=== PATIENT | male | born 1950 | race Caucasian/White ===

== ENCOUNTER 2017-10-27 08:18 | Inpatient (IN) ==
[2017-10-27] MEDS ORDERED: ETOMIDATE 20 MG/10 ML VIAL IV ONE (09:00)
[2017-10-27] MEDS ORDERED: ACETAMINOPHEN 325 MG TABLET PO PRN (10:28)
[2017-10-27] MEDS ORDERED: ONDANSETRON 4 MG/2 ML VIAL IV PRN (10:28)
[2017-10-27] MEDS ORDERED: DEXTROSE 50% 25 GM/50 ML VIAL IV PRN (10:45)
[2017-10-27] MEDS ORDERED: GLUCAGON 1 MG VIAL IM PRN (10:45)
[2017-10-27 11:05] LABS: Basophils # 0.1 10*3/uL (0.0-0.2); Basophils % 0.5 % (0.0-0.8); Eosinophils # 0.1 10*3/uL (0.0-0.87); Hematocrit 32.7 VOL% (42.0-52.0); Hemoglobin 10.6 GM/DL (14.0-18.0); Immature Granulocytes % 0.8 %; Immature Granulocytes Absolute 0.09 #; Lymphocytes # 0.5 10*3/uL (1.4-4.0); Lymphocytes % 4.9 % (21.2-54.2); Mean Corpuscular HGB Conc 32.4 GM/DL (32-36); Mean Corpuscular Hemoglobin 29 PG (27-34); Mean Corpuscular Volume 88.1 FL (87-102); Mean Platelet Volume 10.8 FL (9.6-12.0); Monocytes # 0.6 10*3/uL (0.11-0.8); Monocytes % 5.2 % (1.7-12.7); NRBC # 0.02 10*3/uL; Neutrophils # 9.4 10*3/uL (1.4-7.4); Neutrophils % 87.6 % (38.7-73.9); Platelet Count 180 T/CUMM (130-400); Red Blood Count 3.71 MC/CUMM (3.8-5.5); Red Cell Distribution Width 16.3 % (9.3-17.3); White Blood Count 10.8 T/CUMM (4-12)
[2017-10-27 11:26] LABS: Elliptocytes Few; Eosinophils 1 % (0-10); Giant Platelets Few; Hypochromasia 1+; Lymphocytes 8 % (20-55); Platelet Estimate Normal; Segmented Neutrophils 87 % (50-85); Total Cells Counted 100
[2017-10-27 11:38] LABS: Calcium 8.1 MG/DL (8.5-10.1); Magnesium 3.1 MG/DL (1.8-2.4); Osmolality,Calculated 327.5 MOS/KG (273-304); Potassium 3.2 MMOL/L (3.5-5.1)
[2017-10-27 11:40] LABS: Alanine Aminotransferase 9 U/L (16-61); Albumin 3.3 G/DL (3.4-5.0); Alkaline Phosphatase 236 U/L (45-117); Aspartate Amino Transferase < 3 U/L (0-37); Blood Urea Nitrogen 127 MG/DL (7-18); Calcium 8.4 MG/DL (8.5-10.1); Glucose 255 MG/DL (74-106); Osmolality,Calculated 324.7 MOS/KG (273-304); Potassium 3.2 MMOL/L (3.5-5.1); Sodium 138 MMOL/L (136-145); Total Protein 6.8 G/DL (6.4-8.3)
[2017-10-27] MEDS: INSULIN LISPRO 100 UNIT/ML SUBCUT SCH ×3 (12:37→22:18)
[2017-10-27 13:18] LABS: INR 1.1; PT Patient Result 11.3 SECS; Partial Thromboplastin Time 31.9 SECS (0-40)
[2017-10-27] MEDS ORDERED: BUPIVACAINE 0.25% 50 ML VIAL ONE (14:33)
[2017-10-27] MEDS ORDERED: HEPARIN 5,000 UNIT/1 ML VIAL ONE (14:34)
[2017-10-27] MEDS ORDERED: CLINDAMYCIN INJ 900 MG in PREMIX 1 EACH IV ONE (15:00)
[2017-10-27 15:09] LABS: Hepatitis A Ab IgM Quant < 0.02 Index; Hepatitis A Ab IgM Result Negative (Negative); Hepatitis B Core IgM Quant 0.12 Index; Hepatitis B Core IgM Result Negative (Negative); Hepatitis B Surface Ag Quant < 0.10 Index; Hepatitis B Surface Ag Result Negative (Negative); Hepatitis C Virus Ab Quant 0.03 Index; Hepatitis C Virus Ab Result Negative (Negative)
[2017-10-27] MEDS ORDERED: PROPOFOL 200 MG/20 ML VIAL IV ONE (16:12)
[2017-10-27] MEDS ORDERED: MIDAZOLAM 2 MG/2 ML VIAL ONE (16:13)
[2017-10-27] MEDS ORDERED: ONDANSETRON 4 MG/2 ML VIAL ONE (16:13)
[2017-10-27] MEDS ORDERED: KETOROLAC 30 MG/1 ML VIAL ONE (16:13)
[2017-10-27] MEDS ORDERED: DEXAMETHASONE 10 MG/1 ML VIAL ONE (16:13)
[2017-10-27] MEDS ORDERED: GLYCOPYRROLATE 0.4 MG/2 ML VIAL ONE (16:13)
[2017-10-27] MEDS ORDERED: SODIUM CHLORIDE 0.9% 250 ML IV ONE (16:14)
[2017-10-28 06:59] LABS: Basophils % 0.2 % (0.0-0.8); Hematocrit 30.2 VOL% (42.0-52.0); Hemoglobin 9.8 GM/DL (14.0-18.0); Immature Granulocytes % 1.3 %; Immature Granulocytes Absolute 0.08 #; Lymphocytes # 0.2 10*3/uL (1.4-4.0); Lymphocytes % 2.8 % (21.2-54.2); Mean Corpuscular HGB Conc 32.5 GM/DL (32-36); Mean Corpuscular Hemoglobin 29 PG (27-34); Mean Corpuscular Volume 89.3 FL (87-102); Mean Platelet Volume 11.1 FL (9.6-12.0); Monocytes # 0.1 10*3/uL (0.11-0.8); Monocytes % 0.9 % (1.7-12.7); NRBC # 0.02 10*3/uL; Neutrophils % 94.8 % (38.7-73.9); Platelet Count 171 T/CUMM (130-400); Red Blood Count 3.38 MC/CUMM (3.8-5.5); Red Cell Distribution Width 16.4 % (9.3-17.3); White Blood Count 6.4 T/CUMM (4-12)
[2017-10-28 07:01] LABS: Calcium 8.5 MG/DL (8.5-10.1); Magnesium 2.8 MG/DL (1.8-2.4); Osmolality,Calculated 309.8 MOS/KG (273-304)
[2017-10-28 07:27] LABS: Lymphocytes 2 % (20-55); Nucleated Red Blood Cells 2 (0-5); Platelet Estimate Normal; Segmented Neutrophils 98 % (50-85); Total Cells Counted 100
[2017-10-28 07:28] LABS: Acanthocytes Few; Ovalocytes Few
[2017-10-28] MEDS: INSULIN LISPRO 100 UNIT/ML SUBCUT SCH ×4 (08:41→20:43)
[2017-10-28] MEDS: EZETIMIBE 10 MG TABLET PO SCH (08:42)
[2017-10-28] MEDS: PANTOPRAZOLE 40 MG TABLET PO SCH (08:42)
[2017-10-28 14:35] LABS: ABG Base Excess -3.3 MMOL/L (-2.5-2.5); ABG HCO3 21.6 MMOL/L (20-26); ABG Oxygen Saturation 95.2 % (95-100); ABG PCO2 40.8 MM HG (35-48); ABG PH 7.344 (7.35-7.45); ABG TCO2 20.4 MMOL/L (23-27)
[2017-10-29 06:35] LABS: Basophils % 0.3 % (0.0-0.8); Eosinophils # 0.2 10*3/uL (0.0-0.87); Hematocrit 28.7 VOL% (42.0-52.0); Hemoglobin 9.2 GM/DL (14.0-18.0); Immature Granulocytes % 0.5 %; Immature Granulocytes Absolute 0.04 #; Lymphocytes # 0.7 10*3/uL (1.4-4.0); Mean Corpuscular HGB Conc 32.1 GM/DL (32-36); Mean Corpuscular Hemoglobin 28 PG (27-34); Mean Corpuscular Volume 88.6 FL (87-102); Mean Platelet Volume 11.6 FL (9.6-12.0); Monocytes # 0.6 10*3/uL (0.11-0.8); Monocytes % 7.2 % (1.7-12.7); Neutrophils # 6.2 10*3/uL (1.4-7.4); Platelet Count 183 T/CUMM (130-400); Red Blood Count 3.24 MC/CUMM (3.8-5.5); Red Cell Distribution Width 16.7 % (9.3-17.3); White Blood Count 7.6 T/CUMM (4-12)
[2017-10-29 07:01] LABS: Calcium 8.5 MG/DL (8.5-10.1); Magnesium 2.6 MG/DL (1.8-2.4); Osmolality,Calculated 297.7 MOS/KG (273-304); Potassium 3.5 MMOL/L (3.5-5.1)
[2017-10-29] MEDS: PANTOPRAZOLE 40 MG TABLET PO SCH (09:41)
[2017-10-29] MEDS: EZETIMIBE 10 MG TABLET PO SCH (09:41)
[2017-10-29] MEDS: INSULIN LISPRO 100 UNIT/ML SUBCUT SCH ×4 (09:41→21:01)
[2017-10-29] MEDS: ALBUTEROL/IPRATROPIUM 3 ML NEB RESP TX SCH ×2 (14:50→19:10)
[2017-10-29] MEDS ORDERED: ALBUTEROL 2.5 MG/3 ML NEB RESP TX PRN (18:17)
[2017-10-29] MEDS: DILTIAZEM CD 120 MG CAPSULE PO SCH (20:28)
[2017-10-30] MEDS: ALBUTEROL/IPRATROPIUM 3 ML NEB RESP TX SCH ×4 (00:38→19:35)
[2017-10-30 06:23] LABS: Basophils % 0.4 % (0.0-0.8); Eosinophils # 0.3 10*3/uL (0.0-0.87); Eosinophils % 3.6 % (0.00-10.9); Immature Granulocytes % 0.6 %; Immature Granulocytes Absolute 0.05 #; Lymphocytes # 0.7 10*3/uL (1.4-4.0); Lymphocytes % 9.4 % (21.2-54.2); Mean Corpuscular HGB Conc 32.3 GM/DL (32-36); Mean Corpuscular Hemoglobin 29 PG (27-34); Mean Corpuscular Volume 89.1 FL (87-102); Mean Platelet Volume 10.7 FL (9.6-12.0); Monocytes # 0.7 10*3/uL (0.11-0.8); Monocytes % 8.8 % (1.7-12.7); Neutrophils # 6.1 10*3/uL (1.4-7.4); Neutrophils % 77.2 % (38.7-73.9); Platelet Count 175 T/CUMM (130-400); Red Blood Count 3.48 MC/CUMM (3.8-5.5); Red Cell Distribution Width 16.5 % (9.3-17.3); White Blood Count 7.9 T/CUMM (4-12)
[2017-10-30 06:53] LABS: Calcium 8.4 MG/DL (8.5-10.1); Magnesium 2.2 MG/DL (1.8-2.4); Potassium 3.4 MMOL/L (3.5-5.1)
[2017-10-30] MEDS: INSULIN LISPRO 100 UNIT/ML SUBCUT SCH ×4 (07:41→20:54)
[2017-10-30] MEDS: EZETIMIBE 10 MG TABLET PO SCH (08:02)
[2017-10-30] MEDS: PANTOPRAZOLE 40 MG TABLET PO SCH (08:02)
[2017-10-30 08:37] LABS: Apearance,Urine Slightly Hazy (Clear); Bacteria,Urine Occasional /HPF (Few); Bilirubin,Urine Negative (Negative); Blood, Urine Negative (Negative); Glucose,Urine (UA) Negative (Negative); Hyaline Casts,Urine 1 /LPF (0-3); Ketones,Urine 5 mg/dL (Negative); Mucus,Urine Occasional /LPF (Occasional); Nitrite,Urine Negative (Negative); Protein,Urine 100 MG/DL; RBC,Urine 2 /HPF (0-4); Squamous Epithelial Cell,Urine Occasional /HPF (0-10); Urine Color Amber (Yellow); Urine Specific Gravity 1.017 (1.001-1.035); Urine Urobilinogen < 2.0 EU/DL (0.2-1.0); WBC,Urine 2 /HPF (0-6)
[2017-10-30] MEDS: CYPROHEPTADINE 4 MG TABLET PO SCH ×2 (16:15→21:15)
[2017-10-30] MEDS: DILTIAZEM CD 120 MG CAPSULE PO SCH (20:23)
[2017-10-31] MEDS: ALBUTEROL/IPRATROPIUM 3 ML NEB RESP TX SCH ×4 (02:00→19:11)
[2017-10-31 06:42] LABS: Basophils % 0.4 % (0.0-0.8); Eosinophils # 0.3 10*3/uL (0.0-0.87); Eosinophils % 3.9 % (0.00-10.9); Hematocrit 31.9 VOL% (42.0-52.0); Hemoglobin 10.4 GM/DL (14.0-18.0); Immature Granulocytes % 0.5 %; Immature Granulocytes Absolute 0.04 #; Lymphocytes # 0.7 10*3/uL (1.4-4.0); Lymphocytes % 8.4 % (21.2-54.2); Mean Corpuscular HGB Conc 32.6 GM/DL (32-36); Mean Corpuscular Hemoglobin 29 PG (27-34); Mean Corpuscular Volume 88.9 FL (87-102); Mean Platelet Volume 11.2 FL (9.6-12.0); Monocytes # 0.8 10*3/uL (0.11-0.8); Monocytes % 10.5 % (1.7-12.7); Neutrophils # 6.1 10*3/uL (1.4-7.4); Neutrophils % 76.3 % (38.7-73.9); Platelet Count 187 T/CUMM (130-400); Red Blood Count 3.59 MC/CUMM (3.8-5.5); Red Cell Distribution Width 16.3 % (9.3-17.3)
[2017-10-31 07:09] LABS: Calcium 8.7 MG/DL (8.5-10.1); Magnesium 2.2 MG/DL (1.8-2.4); Osmolality,Calculated 279.8 MOS/KG (273-304); Potassium 3.2 MMOL/L (3.5-5.1)
[2017-10-31] MEDS: CYPROHEPTADINE 4 MG TABLET PO SCH ×2 (08:21→21:28)
[2017-10-31] MEDS: BISOPROLOL 5 MG TABLET PO SCH (08:21)
[2017-10-31] MEDS: PANTOPRAZOLE 40 MG TABLET PO SCH (08:21)
[2017-10-31] MEDS: EZETIMIBE 10 MG TABLET PO SCH (08:21)
[2017-10-31] MEDS ORDERED: METOPROLOL TARTRATE 5 MG/5 ML VIAL IV ONE (08:30)
[2017-10-31] MEDS: INSULIN LISPRO 100 UNIT/ML SUBCUT SCH ×4 (08:44→21:29)
[2017-10-31] MEDS ORDERED: BISOPROLOL 5 MG TABLET PO SCH (09:00)
[2017-10-31] MEDS: ZINC OXIDE PASTE 113 GM TUBE TOP SCH ×2 (15:46→21:29)
[2017-10-31] MEDS: DILTIAZEM CD 120 MG CAPSULE PO SCH (21:28)
[2017-11-01] MEDS: ALBUTEROL/IPRATROPIUM 3 ML NEB RESP TX SCH ×4 (00:39→20:36)
[2017-11-01] MEDS: INSULIN LISPRO 100 UNIT/ML SUBCUT SCH ×4 (07:28→21:18)
[2017-11-01] MEDS: ZINC OXIDE PASTE 113 GM TUBE TOP SCH ×2 (08:27→21:21)
[2017-11-01] MEDS: EZETIMIBE 10 MG TABLET PO SCH (08:28)
[2017-11-01] MEDS: BISOPROLOL 5 MG TABLET PO SCH ×2 (08:28→10:08)
[2017-11-01] MEDS: CYPROHEPTADINE 4 MG TABLET PO SCH ×2 (08:28→21:18)
[2017-11-01] MEDS: PANTOPRAZOLE 40 MG TABLET PO SCH (08:28)
[2017-11-01] MEDS ORDERED: HEPARIN 10,000 UNIT/10 ML VIAL IV PRN (18:34)
[2017-11-01] MEDS: DILTIAZEM CD 240 MG CAPSULE PO SCH (21:18)
[2017-11-02] MEDS: ALBUTEROL/IPRATROPIUM 3 ML NEB RESP TX SCH ×4 (01:19→19:11)
[2017-11-02] MEDS: INSULIN LISPRO 100 UNIT/ML SUBCUT SCH ×4 (08:40→20:34)
[2017-11-02] MEDS: EZETIMIBE 10 MG TABLET PO SCH (08:41)
[2017-11-02] MEDS: BISOPROLOL 5 MG TABLET PO SCH (08:41)
[2017-11-02] MEDS: CYPROHEPTADINE 4 MG TABLET PO SCH ×2 (08:41→20:35)
[2017-11-02] MEDS: PANTOPRAZOLE 40 MG TABLET PO SCH (08:41)
[2017-11-02] MEDS: ZINC OXIDE PASTE 113 GM TUBE TOP SCH ×2 (08:42→20:35)
[2017-11-02] MEDS ORDERED: EYE WASH SOLN 118 ML BOTTLE BOTH EYES PRN (12:03)
[2017-11-02] MEDS ORDERED: POLYVINYL ALCOHOL 1.4% OPH SOLN 15 ML BOTTLE BOTH EYES PRN (12:24)
[2017-11-02] MEDS: DILTIAZEM CD 240 MG CAPSULE PO SCH (20:35)
[2017-11-03] MEDS: ALBUTEROL/IPRATROPIUM 3 ML NEB RESP TX SCH ×4 (00:06→21:55)
[2017-11-03 05:04] LABS: Basophils % 0.5 % (0.0-0.8); Eosinophils # 0.4 10*3/uL (0.0-0.87); Eosinophils % 5.4 % (0.00-10.9); Hematocrit 30.4 VOL% (42.0-52.0); Hemoglobin 9.7 GM/DL (14.0-18.0); Immature Granulocytes % 0.6 %; Immature Granulocytes Absolute 0.05 #; Lymphocytes # 0.9 10*3/uL (1.4-4.0); Lymphocytes % 11.4 % (21.2-54.2); Mean Corpuscular HGB Conc 31.9 GM/DL (32-36); Mean Corpuscular Hemoglobin 28 PG (27-34); Mean Corpuscular Volume 89.1 FL (87-102); Mean Platelet Volume 11.2 FL (9.6-12.0); Monocytes # 0.7 10*3/uL (0.11-0.8); Monocytes % 8.5 % (1.7-12.7); Neutrophils # 5.8 10*3/uL (1.4-7.4); Neutrophils % 73.6 % (38.7-73.9); Platelet Count 174 T/CUMM (130-400); Red Blood Count 3.41 MC/CUMM (3.8-5.5); Red Cell Distribution Width 16.3 % (9.3-17.3); White Blood Count 7.9 T/CUMM (4-12)
[2017-11-03 05:33] LABS: Calcium 8.3 MG/DL (8.5-10.1); Magnesium 2.4 MG/DL (1.8-2.4); Osmolality,Calculated 295.7 MOS/KG (273-304); Potassium 3.2 MMOL/L (3.5-5.1)
[2017-11-03] MEDS: INSULIN LISPRO 100 UNIT/ML SUBCUT SCH ×3 (08:34→17:26)
[2017-11-03] MEDS: CYPROHEPTADINE 4 MG TABLET PO SCH ×2 (13:37→21:40)
[2017-11-03] MEDS: ZINC OXIDE PASTE 113 GM TUBE TOP SCH ×2 (13:37→21:41)
[2017-11-03] MEDS: ASPIRIN EC 81 MG TABLET PO SCH (13:37)
[2017-11-03] MEDS: EZETIMIBE 10 MG TABLET PO SCH (13:37)
[2017-11-03] MEDS: BISOPROLOL 5 MG TABLET PO SCH (13:37)
[2017-11-03] MEDS: PANTOPRAZOLE 40 MG TABLET PO SCH (13:38)
[2017-11-03] MEDS: LISINOPRIL 5 MG TABLET PO SCH (14:58)
[2017-11-03] MEDS ORDERED: diphenhydrAMINE CAP 25 MG CAPSULE PO ONE (15:45)
[2017-11-03] MEDS ORDERED: POTASSIUM CHLORIDE RIDER 10 MEQ in PREMIX 1 EACH IV PRN (15:45)
[2017-11-03] MEDS ORDERED: MAGNESIUM SULF RIDER 2 GM in PREMIX 1 EACH IV PRN (15:45)
[2017-11-03] MEDS ORDERED: DIAZEPAM 5 MG TABLET PO ONE (15:45)
[2017-11-03] MEDS: DILTIAZEM CD 240 MG CAPSULE PO SCH (21:39)
[2017-11-04] MEDS: INSULIN LISPRO 100 UNIT/ML SUBCUT SCH ×5 (00:49→20:36)
[2017-11-04] MEDS: ALBUTEROL/IPRATROPIUM 3 ML NEB RESP TX SCH ×3 (02:03→18:53)
[2017-11-04 04:47] LABS: Basophils # 0.1 10*3/uL (0.0-0.2); Basophils % 0.6 % (0.0-0.8); Eosinophils # 0.4 10*3/uL (0.0-0.87); Eosinophils % 4.8 % (0.00-10.9); Hematocrit 32.6 VOL% (42.0-52.0); Hemoglobin 10.3 GM/DL (14.0-18.0); Immature Granulocytes % 0.9 %; Immature Granulocytes Absolute 0.07 #; Lymphocytes # 0.9 10*3/uL (1.4-4.0); Lymphocytes % 11.4 % (21.2-54.2); Mean Corpuscular HGB Conc 31.6 GM/DL (32-36); Mean Corpuscular Hemoglobin 28 PG (27-34); Mean Corpuscular Volume 89.1 FL (87-102); Mean Platelet Volume 11.3 FL (9.6-12.0); Monocytes # 0.8 10*3/uL (0.11-0.8); Monocytes % 10.5 % (1.7-12.7); Neutrophils # 5.7 10*3/uL (1.4-7.4); Neutrophils % 71.8 % (38.7-73.9); Platelet Count 196 T/CUMM (130-400); Red Blood Count 3.66 MC/CUMM (3.8-5.5); Red Cell Distribution Width 16.1 % (9.3-17.3); White Blood Count 7.9 T/CUMM (4-12)
[2017-11-04 04:51] LABS: PT Patient Result 10.9 SECS
[2017-11-04 05:17] LABS: Calcium 8.9 MG/DL (8.5-10.1); Magnesium 2.2 MG/DL (1.8-2.4); Potassium 3.5 MMOL/L (3.5-5.1)
[2017-11-04] MEDS ORDERED: DIAZEPAM 5 MG TABLET ONE (07:24)
[2017-11-04] MEDS ORDERED: diphenhydrAMINE CAP 25 MG CAPSULE ONE (07:24)
[2017-11-04] MEDS: CYPROHEPTADINE 4 MG TABLET PO SCH ×2 (08:03→20:34)
[2017-11-04] MEDS: BISOPROLOL 5 MG TABLET PO SCH (08:03)
[2017-11-04] MEDS: PANTOPRAZOLE 40 MG TABLET PO SCH (08:03)
[2017-11-04] MEDS: EZETIMIBE 10 MG TABLET PO SCH (08:03)
[2017-11-04] MEDS: LISINOPRIL 5 MG TABLET PO SCH (08:03)
[2017-11-04] MEDS: ASPIRIN EC 81 MG TABLET PO SCH (08:03)
[2017-11-04] MEDS: ZINC OXIDE PASTE 113 GM TUBE TOP SCH ×2 (08:04→20:34)
[2017-11-04] MEDS ORDERED: LIDOCAINE 1% 20 ML VIAL ONE (08:35)
[2017-11-04] MEDS ORDERED: HEPARIN/NACL 0.9% 2 UNITS/ML 2,000 ML IV ONE (08:35)
[2017-11-04] MEDS ORDERED: HYDROmorphone 2 MG/1 ML VIAL ONE (09:30)
[2017-11-04] MEDS ORDERED: BIVALIRUDIN 250 MG VIAL IV ONE (09:45)
[2017-11-04] MEDS ORDERED: TICAGRELOR 90 MG TABLET ONE (10:15)
[2017-11-04] MEDS: TICAGRELOR 90 MG TABLET PO SCH (20:33)
[2017-11-04] MEDS: DILTIAZEM CD 240 MG CAPSULE PO SCH (20:34)
[2017-11-05] MEDS: ALBUTEROL/IPRATROPIUM 3 ML NEB RESP TX SCH ×4 (00:33→19:25)
[2017-11-05 05:35] LABS: Basophils # 0.1 10*3/uL (0.0-0.2); Basophils % 0.7 % (0.0-0.8); Eosinophils # 0.3 10*3/uL (0.0-0.87); Eosinophils % 4.6 % (0.00-10.9); Hematocrit 31.6 VOL% (42.0-52.0); Hemoglobin 9.7 GM/DL (14.0-18.0); Immature Granulocytes % 1.1 %; Immature Granulocytes Absolute 0.08 #; Lymphocytes # 0.8 10*3/uL (1.4-4.0); Lymphocytes % 10.2 % (21.2-54.2); Mean Corpuscular HGB Conc 30.7 GM/DL (32-36); Mean Corpuscular Hemoglobin 28 PG (27-34); Mean Corpuscular Volume 89.8 FL (87-102); Mean Platelet Volume 11.6 FL (9.6-12.0); Monocytes # 0.8 10*3/uL (0.11-0.8); Monocytes % 11.1 % (1.7-12.7); Neutrophils # 5.3 10*3/uL (1.4-7.4); Neutrophils % 72.3 % (38.7-73.9); Platelet Count 198 T/CUMM (130-400); Red Blood Count 3.52 MC/CUMM (3.8-5.5); Red Cell Distribution Width 16.4 % (9.3-17.3); White Blood Count 7.3 T/CUMM (4-12)
[2017-11-05 05:57] LABS: Eosinophils 6 % (0-10); Giant Platelets Few; Hypochromasia 1+; Lymphocytes 9 % (20-55); Ovalocytes Slight; Platelet Estimate Adequate; Segmented Neutrophils 73 % (50-85); Total Cells Counted 100
[2017-11-05 06:22] LABS: Blood Urea Nitrogen 44 MG/DL (7-18); Calcium 8.2 MG/DL (8.5-10.1); Glucose 171 MG/DL (74-106); Osmolality,Calculated 280.4 MOS/KG (273-304); Sodium 133 MMOL/L (136-145); Troponin I Only 0.033 NG/ML (0.00-0.045)
[2017-11-05] MEDS: EZETIMIBE 10 MG TABLET PO SCH (08:56)
[2017-11-05] MEDS: TICAGRELOR 90 MG TABLET PO SCH ×2 (08:56→21:16)
[2017-11-05] MEDS: CYPROHEPTADINE 4 MG TABLET PO SCH ×2 (08:56→21:16)
[2017-11-05] MEDS: ASPIRIN EC 81 MG TABLET PO SCH (08:56)
[2017-11-05] MEDS: PANTOPRAZOLE 40 MG TABLET PO SCH (08:56)
[2017-11-05] MEDS: INSULIN LISPRO 100 UNIT/ML SUBCUT SCH ×4 (08:57→21:17)
[2017-11-05] MEDS: LISINOPRIL 5 MG TABLET PO SCH (08:57)
[2017-11-05] MEDS: BISOPROLOL 5 MG TABLET PO SCH (08:57)
[2017-11-05] MEDS: ZINC OXIDE PASTE 113 GM TUBE TOP SCH ×2 (08:57→21:17)
[2017-11-06] MEDS: ALBUTEROL/IPRATROPIUM 3 ML NEB RESP TX SCH ×2 (00:23→07:26)
[2017-11-06] MEDS: INSULIN LISPRO 100 UNIT/ML SUBCUT SCH ×2 (08:45→12:42)
[2017-11-06] MEDS: EZETIMIBE 10 MG TABLET PO SCH (08:46)
[2017-11-06] MEDS: PANTOPRAZOLE 40 MG TABLET PO SCH (08:46)
[2017-11-06] MEDS: ASPIRIN EC 81 MG TABLET PO SCH (08:46)
[2017-11-06] MEDS: TICAGRELOR 90 MG TABLET PO SCH (08:46)
[2017-11-06] MEDS: CYPROHEPTADINE 4 MG TABLET PO SCH (08:46)
[2017-11-06] MEDS: ZINC OXIDE PASTE 113 GM TUBE TOP SCH (08:47)
[2017-11-06] MEDS ORDERED: BISOPROLOL 5 MG TABLET PO SCH ×2 (09:00)
[2017-11-06] MEDS ORDERED: BISOPROLOL 5 MG TABLET PO ONE (10:03)
[2017-11-06] MEDS ORDERED: FERROUS SULFATE 325 MG TABLET PO SCH (10:30)
[2017-11-06] MEDS ORDERED: OMEGA 3 ACID ETHYL ESTERS 1 GM CAPSULE PO SCH (10:30)
[2017-11-06 12:48] VITALS: BP 123/59
[2017-11-07] MEDS ORDERED: ATORVASTATIN 40 MG TABLET PO SCH (09:00)
[2017-11-07] MEDS ORDERED: BISOPROLOL 5 MG TABLET PO SCH (09:00)
== END 2017-11-06 13:25 | disposition home or self-care (01) | DRG 246 ==
LOC: N.2E 09:20 → SUATTDRO 09:20 → N.TELES 10-31 09:09
PROVIDERS: ADMIT Hospitalist; ATTEND Internal Medicine

== ENCOUNTER 2018-05-18 17:52 | Inpatient (IN) ==
[2018-05-18 18:28] LABS: Basophils # 0.1 10*3/uL (0.0-0.2); Basophils % 0.4 % (0.0-0.8); Eosinophils # 0.2 10*3/uL (0.0-0.87); Eosinophils % 1.3 % (0.00-10.9); Hematocrit 35.1 VOL% (42.0-52.0); Hemoglobin 11.5 GM/DL (14.0-18.0); Immature Granulocytes % 1.1 %; Immature Granulocytes Absolute 0.15 #; Lymphocytes # 1.3 10*3/uL (1.4-4.0); Lymphocytes % 9.3 % (21.2-54.2); Mean Corpuscular HGB Conc 32.8 GM/DL (32-36); Mean Corpuscular Hemoglobin 33 PG (27-34); Mean Corpuscular Volume 99.7 FL (87-102); Mean Platelet Volume 10.8 FL (9.6-12.0); Monocytes # 0.9 10*3/uL (0.11-0.8); Monocytes % 6.4 % (1.7-12.7); NRBC # 0.02 10*3/uL; Neutrophils % 81.5 % (38.7-73.9); Platelet Count 197 T/CUMM (130-400); Red Blood Count 3.52 MC/CUMM (3.8-5.5); Red Cell Distribution Width 15.7 % (9.3-17.3); White Blood Count 13.5 T/CUMM (4-12)
[2018-05-18 19:26] LABS: Calcium 8.6 MG/DL (8.5-10.1)
[2018-05-18 19:27] LABS: Albumin 3.1 G/DL (3.4-5.0); Bilirubin,Total 0.5 MG/DL (0.2-1.0); Osmolality,Calculated 277.8 MOS/KG (273-304); Potassium 5.7 MMOL/L (3.5-5.1); Total Protein 7.5 G/DL (6.4-8.3)
[2018-05-18] MEDS ORDERED: SODIUM CHLORIDE 0.9% 500 ML IV STA (23:22)
[2018-05-19] MEDS ORDERED: SODIUM POLYSTYRENE SULFATE 15 GM/60 ML BOTTLE PO STA (00:08)
[2018-05-19] MEDS ORDERED: AMIODARONE INJ 150 MG in DEXTROSE 5% 100 ML IV ONE (01:22)
[2018-05-19] MEDS ORDERED: PIPERACILLIN/TAZOBACTAM 2,250 MG in SODIUM CHLORIDE 0.9% 100 ML IV STA (01:23)
[2018-05-19] MEDS ORDERED: GLUCAGON 1 MG VIAL IM PRN (01:46)
[2018-05-19] MEDS ORDERED: DEXTROSE 50% 25 GM/50 ML VIAL IV PRN (01:46)
[2018-05-19] MEDS ORDERED: AMIODARONE INJ 450 MG in DEXTROSE 5% 241 ML IV SCH ×2 (03:30→09:30)
[2018-05-19] MEDS: metroNIDAZOLE INJ 500 MG in PREMIX 1 EACH IV SCH ×3 (03:50→17:48)
[2018-05-19] MEDS: PIPERACILLIN/TAZOBACTAM 3,375 MG in SODIUM CHLORIDE 0.9% 100 ML IV SCH ×2 (04:50→18:48)
[2018-05-19 05:44] LABS: Basophils # 0.1 10*3/uL (0.0-0.2); Basophils % 0.5 % (0.0-0.8); Eosinophils # 0.2 10*3/uL (0.0-0.87); Eosinophils % 1.9 % (0.00-10.9); Hematocrit 33.4 VOL% (42.0-52.0); Hemoglobin 10.9 GM/DL (14.0-18.0); Lymphocytes % 10.1 % (21.2-54.2); Mean Corpuscular HGB Conc 32.6 GM/DL (32-36); Mean Corpuscular Hemoglobin 33 PG (27-34); Monocytes # 0.9 10*3/uL (0.11-0.8); Monocytes % 8.4 % (1.7-12.7); Neutrophils # 7.9 10*3/uL (1.4-7.4); Neutrophils % 78.1 % (38.7-73.9); Red Blood Count 3.34 MC/CUMM (3.8-5.5); Red Cell Distribution Width 15.4 % (9.3-17.3); White Blood Count 10.2 T/CUMM (4-12)
[2018-05-19 05:47] LABS: Platelet Count 155 T/CUMM (130-400)
[2018-05-19 06:11] LABS: Macrocytosis 2+; Platelet Estimate Normal
[2018-05-19 06:15] LABS: Albumin 2.6 G/DL (3.4-5.0); Bilirubin,Total 0.4 MG/DL (0.2-1.0); Calcium 8.1 MG/DL (8.5-10.1); Osmolality,Calculated 282.7 MOS/KG (273-304); Potassium 5.6 MMOL/L (3.5-5.1)
[2018-05-19] MEDS: MORPHINE 4 MG/1 ML VIAL IV PRN ×2 (07:50→11:46)
[2018-05-19] MEDS ORDERED: DILTIAZEM CD 300 MG CAPSULE PO SCH (09:00)
[2018-05-19] MEDS ORDERED: PANTOPRAZOLE 40 MG TABLET PO SCH (09:00)
[2018-05-19] MEDS ORDERED: BISOPROLOL 5 MG TABLET PO SCH (09:00)
[2018-05-19] MEDS: INSULIN REGULAR 100 UNIT/ML SUBCUT SCH ×4 (09:36→20:41)
[2018-05-19] MEDS: PANTOPRAZOLE 40 MG VIAL IV SCH (09:36)
[2018-05-19] MEDS: CLOPIDOGREL 75 MG TABLET PO SCH (09:37)
[2018-05-19] MEDS: POLYCARBOPHIL 625 MG TABLET PO SCH (09:37)
[2018-05-19] MEDS: NOREPINEPHRINE 8 MG in SODIUM CHLORIDE 0.9% 242 ML IV PRN ×2 (12:38→17:40)
[2018-05-19 16:43] LABS: Calcium 8.4 MG/DL (8.5-10.1); Osmolality,Calculated 284.5 MOS/KG (273-304)
[2018-05-19] MEDS ORDERED: ALBUMIN 25% 25 GM in PREMIX 1 EACH IV ONE (17:39)
[2018-05-19] MEDS ORDERED: CALCIUM GLUCONATE 1,000 MG in SODIUM CHLORIDE 0.9% 100 ML IV ONE (17:39)
[2018-05-19 17:50] LABS: Basophils # 0.1 10*3/uL (0.0-0.2); Basophils % 0.5 % (0.0-0.8); Eosinophils # 0.1 10*3/uL (0.0-0.87); Eosinophils % 0.9 % (0.00-10.9); Hemoglobin 11.9 GM/DL (14.0-18.0); Immature Granulocytes Absolute 0.26 #; Lymphocytes # 1.4 10*3/uL (1.4-4.0); Lymphocytes % 10.3 % (21.2-54.2); Mean Corpuscular HGB Conc 33.1 GM/DL (32-36); Mean Corpuscular Hemoglobin 33 PG (27-34); Mean Corpuscular Volume 98.6 FL (87-102); Mean Platelet Volume 11.1 FL (9.6-12.0); Monocytes # 1.1 10*3/uL (0.11-0.8); Monocytes % 8.4 % (1.7-12.7); NRBC # 0.04 10*3/uL; Neutrophils # 10.4 10*3/uL (1.4-7.4); Neutrophils % 77.9 % (38.7-73.9); Platelet Count 254 T/CUMM (130-400); Red Blood Count 3.65 MC/CUMM (3.8-5.5); Red Cell Distribution Width 15.6 % (9.3-17.3); White Blood Count 13.3 T/CUMM (4-12)
[2018-05-19] MEDS: POLYETHYLENE GLYCOL POWDER 17 GM PACK PO SCH ×2 (18:49→21:38)
[2018-05-19] MEDS ORDERED: ATORVASTATIN 80 MG TABLET PO SCH (21:00)
[2018-05-20] MEDS: metroNIDAZOLE INJ 500 MG in PREMIX 1 EACH IV SCH (02:15)
[2018-05-20 05:14] LABS: Calcium 8.1 MG/DL (8.5-10.1); Osmolality,Calculated 280.4 MOS/KG (273-304); Potassium 4.8 MMOL/L (3.5-5.1)
[2018-05-20 05:25] LABS: Albumin 2.6 G/DL (3.4-5.0); Bilirubin,Total 0.8 MG/DL (0.2-1.0); Osmolality,Calculated 283.1 MOS/KG (273-304); Potassium 4.7 MMOL/L (3.5-5.1); Total Protein 6.7 G/DL (6.4-8.3)
[2018-05-20] MEDS: PIPERACILLIN/TAZOBACTAM 3,375 MG in SODIUM CHLORIDE 0.9% 100 ML IV SCH ×2 (06:34→16:30)
[2018-05-20 07:28] LABS: Basophils % 0.5 % (0.0-0.8); Eosinophils # 0.2 10*3/uL (0.0-0.87); Eosinophils % 2.6 % (0.00-10.9); Hematocrit 30.1 VOL% (42.0-52.0); Immature Granulocytes % 1.4 %; Immature Granulocytes Absolute 0.12 #; Lymphocytes # 0.7 10*3/uL (1.4-4.0); Lymphocytes % 8.5 % (21.2-54.2); Mean Corpuscular HGB Conc 32.6 GM/DL (32-36); Mean Corpuscular Hemoglobin 33 PG (27-34); Mean Corpuscular Volume 100.3 FL (87-102); Mean Platelet Volume 11.1 FL (9.6-12.0); Monocytes # 0.7 10*3/uL (0.11-0.8); Monocytes % 7.4 % (1.7-12.7); Neutrophils % 79.6 % (38.7-73.9); Red Cell Distribution Width 15.3 % (9.3-17.3)
[2018-05-20 07:29] LABS: Hemoglobin 9.8 GM/DL (14.0-18.0); White Blood Count 8.7 T/CUMM (4-12)
[2018-05-20 07:30] LABS: Platelet Count 170 T/CUMM (130-400)
[2018-05-20] MEDS ORDERED: ONDANSETRON 4 MG/2 ML VIAL IV PRN (08:38)
[2018-05-20] MEDS ORDERED: ONDANSETRON 4 MG/2 ML VIAL ONE (08:39)
[2018-05-20] MEDS: INSULIN REGULAR 100 UNIT/ML SUBCUT SCH ×4 (08:58→21:52)
[2018-05-20] MEDS: POLYCARBOPHIL 625 MG TABLET PO SCH (09:21)
[2018-05-20] MEDS: CLOPIDOGREL 75 MG TABLET PO SCH (09:21)
[2018-05-20] MEDS: POLYETHYLENE GLYCOL POWDER 17 GM PACK PO SCH ×3 (09:22→21:52)
[2018-05-20] MEDS: ENOXAPARIN 30 MG/0.3 ML SYRINGE SUBCUT SCH (09:22)
[2018-05-20] MEDS: PANTOPRAZOLE 40 MG VIAL IV SCH (09:22)
[2018-05-20] MEDS ORDERED: ALBUTEROL/IPRATROPIUM 3 ML NEB RESP TX ONE (12:06)
[2018-05-20] MEDS: NOREPINEPHRINE 8 MG in SODIUM CHLORIDE 0.9% 242 ML IV PRN ×2 (12:40→21:56)
[2018-05-20] MEDS ORDERED: SODIUM CHLORIDE 0.9% 500 ML IV ONE (14:45)
[2018-05-20] MEDS: MIDODRINE 5 MG TABLET PO SCH ×2 (14:55→21:52)
[2018-05-20] MEDS: ALBUTEROL/IPRATROPIUM 3 ML NEB RESP TX SCH ×3 (16:17→23:59)
[2018-05-20] MEDS: FLUTICASONE 50 MCG NASAL SPRAY 16 GM BOTTLE BOTH NARES SCH (21:52)
[2018-05-21] MEDS: PIPERACILLIN/TAZOBACTAM 3,375 MG in SODIUM CHLORIDE 0.9% 100 ML IV SCH ×2 (03:42→17:32)
[2018-05-21] MEDS: ALBUTEROL/IPRATROPIUM 3 ML NEB RESP TX SCH ×6 (04:00→23:01)
[2018-05-21 04:50] LABS: ABG Base Excess -3.7 MMOL/L (-2.5-2.5); ABG HCO3 22.2 MMOL/L (20-26); ABG Oxygen Saturation 94.5 % (95-100); ABG PCO2 43.5 MM HG (35-48); ABG PH 7.326 (7.35-7.45); ABG PO2 84.6 MM HG (80-95); ABG TCO2 23.5 MMOL/L (23-27); Allen Test Positive
[2018-05-21] MEDS: NOREPINEPHRINE 8 MG in SODIUM CHLORIDE 0.9% 242 ML IV PRN (05:33)
[2018-05-21 05:44] LABS: Basophils # 0.1 10*3/uL (0.0-0.2); Basophils % 0.7 % (0.0-0.8); Eosinophils # 0.2 10*3/uL (0.0-0.87); Eosinophils % 2.6 % (0.00-10.9); Hematocrit 31.6 VOL% (42.0-52.0); Hemoglobin 10.4 GM/DL (14.0-18.0); Immature Granulocytes % 1.5 %; Immature Granulocytes Absolute 0.14 #; Lymphocytes # 1.1 10*3/uL (1.4-4.0); Lymphocytes % 11.9 % (21.2-54.2); Mean Corpuscular HGB Conc 32.9 GM/DL (32-36); Mean Corpuscular Hemoglobin 32 PG (27-34); Mean Corpuscular Volume 98.1 FL (87-102); Monocytes % 10.6 % (1.7-12.7); NRBC # 0.02 10*3/uL; Neutrophils # 6.7 10*3/uL (1.4-7.4); Neutrophils % 72.7 % (38.7-73.9); Platelet Count 221 T/CUMM (130-400); Red Blood Count 3.22 MC/CUMM (3.8-5.5); Red Cell Distribution Width 15.1 % (9.3-17.3); White Blood Count 9.2 T/CUMM (4-12)
[2018-05-21 06:08] LABS: Albumin 2.4 G/DL (3.4-5.0); Bilirubin,Total 0.7 MG/DL (0.2-1.0); Calcium 8.1 MG/DL (8.5-10.1); Osmolality,Calculated 287.2 MOS/KG (273-304); Total Protein 6.6 G/DL (6.4-8.3)
[2018-05-21] MEDS: INSULIN REGULAR 100 UNIT/ML SUBCUT SCH ×4 (08:50→21:13)
[2018-05-21] MEDS: POLYCARBOPHIL 625 MG TABLET PO SCH (09:00)
[2018-05-21] MEDS: MIDODRINE 5 MG TABLET PO SCH ×3 (09:00→21:13)
[2018-05-21] MEDS: CLOPIDOGREL 75 MG TABLET PO SCH (09:00)
[2018-05-21] MEDS: ENOXAPARIN 30 MG/0.3 ML SYRINGE SUBCUT SCH (09:00)
[2018-05-21] MEDS: PANTOPRAZOLE 40 MG VIAL IV SCH (09:01)
[2018-05-21] MEDS: POLYETHYLENE GLYCOL POWDER 17 GM PACK PO SCH ×2 (09:01→17:29)
[2018-05-21] MEDS ORDERED: DIGOXIN 0.5 MG/2 ML AMP IV ONE (11:00)
[2018-05-21] MEDS: DILTIAZEM CD 180 MG CAPSULE PO SCH (14:53)
[2018-05-21] MEDS: FLUTICASONE 50 MCG NASAL SPRAY 16 GM BOTTLE BOTH NARES SCH (21:13)
[2018-05-22] MEDS: ALBUTEROL/IPRATROPIUM 3 ML NEB RESP TX SCH ×6 (03:15→23:40)
[2018-05-22] MEDS: PIPERACILLIN/TAZOBACTAM 3,375 MG in SODIUM CHLORIDE 0.9% 100 ML IV SCH ×2 (03:40→16:13)
[2018-05-22 03:47] LABS: Basophils # 0.1 10*3/uL (0.0-0.2); Basophils % 0.6 % (0.0-0.8); Eosinophils # 0.2 10*3/uL (0.0-0.87); Eosinophils % 2.5 % (0.00-10.9); Hematocrit 29.7 VOL% (42.0-52.0); Hemoglobin 9.5 GM/DL (14.0-18.0); Immature Granulocytes % 1.9 %; Immature Granulocytes Absolute 0.16 #; Lymphocytes # 0.6 10*3/uL (1.4-4.0); Lymphocytes % 7.5 % (21.2-54.2); Mean Corpuscular Hemoglobin 32 PG (27-34); Mean Corpuscular Volume 100.3 FL (87-102); Mean Platelet Volume 10.7 FL (9.6-12.0); Monocytes # 0.8 10*3/uL (0.11-0.8); Monocytes % 9.3 % (1.7-12.7); NRBC # 0.03 10*3/uL; Neutrophils # 6.5 10*3/uL (1.4-7.4); Neutrophils % 78.2 % (38.7-73.9); Platelet Count 196 T/CUMM (130-400); Red Blood Count 2.96 MC/CUMM (3.8-5.5); Red Cell Distribution Width 15.3 % (9.3-17.3); White Blood Count 8.4 T/CUMM (4-12)
[2018-05-22 04:10] LABS: Calcium 7.8 MG/DL (8.5-10.1); Osmolality,Calculated 291.4 MOS/KG (273-304); Potassium 4.7 MMOL/L (3.5-5.1)
[2018-05-22] MEDS: MORPHINE 4 MG/1 ML VIAL IV PRN (07:26)
[2018-05-22] MEDS: INSULIN REGULAR 100 UNIT/ML SUBCUT SCH ×4 (07:37→20:45)
[2018-05-22] MEDS: MIDODRINE 5 MG TABLET PO SCH ×3 (08:46→20:45)
[2018-05-22] MEDS: CLOPIDOGREL 75 MG TABLET PO SCH (08:47)
[2018-05-22] MEDS: POLYCARBOPHIL 625 MG TABLET PO SCH (08:47)
[2018-05-22] MEDS: DILTIAZEM CD 180 MG CAPSULE PO SCH (08:47)
[2018-05-22] MEDS: POLYETHYLENE GLYCOL POWDER 17 GM PACK PO SCH (08:48)
[2018-05-22] MEDS: ENOXAPARIN 30 MG/0.3 ML SYRINGE SUBCUT SCH (08:48)
[2018-05-22] MEDS: PANTOPRAZOLE 40 MG VIAL IV SCH (08:49)
[2018-05-22] MEDS: FLUTICASONE 50 MCG NASAL SPRAY 16 GM BOTTLE BOTH NARES SCH (20:45)
[2018-05-23 03:50] LABS: Basophils # 0.1 10*3/uL (0.0-0.2); Basophils % 0.8 % (0.0-0.8); Eosinophils # 0.4 10*3/uL (0.0-0.87); Eosinophils % 3.5 % (0.00-10.9); Hematocrit 29.3 VOL% (42.0-52.0); Hemoglobin 9.2 GM/DL (14.0-18.0); Immature Granulocytes % 3.8 %; Immature Granulocytes Absolute 0.39 #; Lymphocytes # 0.9 10*3/uL (1.4-4.0); Mean Corpuscular HGB Conc 31.4 GM/DL (32-36); Mean Corpuscular Hemoglobin 33 PG (27-34); Mean Corpuscular Volume 103.5 FL (87-102); Mean Platelet Volume 10.9 FL (9.6-12.0); Monocytes # 0.8 10*3/uL (0.11-0.8); Monocytes % 7.5 % (1.7-12.7); NRBC # 0.02 10*3/uL; Neutrophils # 7.8 10*3/uL (1.4-7.4); Neutrophils % 75.4 % (38.7-73.9); Platelet Count 197 T/CUMM (130-400); Red Blood Count 2.83 MC/CUMM (3.8-5.5); White Blood Count 10.3 T/CUMM (4-12)
[2018-05-23] MEDS: ALBUTEROL/IPRATROPIUM 3 ML NEB RESP TX SCH ×3 (03:58→14:07)
[2018-05-23] MEDS: PIPERACILLIN/TAZOBACTAM 3,375 MG in SODIUM CHLORIDE 0.9% 100 ML IV SCH (04:25)
[2018-05-23] MEDS: INSULIN REGULAR 100 UNIT/ML SUBCUT SCH ×2 (10:38→12:46)
[2018-05-23 12:45] VITALS: BP 95/47
[2018-05-23] MEDS: POLYETHYLENE GLYCOL POWDER 17 GM PACK PO SCH (12:45)
[2018-05-23] MEDS: MIDODRINE 5 MG TABLET PO SCH ×2 (12:46→13:11)
[2018-05-23] MEDS: ENOXAPARIN 30 MG/0.3 ML SYRINGE SUBCUT SCH (13:10)
[2018-05-23] MEDS: PANTOPRAZOLE 40 MG VIAL IV SCH (13:10)
[2018-05-23] MEDS: POLYCARBOPHIL 625 MG TABLET PO SCH (13:11)
[2018-05-23] MEDS: DILTIAZEM CD 180 MG CAPSULE PO SCH (13:11)
[2018-05-23] MEDS: CLOPIDOGREL 75 MG TABLET PO SCH (13:11)
== END 2018-05-23 15:36 | disposition home or self-care (01) | DRG 388 ==
LOC: N.ED 17:52 → N.EDINP 05-19 00:03 → SUATTDRO 05-19 00:03 → N.2E 05-19 01:07 → N.ICU 05-19 03:13 → N.TELEN 05-22 15:27
PROVIDERS: ADMIT Internal Medicine; ATTEND Internal Medicine Geriatric Medicine

== ENCOUNTER 2018-06-01 08:53 | Inpatient (IN) ==
[2018-06-01 10:14] LABS: Basophils # 0.1 10*3/uL (0.0-0.2); Basophils % 0.6 % (0.0-0.8); Eosinophils # 0.2 10*3/uL (0.0-0.87); Eosinophils % 1.2 % (0.00-10.9); Hematocrit 29.7 VOL% (42.0-52.0); Hemoglobin 9.9 GM/DL (14.0-18.0); Immature Granulocytes % 2.1 %; Immature Granulocytes Absolute 0.27 #; Lymphocytes # 1.3 10*3/uL (1.4-4.0); Lymphocytes % 9.9 % (21.2-54.2); Mean Corpuscular HGB Conc 33.3 GM/DL (32-36); Mean Corpuscular Hemoglobin 32 PG (27-34); Mean Corpuscular Volume 96.1 FL (87-102); Mean Platelet Volume 10.2 FL (9.6-12.0); Monocytes # 1.3 10*3/uL (0.11-0.8); Monocytes % 10.3 % (1.7-12.7); Neutrophils # 9.6 10*3/uL (1.4-7.4); Neutrophils % 75.9 % (38.7-73.9); Platelet Count 436 T/CUMM (130-400); Red Blood Count 3.09 MC/CUMM (3.8-5.5); White Blood Count 12.6 T/CUMM (4-12)
[2018-06-01 10:38] LABS: Albumin 2.8 G/DL (3.4-5.0); Bilirubin,Total 0.4 MG/DL (0.2-1.0); Calcium 8.2 MG/DL (8.5-10.1); Osmolality,Calculated 275.4 MOS/KG (273-304); Potassium 5.2 MMOL/L (3.5-5.1); Total Protein 6.8 G/DL (6.4-8.3)
[2018-06-01 10:43] LABS: PT Patient Result 10.6 SECS
[2018-06-02 05:55] LABS: Basophils # 0.1 10*3/uL (0.0-0.2); Basophils % 0.7 % (0.0-0.8); Eosinophils # 0.2 10*3/uL (0.0-0.87); Eosinophils % 1.6 % (0.00-10.9); Hemoglobin 9.5 GM/DL (14.0-18.0); Immature Granulocytes % 2.3 %; Immature Granulocytes Absolute 0.23 #; Lymphocytes % 9.8 % (21.2-54.2); Mean Corpuscular HGB Conc 32.8 GM/DL (32-36); Mean Corpuscular Hemoglobin 32 PG (27-34); Mean Corpuscular Volume 96.3 FL (87-102); Mean Platelet Volume 10.3 FL (9.6-12.0); Monocytes # 0.9 10*3/uL (0.11-0.8); Monocytes % 8.9 % (1.7-12.7); Neutrophils # 7.9 10*3/uL (1.4-7.4); Neutrophils % 76.7 % (38.7-73.9); Platelet Count 373 T/CUMM (130-400); Red Blood Count 3.01 MC/CUMM (3.8-5.5); Red Cell Distribution Width 14.7 % (9.3-17.3); White Blood Count 10.2 T/CUMM (4-12)
[2018-06-02 06:15] LABS: Calcium 8.4 MG/DL (8.5-10.1); Osmolality,Calculated 277.4 MOS/KG (273-304); Potassium 4.5 MMOL/L (3.5-5.1)
[2018-06-02 19:38] LABS: Hepatitis A Ab IgM Result Negative (Negative); Hepatitis B Core IgM Quant 0.16 Index; Hepatitis B Core IgM Result Negative (Negative); Hepatitis B Surface Ag Quant < 0.10 Index; Hepatitis B Surface Ag Result Negative (Negative); Hepatitis C Virus Ab Result Negative (Negative)
[2018-06-03 03:35] LABS: Basophils # 0.1 10*3/uL (0.0-0.2); Basophils % 0.6 % (0.0-0.8); Eosinophils # 0.1 10*3/uL (0.0-0.87); Eosinophils % 1.7 % (0.00-10.9); Hematocrit 29.8 VOL% (42.0-52.0); Hemoglobin 9.6 GM/DL (14.0-18.0); Immature Granulocytes % 1.3 %; Immature Granulocytes Absolute 0.11 #; Lymphocytes # 0.8 10*3/uL (1.4-4.0); Lymphocytes % 9.9 % (21.2-54.2); Mean Corpuscular HGB Conc 32.2 GM/DL (32-36); Mean Corpuscular Hemoglobin 32 PG (27-34); Mean Corpuscular Volume 98.7 FL (87-102); Monocytes # 0.6 10*3/uL (0.11-0.8); Monocytes % 7.7 % (1.7-12.7); Neutrophils # 6.5 10*3/uL (1.4-7.4); Neutrophils % 78.8 % (38.7-73.9); Platelet Count 357 T/CUMM (130-400); Red Blood Count 3.02 MC/CUMM (3.8-5.5); Red Cell Distribution Width 15.1 % (9.3-17.3); White Blood Count 8.2 T/CUMM (4-12)
[2018-06-03 04:04] LABS: Calcium 8.7 MG/DL (8.5-10.1); Osmolality,Calculated 272.1 MOS/KG (273-304); Potassium 4.7 MMOL/L (3.5-5.1)
[2018-06-04 03:48] LABS: Basophils # 0.1 10*3/uL (0.0-0.2); Basophils % 0.9 % (0.0-0.8); Eosinophils # 0.2 10*3/uL (0.0-0.87); Eosinophils % 2.5 % (0.00-10.9); Hematocrit 26.9 VOL% (42.0-52.0); Hemoglobin 8.9 GM/DL (14.0-18.0); Immature Granulocytes % 1.6 %; Immature Granulocytes Absolute 0.13 #; Lymphocytes % 12.1 % (21.2-54.2); Mean Corpuscular HGB Conc 33.1 GM/DL (32-36); Mean Corpuscular Hemoglobin 32 PG (27-34); Mean Corpuscular Volume 96.4 FL (87-102); Mean Platelet Volume 9.9 FL (9.6-12.0); Monocytes # 0.9 10*3/uL (0.11-0.8); Monocytes % 11.3 % (1.7-12.7); Neutrophils # 5.8 10*3/uL (1.4-7.4); Neutrophils % 71.6 % (38.7-73.9); Platelet Count 330 T/CUMM (130-400); Red Blood Count 2.79 MC/CUMM (3.8-5.5); Red Cell Distribution Width 15.4 % (9.3-17.3); White Blood Count 8.1 T/CUMM (4-12)
[2018-06-04 04:07] LABS: Calcium 8.1 MG/DL (8.5-10.1); Osmolality,Calculated 279.1 MOS/KG (273-304); Potassium 4.8 MMOL/L (3.5-5.1)
[2018-06-05 06:22] LABS: Basophils # 0.1 10*3/uL (0.0-0.2); Basophils % 0.9 % (0.0-0.8); Eosinophils # 0.2 10*3/uL (0.0-0.87); Hematocrit 27.9 VOL% (42.0-52.0); Hemoglobin 8.9 GM/DL (14.0-18.0); Immature Granulocytes Absolute 0.16 #; Lymphocytes # 0.9 10*3/uL (1.4-4.0); Mean Corpuscular HGB Conc 31.9 GM/DL (32-36); Mean Corpuscular Hemoglobin 31 PG (27-34); Mean Corpuscular Volume 97.9 FL (87-102); Mean Platelet Volume 9.6 FL (9.6-12.0); Monocytes % 12.3 % (1.7-12.7); Neutrophils # 5.8 10*3/uL (1.4-7.4); Neutrophils % 71.8 % (38.7-73.9); Platelet Count 320 T/CUMM (130-400); Red Blood Count 2.85 MC/CUMM (3.8-5.5); Red Cell Distribution Width 15.6 % (9.3-17.3); White Blood Count 8.1 T/CUMM (4-12)
[2018-06-05 06:56] LABS: Calcium 9.1 MG/DL (8.5-10.1); Osmolality,Calculated 280.5 MOS/KG (273-304); Potassium 5.3 MMOL/L (3.5-5.1)
[2018-06-06 06:38] LABS: Basophils # 0.1 10*3/uL (0.0-0.2); Basophils % 0.8 % (0.0-0.8); Eosinophils # 0.2 10*3/uL (0.0-0.87); Eosinophils % 2.4 % (0.00-10.9); Hematocrit 26.2 VOL% (42.0-52.0); Hemoglobin 8.6 GM/DL (14.0-18.0); Immature Granulocytes % 1.7 %; Immature Granulocytes Absolute 0.14 #; Lymphocytes # 0.7 10*3/uL (1.4-4.0); Lymphocytes % 8.4 % (21.2-54.2); Mean Corpuscular HGB Conc 32.8 GM/DL (32-36); Mean Corpuscular Hemoglobin 32 PG (27-34); Mean Corpuscular Volume 98.1 FL (87-102); Mean Platelet Volume 10.3 FL (9.6-12.0); Monocytes # 0.9 10*3/uL (0.11-0.8); Monocytes % 11.1 % (1.7-12.7); Neutrophils # 6.4 10*3/uL (1.4-7.4); Neutrophils % 75.6 % (38.7-73.9); Platelet Count 294 T/CUMM (130-400); Red Blood Count 2.67 MC/CUMM (3.8-5.5); Red Cell Distribution Width 15.8 % (9.3-17.3); White Blood Count 8.5 T/CUMM (4-12)
[2018-06-06 07:05] LABS: Calcium 8.7 MG/DL (8.5-10.1); Osmolality,Calculated 286.7 MOS/KG (273-304); Potassium 5.1 MMOL/L (3.5-5.1)
[2018-06-06 18:12] LABS: Hematocrit 29.3 VOL% (42.0-52.0)
[2018-06-08 06:34] LABS: Basophils # 0.1 10*3/uL (0.0-0.2); Basophils % 0.6 % (0.0-0.8); Eosinophils # 0.2 10*3/uL (0.0-0.87); Eosinophils % 2.1 % (0.00-10.9); Hematocrit 24.9 VOL% (42.0-52.0); Hemoglobin 8.3 GM/DL (14.0-18.0); Immature Granulocytes % 1.6 %; Immature Granulocytes Absolute 0.16 #; Lymphocytes # 0.9 10*3/uL (1.4-4.0); Lymphocytes % 9.3 % (21.2-54.2); Mean Corpuscular HGB Conc 33.3 GM/DL (32-36); Mean Corpuscular Hemoglobin 33 PG (27-34); Mean Corpuscular Volume 99.2 FL (87-102); Mean Platelet Volume 10.1 FL (9.6-12.0); Monocytes % 10.5 % (1.7-12.7); Neutrophils # 7.5 10*3/uL (1.4-7.4); Neutrophils % 75.9 % (38.7-73.9); Platelet Count 286 T/CUMM (130-400); Red Blood Count 2.51 MC/CUMM (3.8-5.5); Red Cell Distribution Width 15.8 % (9.3-17.3); White Blood Count 9.9 T/CUMM (4-12)
[2018-06-08 06:54] LABS: Calcium 8.9 MG/DL (8.5-10.1); Osmolality,Calculated 287.5 MOS/KG (273-304); Potassium 5.1 MMOL/L (3.5-5.1)
[2018-06-08 07:12] LABS: Calcium 8.4 MG/DL (8.5-10.1); Osmolality,Calculated 288.5 MOS/KG (273-304); Potassium 5.3 MMOL/L (3.5-5.1)
[2018-06-09 13:42] VITALS: BP 107/76
== END 2018-06-09 15:45 | disposition home or self-care (01) | DRG 314 ==
LOC: N.ED 08:53 → N.EDINP 12:15 → SUATTDRO 12:15 → N.ICU 12:36 → N.5E 06-04 13:12
PROVIDERS: ADMIT Internal Medicine Infectious Disease; ATTEND Emergency Medicine

== ENCOUNTER 2018-06-11 10:17 | Inpatient (IN) ==
[2018-06-11 11:02] LABS: Basophils # 0.1 10*3/uL (0.0-0.2); Basophils % 0.6 % (0.0-0.8); Eosinophils # 0.2 10*3/uL (0.0-0.87); Eosinophils % 1.1 % (0.00-10.9); Hematocrit 23.9 VOL% (42.0-52.0); Hemoglobin 7.6 GM/DL (14.0-18.0); Immature Granulocytes % 3.7 %; Immature Granulocytes Absolute 0.49 #; Lymphocytes # 0.8 10*3/uL (1.4-4.0); Mean Corpuscular HGB Conc 31.8 GM/DL (32-36); Mean Corpuscular Hemoglobin 32 PG (27-34); Monocytes # 1.2 10*3/uL (0.11-0.8); Monocytes % 9.2 % (1.7-12.7); Neutrophils # 10.6 10*3/uL (1.4-7.4); Neutrophils % 79.4 % (38.7-73.9); Platelet Count 294 T/CUMM (130-400); Red Blood Count 2.39 MC/CUMM (3.8-5.5); Red Cell Distribution Width 15.9 % (9.3-17.3); White Blood Count 13.4 T/CUMM (4-12)
[2018-06-11 11:09] LABS: PT Patient Result 10.9 SECS
[2018-06-11 11:37] LABS: Alanine Aminotransferase < 9 U/L (16-61); Albumin 2.3 G/DL (3.4-5.0); Alkaline Phosphatase 222 U/L (45-117); Aspartate Amino Transferase 11 U/L (0-37); Bilirubin,Total < 0.39 MG/DL (0.2-1.0); Blood Urea Nitrogen 38 MG/DL (7-18); Calcium 8.5 MG/DL (8.5-10.1); Glucose 150 MG/DL (74-106); Osmolality,Calculated 284.8 MOS/KG (273-304); Potassium 4.7 MMOL/L (3.5-5.1); Sodium 137 MMOL/L (136-145); Total Protein 6.7 G/DL (6.4-8.3); Troponin I Only < 0.015 NG/ML (0.00-0.045)
[2018-06-11] MEDS ORDERED: ONDANSETRON 4 MG/2 ML VIAL IV PRN (12:42)
[2018-06-11] MEDS ORDERED: PROMETHAZINE 25 MG/1 ML VIAL IM PRN (12:42)
[2018-06-11] MEDS ORDERED: ACETAMINOPHEN 325 MG TABLET PO PRN (12:42)
[2018-06-11] MEDS ORDERED: SENNA 8.6 MG TABLET PO PRN (12:45)
[2018-06-11] MEDS ORDERED: GLUCAGON 1 MG VIAL IM PRN (14:05)
[2018-06-11] MEDS ORDERED: DEXTROSE 50% 25 GM/50 ML VIAL IV PRN (14:05)
[2018-06-11] MEDS: MIDODRINE 5 MG TABLET PO SCH ×2 (16:06→21:30)
[2018-06-11] MEDS: INSULIN LISPRO 100 UNIT/ML SUBCUT SCH ×4 (16:06→21:31)
[2018-06-11] MEDS: SEVELAMER CARBONATE 800 MG TABLET PO SCH (16:46)
[2018-06-11] MEDS: FERROUS SULFATE 325 MG TABLET PO SCH (21:30)
[2018-06-11] MEDS: GABAPENTIN 600 MG TABLET PO SCH (21:30)
[2018-06-11] MEDS: INSULIN GLARGINE 100 UNIT/ML SUBCUT SCH (21:30)
[2018-06-11] MEDS: ATORVASTATIN 40 MG TABLET PO SCH (21:30)
[2018-06-11] MEDS: CHOLESTYRAMINE 4 GM PACK PO SCH (21:31)
[2018-06-11] MEDS: FLUTICASONE 50 MCG NASAL SPRAY 16 GM BOTTLE BOTH NARES SCH (21:36)
[2018-06-12 05:30] LABS: Basophils # 0.1 10*3/uL (0.0-0.2); Basophils % 0.7 % (0.0-0.8); Eosinophils # 0.2 10*3/uL (0.0-0.87); Eosinophils % 1.6 % (0.00-10.9); Hematocrit 25.7 VOL% (42.0-52.0); Hemoglobin 8.1 GM/DL (14.0-18.0); Immature Granulocytes % 2.6 %; Immature Granulocytes Absolute 0.28 #; Lymphocytes # 0.9 10*3/uL (1.4-4.0); Lymphocytes % 8.7 % (21.2-54.2); Mean Corpuscular HGB Conc 31.5 GM/DL (32-36); Mean Corpuscular Hemoglobin 31 PG (27-34); Mean Corpuscular Volume 99.6 FL (87-102); Mean Platelet Volume 10.3 FL (9.6-12.0); Monocytes # 0.9 10*3/uL (0.11-0.8); Monocytes % 8.5 % (1.7-12.7); Neutrophils # 8.4 10*3/uL (1.4-7.4); Neutrophils % 77.9 % (38.7-73.9); Platelet Count 275 T/CUMM (130-400); Red Blood Count 2.58 MC/CUMM (3.8-5.5); Red Cell Distribution Width 15.9 % (9.3-17.3); White Blood Count 10.8 T/CUMM (4-12)
[2018-06-12 06:10] LABS: Alanine Aminotransferase < 9 U/L (16-61); Albumin 2.4 G/DL (3.4-5.0); Alkaline Phosphatase 230 U/L (45-117); Aspartate Amino Transferase 10 U/L (0-37); Blood Urea Nitrogen 47 MG/DL (7-18); Calcium 8.6 MG/DL (8.5-10.1); Glucose 130 MG/DL (74-106); Osmolality,Calculated 288.7 MOS/KG (273-304); Potassium 5.1 MMOL/L (3.5-5.1); Sodium 138 MMOL/L (136-145); Total Protein 6.8 G/DL (6.4-8.3)
[2018-06-12] MEDS: CYANOCOBALAMIN 500 MCG TABLET PO SCH (08:30)
[2018-06-12] MEDS: PANTOPRAZOLE 40 MG TABLET PO SCH (08:31)
[2018-06-12] MEDS: SEVELAMER CARBONATE 800 MG TABLET PO SCH ×3 (08:31→16:28)
[2018-06-12] MEDS: CALCITRIOL 0.25 MCG CAPSULE PO SCH (08:31)
[2018-06-12] MEDS: POLYCARBOPHIL 625 MG TABLET PO SCH (08:31)
[2018-06-12] MEDS: MIDODRINE 5 MG TABLET PO SCH ×3 (08:31→21:26)
[2018-06-12] MEDS: INSULIN LISPRO 100 UNIT/ML SUBCUT SCH ×7 (08:32→21:23)
[2018-06-12] MEDS: FERROUS SULFATE 325 MG TABLET PO SCH ×2 (08:32→21:23)
[2018-06-12] MEDS ORDERED: PANTOPRAZOLE 40 MG TABLET PO SCH (09:00)
[2018-06-12] MEDS ORDERED: DILTIAZEM CD 180 MG CAPSULE PO SCH (09:00)
[2018-06-12] MEDS ORDERED: NON-FORMULARY MEDICATION (Omeprazole [Omeprazole] 40 MG) PO SCH (09:00)
[2018-06-12] MEDS ORDERED: CLOPIDOGREL 75 MG TABLET PO SCH (09:00)
[2018-06-12] MEDS: CHOLESTYRAMINE 4 GM PACK PO SCH ×2 (09:12→21:27)
[2018-06-12] MEDS: ALLOPURINOL 300 MG TABLET PO SCH (09:18)
[2018-06-12] MEDS ORDERED: HEPARIN 10,000 UNIT/10 ML VIAL IV PRN (11:38)
[2018-06-12] MEDS: INSULIN GLARGINE 100 UNIT/ML SUBCUT SCH (21:22)
[2018-06-12] MEDS: GABAPENTIN 600 MG TABLET PO SCH (21:23)
[2018-06-12] MEDS: ATORVASTATIN 40 MG TABLET PO SCH (21:24)
[2018-06-12] MEDS: FLUTICASONE 50 MCG NASAL SPRAY 16 GM BOTTLE BOTH NARES SCH (22:01)
[2018-06-13 04:09] LABS: Basophils # 0.1 10*3/uL (0.0-0.2); Basophils % 0.9 % (0.0-0.8); Eosinophils # 0.2 10*3/uL (0.0-0.87); Eosinophils % 1.7 % (0.00-10.9); Hematocrit 26.7 VOL% (42.0-52.0); Hemoglobin 8.6 GM/DL (14.0-18.0); Immature Granulocytes % 4.1 %; Immature Granulocytes Absolute 0.43 #; Lymphocytes # 1.1 10*3/uL (1.4-4.0); Lymphocytes % 10.6 % (21.2-54.2); Mean Corpuscular HGB Conc 32.2 GM/DL (32-36); Mean Corpuscular Hemoglobin 32 PG (27-34); Mean Corpuscular Volume 98.5 FL (87-102); Mean Platelet Volume 10.1 FL (9.6-12.0); Monocytes # 1.2 10*3/uL (0.11-0.8); Monocytes % 11.2 % (1.7-12.7); NRBC # 0.03 10*3/uL; Neutrophils # 7.5 10*3/uL (1.4-7.4); Neutrophils % 71.5 % (38.7-73.9); Platelet Count 328 T/CUMM (130-400); Red Blood Count 2.71 MC/CUMM (3.8-5.5); Red Cell Distribution Width 15.7 % (9.3-17.3); White Blood Count 10.4 T/CUMM (4-12)
[2018-06-13 04:36] LABS: Albumin 2.2 G/DL (3.4-5.0); Bilirubin,Total 0.6 MG/DL (0.2-1.0); Calcium 8.8 MG/DL (8.5-10.1); Osmolality,Calculated 281.7 MOS/KG (273-304); Potassium 4.3 MMOL/L (3.5-5.1); Total Protein 6.7 G/DL (6.4-8.3)
[2018-06-13] MEDS: SEVELAMER CARBONATE 800 MG TABLET PO SCH ×3 (09:12→17:11)
[2018-06-13] MEDS: CYANOCOBALAMIN 500 MCG TABLET PO SCH (09:12)
[2018-06-13] MEDS: POLYCARBOPHIL 625 MG TABLET PO SCH (09:12)
[2018-06-13] MEDS: ALLOPURINOL 300 MG TABLET PO SCH (09:13)
[2018-06-13] MEDS: PANTOPRAZOLE 40 MG TABLET PO SCH (09:13)
[2018-06-13] MEDS: FERROUS SULFATE 325 MG TABLET PO SCH ×2 (09:13→21:33)
[2018-06-13] MEDS: INSULIN LISPRO 100 UNIT/ML SUBCUT SCH ×7 (09:14→21:36)
[2018-06-13] MEDS: MIDODRINE 5 MG TABLET PO SCH ×3 (09:17→21:32)
[2018-06-13] MEDS: CHOLESTYRAMINE 4 GM PACK PO SCH ×2 (09:17→21:32)
[2018-06-13] MEDS: METOPROLOL SUCCINATE XL 50 MG TABLET PO SCH (11:32)
[2018-06-13] MEDS: GABAPENTIN 600 MG TABLET PO SCH (21:32)
[2018-06-13] MEDS: ATORVASTATIN 40 MG TABLET PO SCH (21:32)
[2018-06-13] MEDS: INSULIN GLARGINE 100 UNIT/ML SUBCUT SCH (21:36)
[2018-06-13] MEDS: FLUTICASONE 50 MCG NASAL SPRAY 16 GM BOTTLE BOTH NARES SCH (22:49)
[2018-06-14 04:55] LABS: Basophils # 0.1 10*3/uL (0.0-0.2); Basophils % 0.8 % (0.0-0.8); Eosinophils # 0.3 10*3/uL (0.0-0.87); Eosinophils % 2.2 % (0.00-10.9); Hematocrit 26.7 VOL% (42.0-52.0); Hemoglobin 8.8 GM/DL (14.0-18.0); Immature Granulocytes % 2.1 %; Immature Granulocytes Absolute 0.25 #; Lymphocytes # 1.3 10*3/uL (1.4-4.0); Lymphocytes % 10.9 % (21.2-54.2); Mean Corpuscular Hemoglobin 32 PG (27-34); Mean Corpuscular Volume 96.7 FL (87-102); Mean Platelet Volume 10.4 FL (9.6-12.0); Monocytes % 8.2 % (1.7-12.7); NRBC # 0.04 10*3/uL; Neutrophils # 9.1 10*3/uL (1.4-7.4); Neutrophils % 75.8 % (38.7-73.9); Platelet Count 386 T/CUMM (130-400); Red Blood Count 2.76 MC/CUMM (3.8-5.5); Red Cell Distribution Width 15.9 % (9.3-17.3)
[2018-06-14 05:22] LABS: Calcium 8.4 MG/DL (8.5-10.1); Osmolality,Calculated 291.7 MOS/KG (273-304); Potassium 4.6 MMOL/L (3.5-5.1)
[2018-06-14 05:25] LABS: Alanine Aminotransferase < 9 U/L (16-61); Albumin 2.2 G/DL (3.4-5.0); Alkaline Phosphatase 243 U/L (45-117); Aspartate Amino Transferase 11 U/L (0-37); Blood Urea Nitrogen 50 MG/DL (7-18); Calcium 8.9 MG/DL (8.5-10.1); Glucose 155 MG/DL (74-106); Osmolality,Calculated 290.7 MOS/KG (273-304); Potassium 4.6 MMOL/L (3.5-5.1); Sodium 138 MMOL/L (136-145); Total Protein 6.8 G/DL (6.4-8.3)
[2018-06-14] MEDS: POLYCARBOPHIL 625 MG TABLET PO SCH (08:30)
[2018-06-14] MEDS: MIDODRINE 5 MG TABLET PO SCH ×3 (08:30→21:21)
[2018-06-14] MEDS: CHOLESTYRAMINE 4 GM PACK PO SCH ×2 (08:30→21:21)
[2018-06-14] MEDS: INSULIN LISPRO 100 UNIT/ML SUBCUT SCH ×7 (08:30→21:10)
[2018-06-14] MEDS: CYANOCOBALAMIN 500 MCG TABLET PO SCH (08:31)
[2018-06-14] MEDS: SEVELAMER CARBONATE 800 MG TABLET PO SCH ×3 (08:31→16:20)
[2018-06-14] MEDS: ASPIRIN CHEW 81 MG TABLET PO SCH (08:31)
[2018-06-14] MEDS: ALLOPURINOL 300 MG TABLET PO SCH (08:31)
[2018-06-14] MEDS: FERROUS SULFATE 325 MG TABLET PO SCH ×2 (08:31→21:21)
[2018-06-14] MEDS: METOPROLOL SUCCINATE XL 50 MG TABLET PO SCH (08:31)
[2018-06-14] MEDS: PANTOPRAZOLE 40 MG TABLET PO SCH (08:31)
[2018-06-14] MEDS: INSULIN GLARGINE 100 UNIT/ML SUBCUT SCH (21:10)
[2018-06-14] MEDS: GABAPENTIN 600 MG TABLET PO SCH (21:21)
[2018-06-14] MEDS: FLUTICASONE 50 MCG NASAL SPRAY 16 GM BOTTLE BOTH NARES SCH (21:22)
[2018-06-14] MEDS: ATORVASTATIN 40 MG TABLET PO SCH (21:22)
[2018-06-15 04:33] LABS: Basophils # 0.1 10*3/uL (0.0-0.2); Basophils % 0.6 % (0.0-0.8); Eosinophils # 0.3 10*3/uL (0.0-0.87); Eosinophils % 2.1 % (0.00-10.9); Hematocrit 27.3 VOL% (42.0-52.0); Hemoglobin 9.1 GM/DL (14.0-18.0); Immature Granulocytes % 1.4 %; Immature Granulocytes Absolute 0.18 #; Lymphocytes # 1.2 10*3/uL (1.4-4.0); Lymphocytes % 9.8 % (21.2-54.2); Mean Corpuscular HGB Conc 33.3 GM/DL (32-36); Mean Corpuscular Hemoglobin 32 PG (27-34); Mean Corpuscular Volume 96.1 FL (87-102); Mean Platelet Volume 10.6 FL (9.6-12.0); Monocytes # 0.9 10*3/uL (0.11-0.8); Monocytes % 7.1 % (1.7-12.7); Platelet Count 284 T/CUMM (130-400); Red Blood Count 2.84 MC/CUMM (3.8-5.5); White Blood Count 12.7 T/CUMM (4-12)
[2018-06-15 04:42] LABS: Calcium 8.6 MG/DL (8.5-10.1); Osmolality,Calculated 287.2 MOS/KG (273-304); Potassium 5.3 MMOL/L (3.5-5.1)
[2018-06-15] MEDS: INSULIN LISPRO 100 UNIT/ML SUBCUT SCH ×7 (07:28→21:18)
[2018-06-15] MEDS: MIDODRINE 5 MG TABLET PO SCH ×3 (08:35→22:18)
[2018-06-15] MEDS: CYANOCOBALAMIN 500 MCG TABLET PO SCH (08:35)
[2018-06-15] MEDS: POLYCARBOPHIL 625 MG TABLET PO SCH (08:35)
[2018-06-15] MEDS: PANTOPRAZOLE 40 MG TABLET PO SCH (08:36)
[2018-06-15] MEDS: ASPIRIN CHEW 81 MG TABLET PO SCH (08:36)
[2018-06-15] MEDS: METOPROLOL SUCCINATE XL 50 MG TABLET PO SCH (08:36)
[2018-06-15] MEDS: SEVELAMER CARBONATE 800 MG TABLET PO SCH ×3 (08:36→17:54)
[2018-06-15] MEDS: CALCITRIOL 0.25 MCG CAPSULE PO SCH (08:36)
[2018-06-15] MEDS: FERROUS SULFATE 325 MG TABLET PO SCH ×2 (08:36→21:16)
[2018-06-15] MEDS: CHOLESTYRAMINE 4 GM PACK PO SCH ×2 (08:36→22:18)
[2018-06-15] MEDS: ALLOPURINOL 300 MG TABLET PO SCH (08:36)
[2018-06-15] MEDS: NYSTATIN CREAM 15 GM TUBE TOP SCH ×2 (14:19→21:19)
[2018-06-15] MEDS ORDERED: SODIUM CHLORIDE 0.9% 250 ML IV ONE (17:12)
[2018-06-15] MEDS: ATORVASTATIN 40 MG TABLET PO SCH (21:16)
[2018-06-15] MEDS: GABAPENTIN 600 MG TABLET PO SCH (21:16)
[2018-06-15] MEDS: FLUTICASONE 50 MCG NASAL SPRAY 16 GM BOTTLE BOTH NARES SCH (21:18)
[2018-06-15] MEDS: INSULIN GLARGINE 100 UNIT/ML SUBCUT SCH (21:18)
[2018-06-16 05:41] LABS: Basophils # 0.1 10*3/uL (0.0-0.2); Basophils % 0.9 % (0.0-0.8); Eosinophils # 0.2 10*3/uL (0.0-0.87); Hematocrit 26.6 VOL% (42.0-52.0); Hemoglobin 8.3 GM/DL (14.0-18.0); Immature Granulocytes % 2.2 %; Immature Granulocytes Absolute 0.17 #; Lymphocytes % 12.9 % (21.2-54.2); Mean Corpuscular HGB Conc 31.2 GM/DL (32-36); Mean Corpuscular Hemoglobin 31 PG (27-34); Mean Corpuscular Volume 100.4 FL (87-102); Mean Platelet Volume 10.2 FL (9.6-12.0); Monocytes # 0.8 10*3/uL (0.11-0.8); Monocytes % 9.8 % (1.7-12.7); NRBC # 0.02 10*3/uL; Neutrophils # 5.5 10*3/uL (1.4-7.4); Neutrophils % 71.2 % (38.7-73.9); Platelet Count 303 T/CUMM (130-400); Red Blood Count 2.65 MC/CUMM (3.8-5.5); Red Cell Distribution Width 16.5 % (9.3-17.3); White Blood Count 7.7 T/CUMM (4-12)
[2018-06-16 06:05] LABS: Osmolality,Calculated 283.7 MOS/KG (273-304); Potassium 4.7 MMOL/L (3.5-5.1)
[2018-06-16] MEDS: INSULIN LISPRO 100 UNIT/ML SUBCUT SCH ×7 (08:28→21:44)
[2018-06-16] MEDS: ALLOPURINOL 300 MG TABLET PO SCH (08:56)
[2018-06-16] MEDS: CYANOCOBALAMIN 500 MCG TABLET PO SCH (08:56)
[2018-06-16] MEDS: POLYCARBOPHIL 625 MG TABLET PO SCH (08:56)
[2018-06-16] MEDS: MIDODRINE 5 MG TABLET PO SCH ×3 (08:56→21:40)
[2018-06-16] MEDS: FERROUS SULFATE 325 MG TABLET PO SCH ×2 (08:57→21:39)
[2018-06-16] MEDS: SEVELAMER CARBONATE 800 MG TABLET PO SCH ×3 (08:57→16:41)
[2018-06-16] MEDS: METOPROLOL SUCCINATE XL 50 MG TABLET PO SCH (08:57)
[2018-06-16] MEDS: PANTOPRAZOLE 40 MG TABLET PO SCH (08:57)
[2018-06-16] MEDS: ASPIRIN CHEW 81 MG TABLET PO SCH (08:57)
[2018-06-16] MEDS: CHOLESTYRAMINE 4 GM PACK PO SCH ×2 (09:03→21:41)
[2018-06-16] MEDS: NYSTATIN CREAM 15 GM TUBE TOP SCH ×2 (09:03→21:52)
[2018-06-16] MEDS ORDERED: BISACODYL 5 MG TABLET PO ONE (12:00)
[2018-06-16] MEDS ORDERED: POLYETHYLENE GLYCOL POWDER 255 GM BOTTLE PO ONE (13:00)
[2018-06-16] MEDS ORDERED: MAGNESIUM CITRATE 300 ML BOTTLE PO ONE (21:00)
[2018-06-16] MEDS: FLUTICASONE 50 MCG NASAL SPRAY 16 GM BOTTLE BOTH NARES SCH (21:39)
[2018-06-16] MEDS: ATORVASTATIN 40 MG TABLET PO SCH (21:40)
[2018-06-16] MEDS: GABAPENTIN 600 MG TABLET PO SCH (21:41)
[2018-06-16] MEDS: INSULIN GLARGINE 100 UNIT/ML SUBCUT SCH (21:45)
[2018-06-17 04:53] LABS: Basophils # 0.1 10*3/uL (0.0-0.2); Basophils % 0.7 % (0.0-0.8); Eosinophils # 0.3 10*3/uL (0.0-0.87); Eosinophils % 2.8 % (0.00-10.9); Hematocrit 25.1 VOL% (42.0-52.0); Hemoglobin 8.1 GM/DL (14.0-18.0); Immature Granulocytes % 1.2 %; Immature Granulocytes Absolute 0.12 #; Lymphocytes # 1.2 10*3/uL (1.4-4.0); Lymphocytes % 11.8 % (21.2-54.2); Mean Corpuscular HGB Conc 32.3 GM/DL (32-36); Mean Corpuscular Hemoglobin 32 PG (27-34); Mean Platelet Volume 10.5 FL (9.6-12.0); Monocytes # 0.9 10*3/uL (0.11-0.8); Monocytes % 8.6 % (1.7-12.7); Neutrophils # 7.4 10*3/uL (1.4-7.4); Neutrophils % 74.9 % (38.7-73.9); Platelet Count 271 T/CUMM (130-400); Red Blood Count 2.56 MC/CUMM (3.8-5.5); Red Cell Distribution Width 16.1 % (9.3-17.3); White Blood Count 9.9 T/CUMM (4-12)
[2018-06-17 05:17] LABS: Calcium 8.7 MG/DL (8.5-10.1); Osmolality,Calculated 283.8 MOS/KG (273-304); Potassium 5.5 MMOL/L (3.5-5.1)
[2018-06-17] MEDS: SEVELAMER CARBONATE 800 MG TABLET PO SCH ×3 (08:33→16:09)
[2018-06-17] MEDS: INSULIN LISPRO 100 UNIT/ML SUBCUT SCH ×7 (08:33→20:53)
[2018-06-17] MEDS: MIDODRINE 5 MG TABLET PO SCH ×3 (08:34→20:51)
[2018-06-17] MEDS: FERROUS SULFATE 325 MG TABLET PO SCH ×3 (08:34→20:52)
[2018-06-17] MEDS: ASPIRIN CHEW 81 MG TABLET PO SCH ×2 (08:34→16:08)
[2018-06-17] MEDS: POLYCARBOPHIL 625 MG TABLET PO SCH ×2 (08:34→16:09)
[2018-06-17] MEDS: CALCITRIOL 0.25 MCG CAPSULE PO SCH ×2 (08:35→16:08)
[2018-06-17] MEDS: CYANOCOBALAMIN 500 MCG TABLET PO SCH ×2 (08:35→16:09)
[2018-06-17] MEDS: CHOLESTYRAMINE 4 GM PACK PO SCH ×2 (08:35→20:51)
[2018-06-17] MEDS: ALLOPURINOL 300 MG TABLET PO SCH ×2 (08:35→16:08)
[2018-06-17] MEDS: PANTOPRAZOLE 40 MG TABLET PO SCH ×2 (08:35→16:07)
[2018-06-17] MEDS: METOPROLOL SUCCINATE XL 50 MG TABLET PO SCH ×2 (08:35→16:07)
[2018-06-17] MEDS: NYSTATIN CREAM 15 GM TUBE TOP SCH ×2 (10:19→20:54)
[2018-06-17 14:13] LABS: PT Patient Result 10.7 SECS
[2018-06-17] MEDS ORDERED: MAGNESIUM CITRATE 300 ML BOTTLE PO ONE (18:00)
[2018-06-17] MEDS: ATORVASTATIN 40 MG TABLET PO SCH (20:52)
[2018-06-17] MEDS: GABAPENTIN 600 MG TABLET PO SCH (20:52)
[2018-06-17] MEDS: INSULIN GLARGINE 100 UNIT/ML SUBCUT SCH (20:53)
[2018-06-17] MEDS: FLUTICASONE 50 MCG NASAL SPRAY 16 GM BOTTLE BOTH NARES SCH (20:54)
[2018-06-18 04:57] LABS: Basophils # 0.1 10*3/uL (0.0-0.2); Eosinophils # 0.2 10*3/uL (0.0-0.87); Eosinophils % 2.6 % (0.00-10.9); Hematocrit 27.3 VOL% (42.0-52.0); Hemoglobin 8.4 GM/DL (14.0-18.0); Immature Granulocytes % 1.5 %; Immature Granulocytes Absolute 0.12 #; Lymphocytes # 1.2 10*3/uL (1.4-4.0); Lymphocytes % 14.9 % (21.2-54.2); Mean Corpuscular HGB Conc 30.8 GM/DL (32-36); Mean Corpuscular Hemoglobin 31 PG (27-34); Mean Corpuscular Volume 101.1 FL (87-102); Monocytes # 0.8 10*3/uL (0.11-0.8); Monocytes % 9.2 % (1.7-12.7); NRBC # 0.02 10*3/uL; Neutrophils # 5.8 10*3/uL (1.4-7.4); Neutrophils % 70.8 % (38.7-73.9); Platelet Count 320 T/CUMM (130-400); Red Cell Distribution Width 16.1 % (9.3-17.3); White Blood Count 8.1 T/CUMM (4-12)
[2018-06-18 05:03] LABS: INR 1.1; PT Patient Result 11.1 SECS
[2018-06-18 05:12] LABS: Osmolality,Calculated 274.1 MOS/KG (273-304); Potassium 4.4 MMOL/L (3.5-5.1)
[2018-06-18 05:57] LABS: Calcium 8.7 MG/DL (8.5-10.1); Osmolality,Calculated 274.1 MOS/KG (273-304); Potassium 4.4 MMOL/L (3.5-5.1)
[2018-06-18] MEDS: INSULIN LISPRO 100 UNIT/ML SUBCUT SCH ×7 (09:20→20:54)
[2018-06-18] MEDS ORDERED: LIDOCAINE 2% 5 ML VIAL ONE (10:38)
[2018-06-18] MEDS ORDERED: PROPOFOL 200 MG/20 ML VIAL IV ONE (10:38)
[2018-06-18] MEDS: SEVELAMER CARBONATE 800 MG TABLET PO SCH ×3 (11:26→17:03)
[2018-06-18] MEDS: MIDODRINE 5 MG TABLET PO SCH ×4 (11:26→20:52)
[2018-06-18] MEDS ORDERED: GLUCAGON 1 MG VIAL IM PRN (12:28)
[2018-06-18] MEDS ORDERED: DEXTROSE 50% 25 GM/50 ML VIAL IV PRN (12:28)
[2018-06-18] MEDS: ALLOPURINOL 300 MG TABLET PO SCH (12:36)
[2018-06-18] MEDS: POLYCARBOPHIL 625 MG TABLET PO SCH (12:36)
[2018-06-18] MEDS: CYANOCOBALAMIN 500 MCG TABLET PO SCH (12:36)
[2018-06-18] MEDS: FERROUS SULFATE 325 MG TABLET PO SCH ×2 (12:37→20:52)
[2018-06-18] MEDS: ASPIRIN CHEW 81 MG TABLET PO SCH (12:37)
[2018-06-18] MEDS: PANTOPRAZOLE 40 MG TABLET PO SCH (12:37)
[2018-06-18] MEDS: METOPROLOL SUCCINATE XL 50 MG TABLET PO SCH (12:37)
[2018-06-18] MEDS: CHOLESTYRAMINE 4 GM PACK PO SCH ×2 (12:38→20:52)
[2018-06-18] MEDS: NYSTATIN CREAM 15 GM TUBE TOP SCH ×2 (12:39→20:55)
[2018-06-18] MEDS ORDERED: DILTIAZEM CD 180 MG CAPSULE PO ONE (13:17)
[2018-06-18] MEDS: ATORVASTATIN 40 MG TABLET PO SCH (20:52)
[2018-06-18] MEDS: GABAPENTIN 600 MG TABLET PO SCH (20:52)
[2018-06-18] MEDS: FLUTICASONE 50 MCG NASAL SPRAY 16 GM BOTTLE BOTH NARES SCH (20:54)
[2018-06-18] MEDS: INSULIN GLARGINE 100 UNIT/ML SUBCUT SCH (20:54)
[2018-06-19 04:59] LABS: Basophils # 0.1 10*3/uL (0.0-0.2); Basophils % 0.8 % (0.0-0.8); Eosinophils # 0.2 10*3/uL (0.0-0.87); Eosinophils % 2.5 % (0.00-10.9); Hematocrit 25.9 VOL% (42.0-52.0); Immature Granulocytes % 1.3 %; Lymphocytes # 0.8 10*3/uL (1.4-4.0); Lymphocytes % 11.2 % (21.2-54.2); Mean Corpuscular HGB Conc 30.9 GM/DL (32-36); Mean Corpuscular Hemoglobin 32 PG (27-34); Mean Platelet Volume 10.9 FL (9.6-12.0); Monocytes # 0.6 10*3/uL (0.11-0.8); Monocytes % 8.5 % (1.7-12.7); NRBC # 0.02 10*3/uL; Neutrophils # 5.7 10*3/uL (1.4-7.4); Neutrophils % 75.7 % (38.7-73.9); Platelet Count 284 T/CUMM (130-400); Red Blood Count 2.54 MC/CUMM (3.8-5.5); Red Cell Distribution Width 16.4 % (9.3-17.3); White Blood Count 7.5 T/CUMM (4-12)
[2018-06-19 05:15] LABS: Calcium 8.4 MG/DL (8.5-10.1); Osmolality,Calculated 282.7 MOS/KG (273-304); Potassium 4.7 MMOL/L (3.5-5.1)
[2018-06-19 05:28] LABS: Hypochromasia 1+; Lymphocytes 15 % (20-55); Ovalocytes Slight; Platelet Estimate Adequate; Segmented Neutrophils 73 % (50-85); Total Cells Counted 100
[2018-06-19] MEDS: INSULIN LISPRO 100 UNIT/ML SUBCUT SCH ×3 (07:35→12:09)
[2018-06-19] MEDS ORDERED: CLOPIDOGREL 75 MG TABLET PO SCH (09:00)
[2018-06-19] MEDS ORDERED: DILTIAZEM CD 180 MG CAPSULE PO SCH (09:00)
[2018-06-19 12:01] VITALS: BP 114/53
[2018-06-19] MEDS: SEVELAMER CARBONATE 800 MG TABLET PO SCH ×2 (12:05→12:08)
[2018-06-19] MEDS: POLYCARBOPHIL 625 MG TABLET PO SCH (12:05)
[2018-06-19] MEDS: CYANOCOBALAMIN 500 MCG TABLET PO SCH (12:06)
[2018-06-19] MEDS: MIDODRINE 5 MG TABLET PO SCH (12:06)
[2018-06-19] MEDS: PANTOPRAZOLE 40 MG TABLET PO SCH (12:07)
[2018-06-19] MEDS: FERROUS SULFATE 325 MG TABLET PO SCH (12:07)
[2018-06-19] MEDS: ALLOPURINOL 300 MG TABLET PO SCH (12:07)
[2018-06-19] MEDS: ASPIRIN CHEW 81 MG TABLET PO SCH (12:07)
[2018-06-19] MEDS: NYSTATIN CREAM 15 GM TUBE TOP SCH (12:08)
[2018-06-19] MEDS: CALCITRIOL 0.25 MCG CAPSULE PO SCH (12:08)
[2018-06-19] MEDS: CHOLESTYRAMINE 4 GM PACK PO SCH (12:08)
== END 2018-06-19 12:48 | disposition home health service (06) | DRG 811 ==
LOC: EDBD → EDUNIT# → N.ED 10:17 → N.EDINP 10:17 → N.2W 13:30 → N.TELES 15:40
PROVIDERS: ADMIT Hospitalist; ATTEND Hospitalist

== ENCOUNTER 2018-07-10 11:13 | Inpatient (IN) ==
[2018-07-10 11:48] LABS: Basophils # 0.1 10*3/uL (0.0-0.2); Eosinophils # 0.3 10*3/uL (0.0-0.87); Eosinophils % 2.9 % (0.00-10.9); Hematocrit 30.2 VOL% (42.0-52.0); Hemoglobin 9.2 GM/DL (14.0-18.0); Immature Granulocytes % 1.3 %; Immature Granulocytes Absolute 0.11 #; Lymphocytes # 1.7 10*3/uL (1.4-4.0); Lymphocytes % 19.8 % (21.2-54.2); Mean Corpuscular HGB Conc 30.5 GM/DL (32-36); Mean Corpuscular Hemoglobin 32 PG (27-34); Mean Corpuscular Volume 103.8 FL (87-102); Mean Platelet Volume 9.4 FL (9.6-12.0); Monocytes # 0.7 10*3/uL (0.11-0.8); Monocytes % 8.6 % (1.7-12.7); Neutrophils # 5.7 10*3/uL (1.4-7.4); Neutrophils % 66.4 % (38.7-73.9); Platelet Count 264 T/CUMM (130-400); Red Blood Count 2.91 MC/CUMM (3.8-5.5); Red Cell Distribution Width 17.1 % (9.3-17.3); White Blood Count 8.6 T/CUMM (4-12)
[2018-07-10 11:54] LABS: PT Patient Result 10.8 SECS; Partial Thromboplastin Time 25.8 SECS (0-40)
[2018-07-10 12:27] LABS: Alanine Aminotransferase 16 U/L (16-61); Alkaline Phosphatase 253 U/L (45-117); Aspartate Amino Transferase 15 U/L (0-37); Blood Urea Nitrogen 9 MG/DL (7-18); Calcium 8.8 MG/DL (8.5-10.1); Glucose 128 MG/DL (74-106); Osmolality,Calculated 279.4 MOS/KG (273-304); Sodium 140 MMOL/L (136-145); Total Protein 7.2 G/DL (6.4-8.3); Troponin I Only < 0.015 NG/ML (0.00-0.045)
[2018-07-10 18:57] LABS: Hematocrit 27.1 VOL% (42.0-52.0); Hemoglobin 8.2 GM/DL (14.0-18.0)
[2018-07-11 06:36] LABS: Basophils # 0.1 10*3/uL (0.0-0.2); Eosinophils # 0.2 10*3/uL (0.0-0.87); Eosinophils % 3.3 % (0.00-10.9); Hematocrit 26.9 VOL% (42.0-52.0); Hemoglobin 8.3 GM/DL (14.0-18.0); Immature Granulocytes Absolute 0.07 #; Lymphocytes # 1.3 10*3/uL (1.4-4.0); Lymphocytes % 17.9 % (21.2-54.2); Mean Corpuscular HGB Conc 30.9 GM/DL (32-36); Mean Corpuscular Hemoglobin 32 PG (27-34); Mean Corpuscular Volume 103.5 FL (87-102); Mean Platelet Volume 9.8 FL (9.6-12.0); Monocytes # 0.6 10*3/uL (0.11-0.8); Monocytes % 7.9 % (1.7-12.7); Neutrophils % 68.9 % (38.7-73.9); Platelet Count 218 T/CUMM (130-400); Red Cell Distribution Width 16.7 % (9.3-17.3); White Blood Count 7.3 T/CUMM (4-12)
[2018-07-11 07:13] LABS: Calcium 8.1 MG/DL (8.5-10.1); Osmolality,Calculated 282.4 MOS/KG (273-304); Potassium 4.1 MMOL/L (3.5-5.1)
[2018-07-11 11:02] LABS: Hepatitis A Ab IgM Quant 0.24 Index; Hepatitis A Ab IgM Result Negative (Negative); Hepatitis B Core IgM Quant < 0.05 Index; Hepatitis B Core IgM Result Negative (Negative); Hepatitis C Virus Ab Quant 0.02 Index; Hepatitis C Virus Ab Result Negative (Negative)
[2018-07-11 14:05] LABS: Hematocrit 26.9 VOL% (42.0-52.0); Hemoglobin 8.2 GM/DL (14.0-18.0)
[2018-07-11 20:45] LABS: Hemoglobin 9.3 GM/DL (14.0-18.0)
[2018-07-12 06:31] LABS: Basophils # 0.1 10*3/uL (0.0-0.2); Basophils % 0.9 % (0.0-0.8); Eosinophils # 0.2 10*3/uL (0.0-0.87); Eosinophils % 3.3 % (0.00-10.9); Hemoglobin 9.9 GM/DL (14.0-18.0); Immature Granulocytes % 0.6 %; Immature Granulocytes Absolute 0.04 #; Lymphocytes # 1.2 10*3/uL (1.4-4.0); Lymphocytes % 17.8 % (21.2-54.2); Mean Corpuscular HGB Conc 31.9 GM/DL (32-36); Mean Corpuscular Hemoglobin 32 PG (27-34); Mean Platelet Volume 9.7 FL (9.6-12.0); Monocytes # 0.6 10*3/uL (0.11-0.8); Monocytes % 9.2 % (1.7-12.7); Neutrophils # 4.6 10*3/uL (1.4-7.4); Neutrophils % 68.2 % (38.7-73.9); Platelet Count 168 T/CUMM (130-400); Red Blood Count 3.13 MC/CUMM (3.8-5.5); Red Cell Distribution Width 16.7 % (9.3-17.3); White Blood Count 6.7 T/CUMM (4-12)
[2018-07-12 06:44] LABS: Calcium 8.1 MG/DL (8.5-10.1)
[2018-07-12 06:45] LABS: Osmolality,Calculated 272.8 MOS/KG (273-304); Potassium 4.4 MMOL/L (3.5-5.1)
[2018-07-13 06:19] LABS: Basophils # 0.1 10*3/uL (0.0-0.2); Basophils % 0.6 % (0.0-0.8); Eosinophils # 0.2 10*3/uL (0.0-0.87); Eosinophils % 1.9 % (0.00-10.9); Hematocrit 31.4 VOL% (42.0-52.0); Hemoglobin 9.7 GM/DL (14.0-18.0); Immature Granulocytes % 0.4 %; Immature Granulocytes Absolute 0.05 #; Lymphocytes # 1.3 10*3/uL (1.4-4.0); Lymphocytes % 10.8 % (21.2-54.2); Mean Corpuscular HGB Conc 30.9 GM/DL (32-36); Mean Corpuscular Hemoglobin 31 PG (27-34); Mean Corpuscular Volume 101.6 FL (87-102); Monocytes # 0.7 10*3/uL (0.11-0.8); Neutrophils # 9.6 10*3/uL (1.4-7.4); Neutrophils % 80.3 % (38.7-73.9); Platelet Count 175 T/CUMM (130-400); Red Blood Count 3.09 MC/CUMM (3.8-5.5); Red Cell Distribution Width 16.2 % (9.3-17.3); White Blood Count 11.9 T/CUMM (4-12)
[2018-07-13 06:34] LABS: Calcium 7.9 MG/DL (8.5-10.1); Osmolality,Calculated 286.3 MOS/KG (273-304); Potassium 4.9 MMOL/L (3.5-5.1)
[2018-07-13 07:20] LABS: Hepatitis B Surface Ag Quant 0.48 Index
[2018-07-13 07:22] LABS: Hepatitis B Surface Ag Result Negative (Negative)
[2018-07-14 09:47] LABS: Hematocrit 29.3 VOL% (42.0-52.0); Hemoglobin 9.5 GM/DL (14.0-18.0)
[2018-07-15 09:58] LABS: Hematocrit 33.7 VOL% (42.0-52.0); Hemoglobin 10.7 GM/DL (14.0-18.0)
[2018-07-16 04:20] LABS: Hematocrit 29.3 VOL% (42.0-52.0); Hemoglobin 9.1 GM/DL (14.0-18.0)
[2018-07-16 07:19] LABS: Calcium 7.9 MG/DL (8.5-10.1); Osmolality,Calculated 288.3 MOS/KG (273-304); Potassium 5.6 MMOL/L (3.5-5.1)
[2018-07-17 05:39] LABS: Basophils # 0.1 10*3/uL (0.0-0.2); Basophils % 1.2 % (0.0-0.8); Eosinophils # 0.2 10*3/uL (0.0-0.87); Eosinophils % 3.1 % (0.00-10.9); Hemoglobin 9.2 GM/DL (14.0-18.0); Immature Granulocytes % 0.6 %; Immature Granulocytes Absolute 0.04 #; Lymphocytes # 1.2 10*3/uL (1.4-4.0); Lymphocytes % 18.2 % (21.2-54.2); Mean Corpuscular HGB Conc 30.7 GM/DL (32-36); Mean Corpuscular Hemoglobin 31 PG (27-34); Mean Platelet Volume 10.5 FL (9.6-12.0); Monocytes # 0.7 10*3/uL (0.11-0.8); Monocytes % 11.1 % (1.7-12.7); Neutrophils # 4.3 10*3/uL (1.4-7.4); Neutrophils % 65.8 % (38.7-73.9); Platelet Count 192 T/CUMM (130-400); Red Blood Count 2.97 MC/CUMM (3.8-5.5); Red Cell Distribution Width 15.7 % (9.3-17.3); White Blood Count 6.5 T/CUMM (4-12)
[2018-07-17 05:58] LABS: Calcium 8.1 MG/DL (8.5-10.1)
[2018-07-17 05:59] LABS: Osmolality,Calculated 278.7 MOS/KG (273-304); Potassium 4.7 MMOL/L (3.5-5.1)
[2018-07-17 16:27] VITALS: BP 98/54
== END 2018-07-17 16:47 | disposition home or self-care (01) | DRG 377 ==
LOC: EDBD → EDUNIT# → N.ED 11:13 → SUATTDRO 12:56 → N.EDINP 12:56 → N.5E 16:15
PROVIDERS: ADMIT Internal Medicine; ATTEND Internal Medicine

== ENCOUNTER 2018-08-26 14:44 | Inpatient (IN) ==
[2018-08-26] MEDS ORDERED: SODIUM CHLORIDE 0.9% 250 ML IV STA (15:12)
[2018-08-26 16:11] LABS: PT Patient Result 10.8 SECS; Partial Thromboplastin Time 30.1 SECS (0-40)
[2018-08-26 16:21] LABS: Alanine Aminotransferase 9 U/L (16-61); Albumin 3.1 G/DL (3.4-5.0); Alkaline Phosphatase 171 U/L (45-117); Aspartate Amino Transferase 11 U/L (0-37); Bilirubin,Total < 0.39 MG/DL (0.2-1.0); Blood Urea Nitrogen 22 MG/DL (7-18); Glucose 97 MG/DL (74-106); Lactic Acid 2.3 MMOL/L (0.4-2.0); Osmolality,Calculated 277.7 MOS/KG (273-304); Potassium 5.1 MMOL/L (3.5-5.1); Sodium 138 MMOL/L (136-145); Total Protein 6.4 G/DL (6.4-8.3)
[2018-08-26] MEDS ORDERED: DICYCLOMINE 20 MG/2 ML AMP IM ONE (16:49)
[2018-08-26] MEDS ORDERED: metroNIDAZOLE INJ 500 MG in PREMIX 1 EACH IV STA (16:49)
[2018-08-26] MEDS ORDERED: CIPROFLOXACIN INJ 400 MG in PREMIX 1 EACH IV STA (16:49)
[2018-08-26 16:56] LABS: Basophils # 0.1 10*3/uL (0.0-0.2); Basophils % 0.7 % (0.0-0.8); Eosinophils # 0.3 10*3/uL (0.0-0.87); Eosinophils % 3.8 % (0.00-10.9); Hematocrit 33.1 VOL% (42.0-52.0); Hemoglobin 10.1 GM/DL (14.0-18.0); Immature Granulocytes % 0.7 %; Immature Granulocytes Absolute 0.06 #; Lymphocytes # 1.6 10*3/uL (1.4-4.0); Lymphocytes % 17.6 % (21.2-54.2); Mean Corpuscular HGB Conc 30.5 GM/DL (32-36); Mean Corpuscular Hemoglobin 31 PG (27-34); Mean Corpuscular Volume 101.5 FL (87-102); Mean Platelet Volume 10.5 FL (9.6-12.0); Monocytes # 0.9 10*3/uL (0.11-0.8); Monocytes % 10.6 % (1.7-12.7); Neutrophils # 5.9 10*3/uL (1.4-7.4); Neutrophils % 66.6 % (38.7-73.9); Platelet Count 182 T/CUMM (130-400); Red Blood Count 3.26 MC/CUMM (3.8-5.5); White Blood Count 8.9 T/CUMM (4-12)
[2018-08-26] MEDS ORDERED: ONDANSETRON 4 MG/2 ML VIAL IV PRN (17:02)
[2018-08-26] MEDS ORDERED: ALBUTEROL 2.5 MG/3 ML NEB RESP TX PRN (17:02)
[2018-08-26] MEDS ORDERED: MAGNESIUM SULF RIDER 2 GM in PREMIX 1 EACH IV PRN ×2 (17:02→17:10)
[2018-08-26] MEDS ORDERED: MAGNESIUM SULF RIDER 4 GM in PREMIX 1 EACH IV PRN ×2 (17:02→17:10)
[2018-08-26] MEDS ORDERED: PANTOPRAZOLE 40 MG VIAL IV SCH (18:00)
[2018-08-26] MEDS: NOREPINEPHRINE 8 MG in SODIUM CHLORIDE 0.9% 242 ML IV SCH (19:21)
[2018-08-26] MEDS ORDERED: DOCUSATE/SENNA 50-8.6 MG TABLET PO PRN (19:49)
[2018-08-26] MEDS: FLUTICASONE 50 MCG NASAL SPRAY 16 GM BOTTLE BOTH NARES SCH (20:57)
[2018-08-26] MEDS: GABAPENTIN 600 MG TABLET PO SCH (20:57)
[2018-08-26] MEDS: SODIUM CHLORIDE 0.9% 1,000 ML IV SCH (20:57)
[2018-08-26] MEDS: ATORVASTATIN 40 MG TABLET PO SCH (20:57)
[2018-08-26] MEDS: PIPERACILLIN/TAZOBACTAM 3,375 MG in SODIUM CHLORIDE 0.9% 100 ML IV SCH (20:57)
[2018-08-26] MEDS: MIDODRINE 5 MG TABLET PO SCH (20:57)
[2018-08-26] MEDS: CALCITRIOL 0.25 MCG CAPSULE PO SCH (20:57)
[2018-08-26] MEDS: FERROUS SULFATE 325 MG TABLET PO SCH (20:57)
[2018-08-27] MEDS ORDERED: metroNIDAZOLE INJ 500 MG in PREMIX 1 EACH IV SCH (01:00)
[2018-08-27] MEDS: NOREPINEPHRINE 8 MG in SODIUM CHLORIDE 0.9% 242 ML IV SCH ×2 (02:18→18:11)
[2018-08-27] MEDS: SODIUM CHLORIDE 0.9% 1,000 ML IV SCH ×3 (02:31→18:11)
[2018-08-27 02:56] LABS: Basophils # 0.1 10*3/uL (0.0-0.2); Basophils % 0.7 % (0.0-0.8); Eosinophils # 0.3 10*3/uL (0.0-0.87); Eosinophils % 4.2 % (0.00-10.9); Hematocrit 31.3 VOL% (42.0-52.0); Hemoglobin 9.5 GM/DL (14.0-18.0); Immature Granulocytes % 0.7 %; Immature Granulocytes Absolute 0.05 #; Lymphocytes # 1.7 10*3/uL (1.4-4.0); Lymphocytes % 24.6 % (21.2-54.2); Mean Corpuscular HGB Conc 30.4 GM/DL (32-36); Mean Corpuscular Hemoglobin 31 PG (27-34); Mean Platelet Volume 10.7 FL (9.6-12.0); Monocytes # 0.7 10*3/uL (0.11-0.8); Neutrophils # 4.1 10*3/uL (1.4-7.4); Neutrophils % 59.8 % (38.7-73.9); Platelet Count 155 T/CUMM (130-400); Red Cell Distribution Width 15.9 % (9.3-17.3); White Blood Count 6.9 T/CUMM (4-12)
[2018-08-27 03:55] LABS: Alanine Aminotransferase < 9 U/L (16-61); Albumin 2.7 G/DL (3.4-5.0); Alkaline Phosphatase 149 U/L (45-117); Aspartate Amino Transferase 8 U/L (0-37); Bilirubin,Total < 0.39 MG/DL (0.2-1.0); Blood Urea Nitrogen 24 MG/DL (7-18); Calcium 7.5 MG/DL (8.5-10.1); Glucose 79 MG/DL (74-106); Osmolality,Calculated 281.4 MOS/KG (273-304); Potassium 4.4 MMOL/L (3.5-5.1); Sodium 140 MMOL/L (136-145); Total Protein 6.2 G/DL (6.4-8.3)
[2018-08-27] MEDS ORDERED: GLUCAGON 1 MG VIAL IM PRN (08:31)
[2018-08-27] MEDS ORDERED: DEXTROSE 50% 25 GM/50 ML VIAL IV PRN (08:31)
[2018-08-27] MEDS: POLYCARBOPHIL 625 MG TABLET PO SCH (08:46)
[2018-08-27] MEDS: SEVELAMER CARBONATE 800 MG TABLET PO SCH ×3 (08:46→18:11)
[2018-08-27] MEDS: MIDODRINE 5 MG TABLET PO SCH ×3 (08:46→20:31)
[2018-08-27] MEDS: CYANOCOBALAMIN 500 MCG TABLET PO SCH (08:46)
[2018-08-27] MEDS: ALLOPURINOL 300 MG TABLET PO SCH (08:47)
[2018-08-27] MEDS: FERROUS SULFATE 325 MG TABLET PO SCH ×2 (08:47→20:31)
[2018-08-27] MEDS ORDERED: CLOPIDOGREL 75 MG TABLET PO SCH (09:00)
[2018-08-27] MEDS ORDERED: PIPERACILLIN/TAZOBACTAM 3,375 MG in SODIUM CHLORIDE 0.9% 100 ML IV SCH ×2 (09:24→09:30)
[2018-08-27] MEDS: PIPERACILLIN/TAZOBACTAM 3,375 MG in SODIUM CHLORIDE 0.9% 100 ML IV SCH (09:24)
[2018-08-27] MEDS: DILTIAZEM CD 180 MG CAPSULE PO SCH (09:45)
[2018-08-27] MEDS: PANTOPRAZOLE 40 MG TABLET PO SCH (13:08)
[2018-08-27] MEDS: INSULIN REGULAR 100 UNIT/ML SUBCUT SCH ×3 (13:28→20:31)
[2018-08-27] MEDS: ATORVASTATIN 40 MG TABLET PO SCH (20:31)
[2018-08-27] MEDS: GABAPENTIN 600 MG TABLET PO SCH (20:31)
[2018-08-27] MEDS: FLUTICASONE 50 MCG NASAL SPRAY 16 GM BOTTLE BOTH NARES SCH (20:31)
[2018-08-27] MEDS ORDERED: CIPROFLOXACIN INJ 400 MG in PREMIX 1 EACH IV SCH (21:00)
[2018-08-28 07:26] LABS: Basophils % 0.5 % (0.0-0.8); Eosinophils # 0.2 10*3/uL (0.0-0.87); Eosinophils % 3.1 % (0.00-10.9); Hemoglobin 10.1 GM/DL (14.0-18.0); Immature Granulocytes % 0.4 %; Immature Granulocytes Absolute 0.03 #; Lymphocytes # 0.8 10*3/uL (1.4-4.0); Mean Corpuscular HGB Conc 29.7 GM/DL (32-36); Mean Corpuscular Hemoglobin 30 PG (27-34); Mean Corpuscular Volume 101.2 FL (87-102); Mean Platelet Volume 10.4 FL (9.6-12.0); Monocytes # 0.6 10*3/uL (0.11-0.8); Monocytes % 7.5 % (1.7-12.7); Neutrophils # 5.9 10*3/uL (1.4-7.4); Neutrophils % 77.5 % (38.7-73.9); Platelet Count 160 T/CUMM (130-400); Red Blood Count 3.36 MC/CUMM (3.8-5.5); Red Cell Distribution Width 15.5 % (9.3-17.3); White Blood Count 7.7 T/CUMM (4-12)
[2018-08-28 08:04] LABS: Alanine Aminotransferase < 9 U/L (16-61); Albumin 2.6 G/DL (3.4-5.0); Alkaline Phosphatase 151 U/L (45-117); Aspartate Amino Transferase 7 U/L (0-37); Bilirubin,Total < 0.39 MG/DL (0.2-1.0); Blood Urea Nitrogen 17 MG/DL (7-18); Calcium 8.1 MG/DL (8.5-10.1); Glucose 108 MG/DL (74-106); Osmolality,Calculated 277.7 MOS/KG (273-304); Sodium 138 MMOL/L (136-145); Total Protein 6.4 G/DL (6.4-8.3)
[2018-08-28] MEDS ORDERED: BUPIVACAINE MPF 0.25% /EPI 30 ML VIAL ONE (08:37)
[2018-08-28] MEDS ORDERED: LIDOCAINE 1%/EPI INJ 20 ML VIAL ONE (08:37)
[2018-08-28] MEDS ORDERED: PROPOFOL 200 MG/20 ML VIAL IV ONE (09:50)
[2018-08-28] MEDS: INSULIN REGULAR 100 UNIT/ML SUBCUT SCH ×4 (11:44→20:43)
[2018-08-28] MEDS: MIDODRINE 5 MG TABLET PO SCH ×3 (11:45→20:37)
[2018-08-28] MEDS: SEVELAMER CARBONATE 800 MG TABLET PO SCH ×3 (11:45→17:43)
[2018-08-28] MEDS: PANTOPRAZOLE 40 MG TABLET PO SCH (17:38)
[2018-08-28] MEDS: POLYCARBOPHIL 625 MG TABLET PO SCH (17:38)
[2018-08-28] MEDS: DILTIAZEM CD 180 MG CAPSULE PO SCH (17:38)
[2018-08-28] MEDS: ALLOPURINOL 300 MG TABLET PO SCH (17:38)
[2018-08-28] MEDS: FERROUS SULFATE 325 MG TABLET PO SCH ×2 (17:39→20:37)
[2018-08-28] MEDS: CALCITRIOL 0.25 MCG CAPSULE PO SCH (17:39)
[2018-08-28] MEDS: CYANOCOBALAMIN 500 MCG TABLET PO SCH (17:39)
[2018-08-28] MEDS: PIPERACILLIN/TAZOBACTAM 3,375 MG in SODIUM CHLORIDE 0.9% 100 ML IV SCH (17:43)
[2018-08-28] MEDS: FLUTICASONE 50 MCG NASAL SPRAY 16 GM BOTTLE BOTH NARES SCH (20:36)
[2018-08-28] MEDS: ATORVASTATIN 40 MG TABLET PO SCH (20:36)
[2018-08-28] MEDS: CHOLESTYRAMINE 4 GM PACK PO SCH (20:37)
[2018-08-28] MEDS: GABAPENTIN 600 MG TABLET PO SCH (20:37)
[2018-08-28] MEDS: diphenhydrAMINE 50 MG/1 ML VIAL IM PRN (22:19)
[2018-08-29 05:41] LABS: Basophils % 0.6 % (0.0-0.8); Eosinophils # 0.4 10*3/uL (0.0-0.87); Eosinophils % 5.1 % (0.00-10.9); Hematocrit 32.5 VOL% (42.0-52.0); Hemoglobin 9.6 GM/DL (14.0-18.0); Immature Granulocytes % 0.6 %; Immature Granulocytes Absolute 0.04 #; Lymphocytes # 1.1 10*3/uL (1.4-4.0); Lymphocytes % 15.2 % (21.2-54.2); Mean Corpuscular HGB Conc 29.5 GM/DL (32-36); Mean Corpuscular Hemoglobin 30 PG (27-34); Mean Corpuscular Volume 101.9 FL (87-102); Mean Platelet Volume 10.9 FL (9.6-12.0); Monocytes # 0.7 10*3/uL (0.11-0.8); Monocytes % 9.1 % (1.7-12.7); Neutrophils % 69.4 % (38.7-73.9); Platelet Count 173 T/CUMM (130-400); Red Blood Count 3.19 MC/CUMM (3.8-5.5); Red Cell Distribution Width 15.4 % (9.3-17.3); White Blood Count 7.3 T/CUMM (4-12)
[2018-08-29] MEDS: PIPERACILLIN/TAZOBACTAM 3,375 MG in SODIUM CHLORIDE 0.9% 100 ML IV SCH ×2 (06:07→17:19)
[2018-08-29 06:12] LABS: Alanine Aminotransferase < 9 U/L (16-61); Albumin 2.4 G/DL (3.4-5.0); Alkaline Phosphatase 136 U/L (45-117); Aspartate Amino Transferase 8 U/L (0-37); Blood Urea Nitrogen 29 MG/DL (7-18); Calcium 7.7 MG/DL (8.5-10.1); Glucose 123 MG/DL (74-106); Osmolality,Calculated 283.5 MOS/KG (273-304); Potassium 5.3 MMOL/L (3.5-5.1); Sodium 139 MMOL/L (136-145); Total Protein 6.2 G/DL (6.4-8.3)
[2018-08-29] MEDS: INSULIN REGULAR 100 UNIT/ML SUBCUT SCH ×4 (07:59→21:00)
[2018-08-29] MEDS: FERROUS SULFATE 325 MG TABLET PO SCH ×2 (08:54→20:25)
[2018-08-29] MEDS: ALLOPURINOL 300 MG TABLET PO SCH (08:54)
[2018-08-29] MEDS: CHOLESTYRAMINE 4 GM PACK PO SCH ×2 (08:54→20:26)
[2018-08-29] MEDS: PANTOPRAZOLE 40 MG TABLET PO SCH (08:54)
[2018-08-29] MEDS: POLYCARBOPHIL 625 MG TABLET PO SCH (08:54)
[2018-08-29] MEDS: CYANOCOBALAMIN 500 MCG TABLET PO SCH (08:54)
[2018-08-29] MEDS: MIDODRINE 5 MG TABLET PO SCH ×3 (10:24→20:25)
[2018-08-29] MEDS: DILTIAZEM CD 180 MG CAPSULE PO SCH (10:25)
[2018-08-29] MEDS: SEVELAMER CARBONATE 800 MG TABLET PO SCH ×3 (12:24→17:19)
[2018-08-29] MEDS: diphenhydrAMINE 50 MG/1 ML VIAL IM PRN (17:28)
[2018-08-29] MEDS: FLUTICASONE 50 MCG NASAL SPRAY 16 GM BOTTLE BOTH NARES SCH (20:26)
[2018-08-29] MEDS: GABAPENTIN 600 MG TABLET PO SCH (20:26)
[2018-08-29] MEDS: ATORVASTATIN 40 MG TABLET PO SCH (20:26)
[2018-08-30 04:06] LABS: Basophils # 0.1 10*3/uL (0.0-0.2); Eosinophils # 0.4 10*3/uL (0.0-0.87); Hematocrit 31.5 VOL% (42.0-52.0); Hemoglobin 9.7 GM/DL (14.0-18.0); Immature Granulocytes % 0.6 %; Immature Granulocytes Absolute 0.05 #; Lymphocytes # 1.2 10*3/uL (1.4-4.0); Lymphocytes % 14.2 % (21.2-54.2); Mean Corpuscular HGB Conc 30.8 GM/DL (32-36); Mean Corpuscular Hemoglobin 31 PG (27-34); Monocytes # 0.7 10*3/uL (0.11-0.8); Monocytes % 8.8 % (1.7-12.7); Neutrophils # 5.8 10*3/uL (1.4-7.4); Neutrophils % 70.4 % (38.7-73.9); Platelet Count 176 T/CUMM (130-400); Red Blood Count 3.12 MC/CUMM (3.8-5.5); Red Cell Distribution Width 15.3 % (9.3-17.3); White Blood Count 8.2 T/CUMM (4-12)
[2018-08-30 04:27] LABS: Alanine Aminotransferase < 9 U/L (16-61); Albumin 2.5 G/DL (3.4-5.0); Alkaline Phosphatase 134 U/L (45-117); Aspartate Amino Transferase 9 U/L (0-37); Blood Urea Nitrogen 25 MG/DL (7-18); Calcium 7.8 MG/DL (8.5-10.1); Glucose 106 MG/DL (74-106); Osmolality,Calculated 282.4 MOS/KG (273-304); Sodium 140 MMOL/L (136-145); Total Protein 6.3 G/DL (6.4-8.3)
[2018-08-30] MEDS: PIPERACILLIN/TAZOBACTAM 3,375 MG in SODIUM CHLORIDE 0.9% 100 ML IV SCH (06:32)
[2018-08-30] MEDS: POLYCARBOPHIL 625 MG TABLET PO SCH (08:55)
[2018-08-30] MEDS: SEVELAMER CARBONATE 800 MG TABLET PO SCH ×3 (08:55→17:59)
[2018-08-30] MEDS: CYANOCOBALAMIN 500 MCG TABLET PO SCH (08:55)
[2018-08-30] MEDS: CHOLESTYRAMINE 4 GM PACK PO SCH ×2 (08:55→21:44)
[2018-08-30] MEDS: MIDODRINE 5 MG TABLET PO SCH ×3 (08:55→21:44)
[2018-08-30] MEDS: ALLOPURINOL 300 MG TABLET PO SCH (08:55)
[2018-08-30] MEDS: PANTOPRAZOLE 40 MG TABLET PO SCH (08:56)
[2018-08-30] MEDS: DILTIAZEM CD 180 MG CAPSULE PO SCH (08:56)
[2018-08-30] MEDS: INSULIN REGULAR 100 UNIT/ML SUBCUT SCH ×4 (08:56→22:09)
[2018-08-30] MEDS: FERROUS SULFATE 325 MG TABLET PO SCH ×2 (08:56→21:44)
[2018-08-30] MEDS ORDERED: VANCOMYCIN INJ 750 MG in SODIUM CHLORIDE 0.9% 250 ML IV PRN (13:02)
[2018-08-30] MEDS ORDERED: VANCOMYCIN INJ 2,000 MG in SODIUM CHLORIDE 0.9% 500 ML IV ONE (15:00)
[2018-08-30] MEDS: diphenhydrAMINE 50 MG/1 ML VIAL IM PRN (21:43)
[2018-08-30] MEDS: GABAPENTIN 600 MG TABLET PO SCH (21:44)
[2018-08-30] MEDS: ATORVASTATIN 40 MG TABLET PO SCH (21:44)
[2018-08-30] MEDS: FLUTICASONE 50 MCG NASAL SPRAY 16 GM BOTTLE BOTH NARES SCH (21:45)
[2018-08-31 04:59] LABS: Basophils # 0.1 10*3/uL (0.0-0.2); Basophils % 0.8 % (0.0-0.8); Eosinophils # 0.3 10*3/uL (0.0-0.87); Eosinophils % 4.4 % (0.00-10.9); Hematocrit 29.7 VOL% (42.0-52.0); Hemoglobin 8.9 GM/DL (14.0-18.0); Immature Granulocytes % 0.5 %; Immature Granulocytes Absolute 0.04 #; Lymphocytes # 1.2 10*3/uL (1.4-4.0); Lymphocytes % 15.5 % (21.2-54.2); Mean Corpuscular Hemoglobin 30 PG (27-34); Mean Corpuscular Volume 100.7 FL (87-102); Mean Platelet Volume 10.8 FL (9.6-12.0); Monocytes # 0.7 10*3/uL (0.11-0.8); Monocytes % 8.3 % (1.7-12.7); Neutrophils # 5.5 10*3/uL (1.4-7.4); Neutrophils % 70.5 % (38.7-73.9); Platelet Count 177 T/CUMM (130-400); Red Blood Count 2.95 MC/CUMM (3.8-5.5); Red Cell Distribution Width 15.2 % (9.3-17.3); White Blood Count 7.8 T/CUMM (4-12)
[2018-08-31 05:28] LABS: Calcium 7.6 MG/DL (8.5-10.1); Osmolality,Calculated 285.4 MOS/KG (273-304); Potassium 5.4 MMOL/L (3.5-5.1)
[2018-08-31] MEDS: PANTOPRAZOLE 40 MG TABLET PO SCH (09:31)
[2018-08-31] MEDS: SEVELAMER CARBONATE 800 MG TABLET PO SCH ×3 (09:31→17:34)
[2018-08-31] MEDS: ALLOPURINOL 300 MG TABLET PO SCH (09:31)
[2018-08-31] MEDS: CHOLESTYRAMINE 4 GM PACK PO SCH ×2 (09:31→20:58)
[2018-08-31] MEDS: CYANOCOBALAMIN 500 MCG TABLET PO SCH (09:31)
[2018-08-31] MEDS: CALCITRIOL 0.25 MCG CAPSULE PO SCH (09:31)
[2018-08-31] MEDS: MIDODRINE 5 MG TABLET PO SCH ×3 (09:31→20:58)
[2018-08-31] MEDS: FERROUS SULFATE 325 MG TABLET PO SCH ×2 (09:32→20:58)
[2018-08-31] MEDS: DILTIAZEM CD 180 MG CAPSULE PO SCH (09:32)
[2018-08-31] MEDS: INSULIN REGULAR 100 UNIT/ML SUBCUT SCH ×4 (09:32→20:59)
[2018-08-31] MEDS: ASPIRIN EC 81 MG TABLET PO SCH (14:17)
[2018-08-31] MEDS ORDERED: WARFARIN 10 MG TABLET PO SCH (18:00)
[2018-08-31] MEDS: GABAPENTIN 600 MG TABLET PO SCH (20:58)
[2018-08-31] MEDS: FLUTICASONE 50 MCG NASAL SPRAY 16 GM BOTTLE BOTH NARES SCH (20:58)
[2018-08-31] MEDS: ATORVASTATIN 40 MG TABLET PO SCH (20:58)
[2018-08-31] MEDS: diphenhydrAMINE 50 MG/1 ML VIAL IM PRN (20:59)
[2018-09-01] MEDS: INSULIN REGULAR 100 UNIT/ML SUBCUT SCH ×3 (10:19→16:44)
[2018-09-01] MEDS: SEVELAMER CARBONATE 800 MG TABLET PO SCH ×3 (10:20→16:44)
[2018-09-01] MEDS: FERROUS SULFATE 325 MG TABLET PO SCH (12:45)
[2018-09-01] MEDS: MIDODRINE 5 MG TABLET PO SCH ×2 (12:45→16:44)
[2018-09-01] MEDS: PANTOPRAZOLE 40 MG TABLET PO SCH (12:45)
[2018-09-01] MEDS: DILTIAZEM CD 180 MG CAPSULE PO SCH (12:45)
[2018-09-01] MEDS: ASPIRIN EC 81 MG TABLET PO SCH (12:45)
[2018-09-01] MEDS: CHOLESTYRAMINE 4 GM PACK PO SCH (12:46)
[2018-09-01] MEDS: ALLOPURINOL 300 MG TABLET PO SCH (12:46)
[2018-09-01] MEDS: CYANOCOBALAMIN 500 MCG TABLET PO SCH (12:46)
[2018-09-01 16:14] VITALS: BP 93/53
== END 2018-09-01 17:18 | disposition home health service (06) ==
LOC: N.ED 14:44 → N.EDINP 16:59 → SUATTDRO 16:59 → N.ICU 18:00 → N.5E 08-27 20:56
PROVIDERS: ADMIT Internal Medicine; ATTEND Internal Medicine

== ENCOUNTER 2018-09-08 11:42 | Inpatient (IN) ==
[2018-09-08] MEDS ORDERED: ASPIRIN 325 MG TABLET ONE (12:57)
[2018-09-08] MEDS ORDERED: ASPIRIN 325 MG TABLET PO STA (12:57)
[2018-09-08 13:07] LABS: Basophils # 0.1 10*3/uL (0.0-0.2); Basophils % 0.8 % (0.0-0.8); Eosinophils # 0.2 10*3/uL (0.0-0.87); Eosinophils % 1.9 % (0.00-10.9); Hematocrit 28.6 VOL% (42.0-52.0); Hemoglobin 8.8 GM/DL (14.0-18.0); Lymphocytes # 1.6 10*3/uL (1.4-4.0); Lymphocytes % 15.2 % (21.2-54.2); Mean Corpuscular HGB Conc 30.8 GM/DL (32-36); Mean Corpuscular Hemoglobin 31 PG (27-34); Mean Corpuscular Volume 101.1 FL (87-102); Mean Platelet Volume 10.1 FL (9.6-12.0); Monocytes # 0.6 10*3/uL (0.11-0.8); Monocytes % 6.1 % (1.7-12.7); NRBC # 0.02 10*3/uL; Neutrophils # 7.7 10*3/uL (1.4-7.4); Platelet Count 194 T/CUMM (130-400); Red Blood Count 2.83 MC/CUMM (3.8-5.5); Red Cell Distribution Width 15.2 % (9.3-17.3); White Blood Count 10.3 T/CUMM (4-12)
[2018-09-08 13:36] LABS: Alanine Aminotransferase 9 U/L (16-61); Albumin 3.1 G/DL (3.4-5.0); Alkaline Phosphatase 148 U/L (45-117); Aspartate Amino Transferase 9 U/L (0-37); Bilirubin,Total < 0.39 MG/DL (0.2-1.0); Blood Urea Nitrogen 37 MG/DL (7-18); Glucose 178 MG/DL (74-106); Osmolality,Calculated 285.8 MOS/KG (273-304); Potassium 4.3 MMOL/L (3.5-5.1); Sodium 137 MMOL/L (136-145); Total Protein 6.9 G/DL (6.4-8.3)
[2018-09-08] MEDS ORDERED: LABETALOL 20 MG/4 ML SYRINGE IV PRN (14:01)
[2018-09-08] MEDS ORDERED: ACETAMINOPHEN 325 MG TABLET PO PRN (14:07)
[2018-09-08] MEDS ORDERED: ONDANSETRON 4 MG/2 ML VIAL IV PRN (14:07)
[2018-09-08] MEDS ORDERED: DOCUSATE/SENNA 50-8.6 MG TABLET PO PRN (14:49)
[2018-09-08 15:38] LABS: Risk Ratio 2.77; VLDL CHOLESTEROL 39.4 MG/DL
[2018-09-08] MEDS: INSULIN LISPRO 100 UNIT/ML SUBCUT SCH ×2 (16:40→17:39)
[2018-09-08] MEDS: BISOPROLOL 5 MG TABLET PO SCH (16:40)
[2018-09-08] MEDS: MIDODRINE 5 MG TABLET PO SCH ×2 (16:40→21:45)
[2018-09-08] MEDS: ISOSORBIDE MONONITRATE 30 MG TABLET PO SCH (16:40)
[2018-09-08] MEDS: FERROUS SULFATE 325 MG TABLET PO SCH ×2 (16:40→21:44)
[2018-09-08] MEDS: SEVELAMER CARBONATE 800 MG TABLET PO SCH (17:39)
[2018-09-08] MEDS: SODIUM CHLORIDE 0.9% 1,000 ML IV SCH (17:40)
[2018-09-08] MEDS ORDERED: ENOXAPARIN 30 MG/0.3 ML SYRINGE SUBCUT SCH (21:00)
[2018-09-08] MEDS: INSULIN GLARGINE 100 UNIT/ML SUBCUT SCH (21:44)
[2018-09-08] MEDS: ATORVASTATIN 40 MG TABLET PO SCH (21:45)
[2018-09-08] MEDS: GABAPENTIN 600 MG TABLET PO SCH (21:45)
[2018-09-08] MEDS: FLUTICASONE 50 MCG NASAL SPRAY 16 GM BOTTLE BOTH NARES SCH (21:46)
[2018-09-09 06:36] LABS: Basophils % 0.8 % (0.0-0.8); Eosinophils % 2.8 % (0.00-10.9); Hematocrit 32.4 VOL% (42.0-52.0); Hemoglobin 9.7 GM/DL (14.0-18.0); Immature Granulocytes % 0.8 %; Lymphocytes # 1.2 10*3/uL (1.4-4.0); Lymphocytes % 11.5 % (21.2-54.2); Mean Corpuscular HGB Conc 29.9 GM/DL (32-36); Mean Corpuscular Hemoglobin 30 PG (27-34); Mean Corpuscular Volume 99.7 FL (87-102); Mean Platelet Volume 10.2 FL (9.6-12.0); Neutrophils # 8.1 10*3/uL (1.4-7.4); Neutrophils % 78.1 % (38.7-73.9); Platelet Count 238 T/CUMM (130-400); Red Blood Count 3.25 MC/CUMM (3.8-5.5); Red Cell Distribution Width 15.4 % (9.3-17.3); White Blood Count 10.3 T/CUMM (4-12)
[2018-09-09 06:37] LABS: Basophils # 0.1 10*3/uL (0.0-0.2); Eosinophils # 0.3 10*3/uL (0.0-0.87); Immature Granulocytes Absolute 0.08 #; Monocytes # 0.6 10*3/uL (0.11-0.8); NRBC # 0.03 10*3/uL
[2018-09-09 06:59] LABS: Osmolality,Calculated 285.7 MOS/KG (273-304); Potassium 4.9 MMOL/L (3.5-5.1)
[2018-09-09] MEDS: INSULIN LISPRO 100 UNIT/ML SUBCUT SCH ×3 (08:20→17:18)
[2018-09-09] MEDS: SEVELAMER CARBONATE 800 MG TABLET PO SCH ×3 (08:20→17:19)
[2018-09-09] MEDS: POLYCARBOPHIL 625 MG TABLET PO SCH (08:21)
[2018-09-09] MEDS: FERROUS SULFATE 325 MG TABLET PO SCH ×2 (08:21→22:42)
[2018-09-09] MEDS: DILTIAZEM CD 180 MG CAPSULE PO SCH (08:21)
[2018-09-09] MEDS: ASPIRIN 325 MG TABLET PO SCH (08:21)
[2018-09-09] MEDS: PANTOPRAZOLE 40 MG TABLET PO SCH (08:21)
[2018-09-09] MEDS: ISOSORBIDE MONONITRATE 30 MG TABLET PO SCH (08:21)
[2018-09-09] MEDS: MIDODRINE 5 MG TABLET PO SCH ×4 (08:21→22:41)
[2018-09-09] MEDS: ALLOPURINOL 300 MG TABLET PO SCH (08:22)
[2018-09-09] MEDS: CYANOCOBALAMIN 500 MCG TABLET PO SCH (08:22)
[2018-09-09] MEDS: BISOPROLOL 5 MG TABLET PO SCH (08:22)
[2018-09-09] MEDS ORDERED: CALCITRIOL 0.25 MCG CAPSULE PO SCH (09:00)
[2018-09-09] MEDS: ENOXAPARIN 80 MG/0.8 ML SYRINGE SUBCUT SCH (10:20)
[2018-09-09] MEDS: SODIUM CHLORIDE 0.9% 1,000 ML IV SCH (11:22)
[2018-09-09] MEDS: INSULIN GLARGINE 100 UNIT/ML SUBCUT SCH (22:42)
[2018-09-09] MEDS: ATORVASTATIN 40 MG TABLET PO SCH (22:42)
[2018-09-09] MEDS: FLUTICASONE 50 MCG NASAL SPRAY 16 GM BOTTLE BOTH NARES SCH (22:42)
[2018-09-09] MEDS: GABAPENTIN 600 MG TABLET PO SCH (22:42)
[2018-09-10 05:05] LABS: Basophils # 0.1 10*3/uL (0.0-0.2); Basophils % 1.1 % (0.0-0.8); Eosinophils # 0.3 10*3/uL (0.0-0.87); Eosinophils % 3.6 % (0.00-10.9); Hematocrit 33.1 VOL% (42.0-52.0); Hemoglobin 10.1 GM/DL (14.0-18.0); Immature Granulocytes % 0.8 %; Immature Granulocytes Absolute 0.08 #; Lymphocytes # 1.2 10*3/uL (1.4-4.0); Lymphocytes % 12.8 % (21.2-54.2); Mean Corpuscular HGB Conc 30.5 GM/DL (32-36); Mean Corpuscular Hemoglobin 31 PG (27-34); Mean Corpuscular Volume 100.3 FL (87-102); Mean Platelet Volume 10.3 FL (9.6-12.0); Monocytes # 0.6 10*3/uL (0.11-0.8); Monocytes % 6.3 % (1.7-12.7); NRBC # 0.03 10*3/uL; Neutrophils # 7.2 10*3/uL (1.4-7.4); Neutrophils % 75.4 % (38.7-73.9); Platelet Count 244 T/CUMM (130-400); Red Cell Distribution Width 15.6 % (9.3-17.3); White Blood Count 9.5 T/CUMM (4-12)
[2018-09-10 05:56] LABS: Osmolality,Calculated 279.8 MOS/KG (273-304); Potassium 4.9 MMOL/L (3.5-5.1)
[2018-09-10] MEDS: INSULIN LISPRO 100 UNIT/ML SUBCUT SCH ×3 (08:36→15:47)
[2018-09-10] MEDS: SEVELAMER CARBONATE 800 MG TABLET PO SCH ×3 (08:36→17:07)
[2018-09-10] MEDS: PANTOPRAZOLE 40 MG TABLET PO SCH (08:36)
[2018-09-10] MEDS: ALLOPURINOL 300 MG TABLET PO SCH (08:36)
[2018-09-10] MEDS: ASPIRIN 325 MG TABLET PO SCH (08:36)
[2018-09-10] MEDS: CYANOCOBALAMIN 500 MCG TABLET PO SCH (08:36)
[2018-09-10] MEDS: POLYCARBOPHIL 625 MG TABLET PO SCH (08:36)
[2018-09-10] MEDS: MIDODRINE 5 MG TABLET PO SCH ×2 (08:36→14:55)
[2018-09-10] MEDS: FERROUS SULFATE 325 MG TABLET PO SCH (08:38)
[2018-09-10] MEDS: ISOSORBIDE MONONITRATE 30 MG TABLET PO SCH (08:38)
[2018-09-10] MEDS: ENOXAPARIN 80 MG/0.8 ML SYRINGE SUBCUT SCH (09:00)
[2018-09-10] MEDS: DILTIAZEM CD 180 MG CAPSULE PO SCH (13:41)
[2018-09-10] MEDS: BISOPROLOL 5 MG TABLET PO SCH (13:42)
[2018-09-10 15:53] VITALS: BP 103/77
[2018-09-10] MEDS ORDERED: APIXABAN 2.5 MG TABLET PO SCH (21:00)
== END 2018-09-10 17:40 | disposition home health service (06) | DRG 64 ==
LOC: EDUNIT# → EDBD → N.ED 11:42 → N.EDINP 14:01 → SUATTDRO 14:01 → N.2W 15:08 → N.5E 16:52
PROVIDERS: ADMIT Internal Medicine; ATTEND Family Medicine

== ENCOUNTER 2018-11-03 14:16 | Inpatient (IN) ==
[2018-11-03] MEDS ORDERED: VANCOMYCIN INJ 1,500 MG in SODIUM CHLORIDE 0.9% 250 ML IV STA (15:18)
[2018-11-03] MEDS ORDERED: VANCOMYCIN INJ 1,500 MG in SODIUM CHLORIDE 0.9% 500 ML IV STA (15:22)
[2018-11-03 15:59] LABS: Basophils # 0.1 10*3/uL (0.0-0.2); Basophils % 0.5 % (0.0-0.8); Eosinophils # 0.4 10*3/uL (0.0-0.87); Eosinophils % 3.3 % (0.00-10.9); Hemoglobin 12.1 GM/DL (14.0-18.0); Immature Granulocytes % 0.6 %; Immature Granulocytes Absolute 0.07 #; Lymphocytes % 8.1 % (21.2-54.2); Mean Corpuscular HGB Conc 30.3 GM/DL (32-36); Mean Corpuscular Hemoglobin 27 PG (27-34); Mean Corpuscular Volume 90.3 FL (87-102); Mean Platelet Volume 10.5 FL (9.6-12.0); Monocytes # 0.6 10*3/uL (0.11-0.8); Neutrophils # 10.1 10*3/uL (1.4-7.4); Neutrophils % 82.5 % (38.7-73.9); Platelet Count 229 T/CUMM (130-400); Red Blood Count 4.43 MC/CUMM (3.8-5.5); Red Cell Distribution Width 15.9 % (9.3-17.3); White Blood Count 12.3 T/CUMM (4-12)
[2018-11-03 16:16] LABS: Albumin 2.5 G/DL (3.4-5.0); Bilirubin,Total 0.7 MG/DL (0.2-1.0); Calcium 8.3 MG/DL (8.5-10.1); Osmolality,Calculated 271.1 MOS/KG (273-304); Potassium 4.8 MMOL/L (3.5-5.1); Total Protein 7.4 G/DL (6.4-8.3)
[2018-11-03 16:17] LABS: Lactic Acid 1.9 MMOL/L (0.4-2.0)
[2018-11-03] MEDS ORDERED: ACETAMINOPHEN 325 MG TABLET PO PRN (18:31)
[2018-11-03] MEDS ORDERED: ONDANSETRON 4 MG/2 ML VIAL IV PRN (18:31)
[2018-11-03] MEDS ORDERED: DEXTROSE 50% 25 GM/50 ML VIAL IV PRN (18:31)
[2018-11-03] MEDS ORDERED: MORPHINE 4 MG/1 ML VIAL IV PRN (18:31)
[2018-11-03] MEDS ORDERED: DOCUSATE/SENNA 50-8.6 MG TABLET PO PRN (18:31)
[2018-11-03] MEDS ORDERED: DOCUSATE SODIUM 100 MG CAPSULE PO PRN (18:31)
[2018-11-03] MEDS ORDERED: GLUCAGON 1 MG VIAL IM PRN (18:31)
[2018-11-03] MEDS: GABAPENTIN 600 MG TABLET PO SCH (21:08)
[2018-11-03] MEDS: MIDODRINE 5 MG TABLET PO SCH (21:08)
[2018-11-03] MEDS: ATORVASTATIN 40 MG TABLET PO SCH (21:09)
[2018-11-03] MEDS: FERROUS SULFATE 325 MG TABLET PO SCH (21:09)
[2018-11-03] MEDS: PIPERACILLIN/TAZOBACTAM 3,375 MG in SODIUM CHLORIDE 0.9% 100 ML IV SCH (21:12)
[2018-11-03] MEDS: INSULIN GLARGINE 100 UNIT/ML SUBCUT SCH (22:08)
[2018-11-03] MEDS: INSULIN LISPRO 100 UNIT/ML SUBCUT SCH (22:08)
[2018-11-04] MEDS: FLUTICASONE 50 MCG NASAL SPRAY 16 GM BOTTLE BOTH NARES SCH ×2 (04:39→21:25)
[2018-11-04 05:39] LABS: Basophils # 0.1 10*3/uL (0.0-0.2); Basophils % 0.8 % (0.0-0.8); Eosinophils # 0.6 10*3/uL (0.0-0.87); Eosinophils % 6.4 % (0.00-10.9); Immature Granulocytes % 0.5 %; Immature Granulocytes Absolute 0.05 #; Lymphocytes # 1.2 10*3/uL (1.4-4.0); Lymphocytes % 12.3 % (21.2-54.2); Mean Corpuscular HGB Conc 28.9 GM/DL (32-36); Mean Corpuscular Hemoglobin 27 PG (27-34); Mean Corpuscular Volume 92.2 FL (87-102); Mean Platelet Volume 10.3 FL (9.6-12.0); Monocytes # 0.8 10*3/uL (0.11-0.8); Monocytes % 7.9 % (1.7-12.7); Neutrophils # 6.8 10*3/uL (1.4-7.4); Neutrophils % 72.1 % (38.7-73.9); Platelet Count 210 T/CUMM (130-400); Red Blood Count 3.71 MC/CUMM (3.8-5.5); Red Cell Distribution Width 15.8 % (9.3-17.3); White Blood Count 9.5 T/CUMM (4-12)
[2018-11-04 05:55] LABS: Hematocrit 33.8 VOL% (42.0-52.0)
[2018-11-04 06:05] LABS: Hypochromasia 1+; Microcytosis 1+; Ovalocytes Few
[2018-11-04 06:06] LABS: Platelet Estimate Normal
[2018-11-04 06:08] LABS: Calcium 7.1 MG/DL (8.5-10.1); Osmolality,Calculated 286.3 MOS/KG (273-304); Potassium 4.2 MMOL/L (3.5-5.1)
[2018-11-04 06:12] LABS: Cholesterol < 50 MG/DL (50-200); HDL Cholesterol 45 MG/DL (40-60); Risk Ratio 1.11; Triglycerides 105 MG/DL (2-150)
[2018-11-04] MEDS ORDERED: VANCOMYCIN INJ 1,750 MG in SODIUM CHLORIDE 0.9% 500 ML IV ONE (09:00)
[2018-11-04] MEDS ORDERED: VANCOMYCIN INJ 1,000 MG in SODIUM CHLORIDE 0.9% 250 ML IV SCH (09:00)
[2018-11-04] MEDS ORDERED: PANTOPRAZOLE 40 MG TABLET PO SCH (09:00)
[2018-11-04] MEDS ORDERED: VANCOMYCIN INJ 750 MG in SODIUM CHLORIDE 0.9% 250 ML IV PRN (09:00)
[2018-11-04] MEDS: SEVELAMER CARBONATE 800 MG TABLET PO SCH ×3 (10:17→16:24)
[2018-11-04] MEDS: ASPIRIN CHEW 81 MG TABLET PO SCH (10:17)
[2018-11-04] MEDS: INSULIN LISPRO 100 UNIT/ML SUBCUT SCH ×4 (10:17→21:22)
[2018-11-04] MEDS: DILTIAZEM CD 180 MG CAPSULE PO SCH (10:17)
[2018-11-04] MEDS: ISOSORBIDE MONONITRATE 30 MG TABLET PO SCH (10:18)
[2018-11-04] MEDS: MIDODRINE 5 MG TABLET PO SCH ×3 (10:18→21:21)
[2018-11-04] MEDS: CYANOCOBALAMIN 500 MCG TABLET PO SCH (10:18)
[2018-11-04] MEDS: CALCITRIOL 0.25 MCG CAPSULE PO SCH (10:18)
[2018-11-04] MEDS: FERROUS SULFATE 325 MG TABLET PO SCH ×2 (10:18→21:25)
[2018-11-04] MEDS: BISOPROLOL 5 MG TABLET PO SCH (10:18)
[2018-11-04] MEDS: POLYCARBOPHIL 625 MG TABLET PO SCH (10:18)
[2018-11-04] MEDS: PANTOPRAZOLE 40 MG TABLET PO SCH (10:18)
[2018-11-04] MEDS: PIPERACILLIN/TAZOBACTAM 3,375 MG in SODIUM CHLORIDE 0.9% 100 ML IV SCH ×2 (10:19→21:22)
[2018-11-04] MEDS: ALLOPURINOL 300 MG TABLET PO SCH (10:19)
[2018-11-04] MEDS ORDERED: LIDOCAINE 1% 20 ML VIAL ONE (12:11)
[2018-11-04] MEDS ORDERED: PROPOFOL 200 MG/20 ML VIAL IV ONE (13:10)
[2018-11-04] MEDS ORDERED: MIDAZOLAM 2 MG/2 ML VIAL ONE (13:11)
[2018-11-04] MEDS ORDERED: fentaNYL 100 MCG/2 ML VIAL ONE (13:11)
[2018-11-04] MEDS ORDERED: KETAMINE 500 MG/10 ML VIAL ONE (13:11)
[2018-11-04] MEDS ORDERED: GLUCAGON 1 MG VIAL IM PRN (13:55)
[2018-11-04] MEDS ORDERED: DEXTROSE 50% 25 GM/50 ML VIAL IV PRN (13:55)
[2018-11-04] MEDS: GABAPENTIN 600 MG TABLET PO SCH (21:21)
[2018-11-04] MEDS: ATORVASTATIN 40 MG TABLET PO SCH (21:21)
[2018-11-04] MEDS: INSULIN GLARGINE 100 UNIT/ML SUBCUT SCH (21:21)
[2018-11-05 05:24] LABS: Calcium 7.1 MG/DL (8.5-10.1); Osmolality,Calculated 292.1 MOS/KG (273-304); Potassium 5.1 MMOL/L (3.5-5.1)
[2018-11-05 05:55] LABS: Basophils # 0.1 10*3/uL (0.0-0.2); Basophils % 0.6 % (0.0-0.8); Eosinophils # 0.5 10*3/uL (0.0-0.87); Eosinophils % 5.1 % (0.00-10.9); Hematocrit 34.2 VOL% (42.0-52.0); Immature Granulocytes % 0.4 %; Immature Granulocytes Absolute 0.04 #; Lymphocytes # 1.1 10*3/uL (1.4-4.0); Lymphocytes % 11.8 % (21.2-54.2); Mean Corpuscular HGB Conc 28.9 GM/DL (32-36); Mean Corpuscular Hemoglobin 27 PG (27-34); Mean Corpuscular Volume 92.7 FL (87-102); Mean Platelet Volume 10.8 FL (9.6-12.0); Monocytes # 0.7 10*3/uL (0.11-0.8); Monocytes % 6.8 % (1.7-12.7); Neutrophils # 7.1 10*3/uL (1.4-7.4); Neutrophils % 75.3 % (38.7-73.9); Platelet Count 229 T/CUMM (130-400); Red Blood Count 3.69 MC/CUMM (3.8-5.5); Red Cell Distribution Width 15.9 % (9.3-17.3); White Blood Count 9.5 T/CUMM (4-12)
[2018-11-05 05:58] LABS: Hemoglobin 9.9 GM/DL (14.0-18.0)
[2018-11-05 06:15] LABS: Hypochromasia 1+
[2018-11-05 06:16] LABS: Microcytosis Slight; Platelet Estimate Adequate
[2018-11-05] MEDS: ISOSORBIDE MONONITRATE 30 MG TABLET PO SCH (09:07)
[2018-11-05] MEDS: BISOPROLOL 5 MG TABLET PO SCH (09:07)
[2018-11-05] MEDS: POLYCARBOPHIL 625 MG TABLET PO SCH (09:07)
[2018-11-05] MEDS: FERROUS SULFATE 325 MG TABLET PO SCH ×2 (09:07→20:57)
[2018-11-05] MEDS: SEVELAMER CARBONATE 800 MG TABLET PO SCH ×3 (09:07→17:06)
[2018-11-05] MEDS: MIDODRINE 5 MG TABLET PO SCH ×3 (09:07→20:57)
[2018-11-05] MEDS: ASPIRIN CHEW 81 MG TABLET PO SCH (09:07)
[2018-11-05] MEDS: DILTIAZEM CD 180 MG CAPSULE PO SCH (09:08)
[2018-11-05] MEDS: ALLOPURINOL 300 MG TABLET PO SCH (09:08)
[2018-11-05] MEDS: CYANOCOBALAMIN 500 MCG TABLET PO SCH (09:08)
[2018-11-05] MEDS: PANTOPRAZOLE 40 MG TABLET PO SCH (09:08)
[2018-11-05] MEDS: PIPERACILLIN/TAZOBACTAM 3,375 MG in SODIUM CHLORIDE 0.9% 100 ML IV SCH (09:09)
[2018-11-05] MEDS: INSULIN LISPRO 100 UNIT/ML SUBCUT SCH ×4 (09:09→20:57)
[2018-11-05] MEDS ORDERED: VANCOMYCIN INJ 750 MG in SODIUM CHLORIDE 0.9% 250 ML IV ONE (17:00)
[2018-11-05] MEDS: INSULIN GLARGINE 100 UNIT/ML SUBCUT SCH (20:57)
[2018-11-05] MEDS: ATORVASTATIN 40 MG TABLET PO SCH (20:57)
[2018-11-05] MEDS: GABAPENTIN 600 MG TABLET PO SCH (20:57)
[2018-11-06] MEDS: FLUTICASONE 50 MCG NASAL SPRAY 16 GM BOTTLE BOTH NARES SCH (01:00)
[2018-11-06] MEDS: PIPERACILLIN/TAZOBACTAM 3,375 MG in SODIUM CHLORIDE 0.9% 100 ML IV SCH ×2 (01:43→13:26)
[2018-11-06 05:18] LABS: Basophils # 0.1 10*3/uL (0.0-0.2); Basophils % 0.8 % (0.0-0.8); Eosinophils # 0.5 10*3/uL (0.0-0.87); Eosinophils % 5.1 % (0.00-10.9); Hemoglobin 9.8 GM/DL (14.0-18.0); Immature Granulocytes % 0.5 %; Immature Granulocytes Absolute 0.04 #; Lymphocytes # 0.9 10*3/uL (1.4-4.0); Lymphocytes % 10.4 % (21.2-54.2); Mean Corpuscular HGB Conc 28.8 GM/DL (32-36); Mean Corpuscular Hemoglobin 27 PG (27-34); Mean Corpuscular Volume 93.2 FL (87-102); Mean Platelet Volume 10.4 FL (9.6-12.0); Monocytes # 0.6 10*3/uL (0.11-0.8); Monocytes % 6.5 % (1.7-12.7); Neutrophils # 6.7 10*3/uL (1.4-7.4); Neutrophils % 76.7 % (38.7-73.9); Platelet Count 234 T/CUMM (130-400); Red Blood Count 3.65 MC/CUMM (3.8-5.5); Red Cell Distribution Width 15.7 % (9.3-17.3); White Blood Count 8.8 T/CUMM (4-12)
[2018-11-06 05:22] LABS: Calcium 7.4 MG/DL (8.5-10.1); Potassium 4.3 MMOL/L (3.5-5.1)
[2018-11-06] MEDS: INSULIN LISPRO 100 UNIT/ML SUBCUT SCH ×2 (08:38→13:10)
[2018-11-06] MEDS: SEVELAMER CARBONATE 800 MG TABLET PO SCH ×2 (08:54→13:26)
[2018-11-06] MEDS: MIDODRINE 5 MG TABLET PO SCH ×2 (08:54→15:41)
[2018-11-06] MEDS: PANTOPRAZOLE 40 MG TABLET PO SCH (08:54)
[2018-11-06] MEDS: ASPIRIN CHEW 81 MG TABLET PO SCH (08:54)
[2018-11-06] MEDS: CALCITRIOL 0.25 MCG CAPSULE PO SCH (08:54)
[2018-11-06] MEDS: FERROUS SULFATE 325 MG TABLET PO SCH (08:54)
[2018-11-06] MEDS: BISOPROLOL 5 MG TABLET PO SCH (08:54)
[2018-11-06] MEDS: DILTIAZEM CD 180 MG CAPSULE PO SCH (08:55)
[2018-11-06] MEDS: ISOSORBIDE MONONITRATE 30 MG TABLET PO SCH (08:55)
[2018-11-06] MEDS: POLYCARBOPHIL 625 MG TABLET PO SCH (08:55)
[2018-11-06] MEDS: ALLOPURINOL 300 MG TABLET PO SCH (08:55)
[2018-11-06] MEDS: CYANOCOBALAMIN 500 MCG TABLET PO SCH (08:59)
[2018-11-06 14:45] VITALS: BP 110/72
== END 2018-11-06 16:40 | disposition home health service (06) | DRG 628 ==
LOC: N.ED 14:16 → SUATTDRO 17:12 → N.EDINP 17:12 → N.5E 18:00
PROVIDERS: ADMIT Internal Medicine; ATTEND Internal Medicine Infectious Disease

== ENCOUNTER 2019-12-24 10:10 | Inpatient (IN) ==
[2019-12-24 11:40] LABS: Basophils % 0.2 % (0.0-0.8); Hematocrit 32.3 VOL% (42.0-52.0); Hemoglobin 9.8 GM/DL (14.0-18.0); Immature Granulocytes % 0.8 %; Immature Granulocytes Absolute 0.18 #; Lymphocytes % 4.3 % (21.2-54.2); Mean Corpuscular HGB Conc 30.3 GM/DL (32-36); Mean Corpuscular Volume 99.4 FL (87-102); Mean Platelet Volume 10.8 FL (9.6-12.0); Monocytes % 4.9 % (1.7-12.7); Neutrophils % 89.8 % (38.7-73.9); Platelet Count 148 T/CUMM (130-400); Red Blood Count 3.25 MC/CUMM (3.8-5.5); Red Cell Distribution Width 19.2 % (9.3-17.3); White Blood Count 23.3 T/CUMM (4-12)
[2019-12-24 12:02] LABS: Alanine Aminotransferase < 6 U/L (16-61); Alkaline Phosphatase 153 U/L (45-117); Aspartate Amino Transferase 11 U/L (0-37); Blood Urea Nitrogen 28 MG/DL (7-18); Calcium 8.3 MG/DL (8.5-10.1); Estimated Glom Filtration Rate 18 ML/MIN; Glucose 112 MG/DL (74-106); Osmolality,Calculated 289.1 MOS/KG (273-304); Total Protein 5.7 G/DL (6.4-8.3)
[2019-12-24 12:08] LABS: Band Neutrophils 26 % (0-10); Lymphocytes 13 % (20-55); Platelet Estimate Adequate; Segmented Neutrophils 58 % (50-85); Total Cells Counted 100
[2019-12-24 12:09] LABS: Anisocytosis 2+; Macrocytosis 1+
[2019-12-24] MEDS ORDERED: LEVOFLOXACIN INJ 500 MG in PREMIX 1 EACH IV STA (12:23)
[2019-12-24] MEDS ORDERED: SODIUM CHLORIDE 0.9% 500 ML IV STA (12:35)
[2019-12-24] MEDS ORDERED: DOCUSATE/SENNA 50-8.6 MG TABLET PO PRN (13:47)
[2019-12-24] MEDS ORDERED: MIDODRINE 5 MG TABLET PO ONE (14:15)
[2019-12-24] MEDS: calcitrioL 0.25 MCG CAPSULE PO SCH (17:53)
[2019-12-24] MEDS: SEVELAMER CARBONATE 800 MG TABLET PO SCH (17:54)
[2019-12-24] MEDS: FERROUS SULFATE 325 MG TABLET PO SCH (17:54)
[2019-12-24] MEDS: INSULIN LISPRO 100 UNIT/ML SUBCUT SCH (17:55)
[2019-12-24] MEDS: MIDODRINE 5 MG TABLET PO SCH (20:55)
[2019-12-24] MEDS: APIXABAN 2.5 MG TABLET PO SCH (20:55)
[2019-12-24] MEDS: FLUTICASONE 50 MCG NASAL SPRAY 16 GM BOTTLE BOTH NARES SCH (20:55)
[2019-12-24] MEDS: GABAPENTIN 600 MG TABLET PO SCH (20:56)
[2019-12-24] MEDS: ATORVASTATIN 40 MG TABLET PO SCH (20:56)
[2019-12-25 06:42] LABS: Basophils % 0.2 % (0.0-0.8); Eosinophils # 0.2 10*3/uL (0.0-0.87); Eosinophils % 1.5 % (0.00-10.9); Hematocrit 26.7 VOL% (42.0-52.0); Hemoglobin 8.2 GM/DL (14.0-18.0); Immature Granulocytes % 0.7 %; Immature Granulocytes Absolute 0.08 #; Lymphocytes # 0.9 10*3/uL (1.4-4.0); Lymphocytes % 8.4 % (21.2-54.2); Mean Corpuscular HGB Conc 30.7 GM/DL (32-36); Mean Corpuscular Volume 97.4 FL (87-102); Mean Platelet Volume 11.2 FL (9.6-12.0); Monocytes % 4.7 % (1.7-12.7); Neutrophils % 84.5 % (38.7-73.9); Platelet Count 122 T/CUMM (130-400); Red Blood Count 2.74 MC/CUMM (3.8-5.5); Red Cell Distribution Width 18.7 % (9.3-17.3)
[2019-12-25 07:16] LABS: Alanine Aminotransferase < 6 U/L (16-61); Albumin 1.6 G/DL (3.4-5.0); Alkaline Phosphatase 128 U/L (45-117); Aspartate Amino Transferase 10 U/L (0-37); Blood Urea Nitrogen 49 MG/DL (7-18); Calcium 8.3 MG/DL (8.5-10.1); Estimated Glom Filtration Rate 15 ML/MIN; Glucose 81 MG/DL (74-106); Total Protein 4.8 G/DL (6.4-8.3)
[2019-12-25] MEDS: INSULIN LISPRO 100 UNIT/ML SUBCUT SCH ×3 (08:08→17:29)
[2019-12-25] MEDS: ASPIRIN CHEW 81 MG TABLET PO SCH (08:48)
[2019-12-25] MEDS: FERROUS SULFATE 325 MG TABLET PO SCH ×2 (08:48→16:24)
[2019-12-25] MEDS: POLYCARBOPHIL 625 MG TABLET PO SCH (08:48)
[2019-12-25] MEDS: MIDODRINE 5 MG TABLET PO SCH ×4 (08:48→21:02)
[2019-12-25] MEDS: DILTIAZEM CD 180 MG CAPSULE PO SCH (08:49)
[2019-12-25] MEDS: BISOPROLOL 5 MG TABLET PO SCH (08:50)
[2019-12-25] MEDS: SEVELAMER CARBONATE 800 MG TABLET PO SCH ×3 (08:50→16:24)
[2019-12-25] MEDS: allopurinoL 300 MG TABLET PO SCH (08:50)
[2019-12-25] MEDS: APIXABAN 2.5 MG TABLET PO SCH ×2 (08:50→21:02)
[2019-12-25] MEDS: PANTOPRAZOLE 40 MG TABLET PO SCH (08:50)
[2019-12-25] MEDS: CYANOCOBALAMIN 500 MCG TABLET PO SCH (08:50)
[2019-12-25] MEDS ORDERED: ISOSORBIDE MONONITRATE 30 MG TABLET PO SCH (09:00)
[2019-12-25] MEDS ORDERED: NON-FORMULARY MEDICATION (Omeprazole 40 MG) PO SCH (09:00)
[2019-12-25] MEDS: MEROPENEM 500 MG in SODIUM CHLORIDE 0.9% 100 ML IV SCH (13:43)
[2019-12-25] MEDS ORDERED: NYSTATIN/TRIAMCINOLONE CREAM 15 GM TUBE TOP SCH (14:09)
[2019-12-25] MEDS: ONDANSETRON 4 MG/2 ML VIAL IV PRN (16:24)
[2019-12-25] MEDS ORDERED: PROMETHAZINE 25 MG/1 ML VIAL IM ONE (17:51)
[2019-12-25] MEDS: ALBUTEROL/IPRATROPIUM 3 ML NEB RESP TX SCH (19:22)
[2019-12-25] MEDS: FLUTICASONE 50 MCG NASAL SPRAY 16 GM BOTTLE BOTH NARES SCH (20:30)
[2019-12-25] MEDS: ATORVASTATIN 40 MG TABLET PO SCH (21:02)
[2019-12-25] MEDS: GABAPENTIN 600 MG TABLET PO SCH (21:02)
[2019-12-25] MEDS: DESITIN 4OZ/NYSTATIN 15 GRAM MIXTURE PASTE TOP SCH (21:06)
[2019-12-26] MEDS: ALBUTEROL/IPRATROPIUM 3 ML NEB RESP TX SCH ×7 (00:02→23:35)
[2019-12-26 05:53] LABS: Basophils % 0.3 % (0.0-0.8); Eosinophils # 0.1 10*3/uL (0.0-0.87); Eosinophils % 0.6 % (0.00-10.9); Hematocrit 28.4 VOL% (42.0-52.0); Hemoglobin 8.3 GM/DL (14.0-18.0); Immature Granulocytes % 0.6 %; Immature Granulocytes Absolute 0.05 #; Lymphocytes # 0.7 10*3/uL (1.4-4.0); Lymphocytes % 8.6 % (21.2-54.2); Mean Corpuscular HGB Conc 29.2 GM/DL (32-36); Mean Corpuscular Volume 101.8 FL (87-102); Mean Platelet Volume 11.3 FL (9.6-12.0); Monocytes % 5.9 % (1.7-12.7); Platelet Count 131 T/CUMM (130-400); Red Blood Count 2.79 MC/CUMM (3.8-5.5); Red Cell Distribution Width 18.3 % (9.3-17.3); White Blood Count 7.8 T/CUMM (4-12)
[2019-12-26] MEDS: ONDANSETRON 4 MG/2 ML VIAL IV PRN (06:22)
[2019-12-26 06:35] LABS: Calcium 8.6 MG/DL (8.5-10.1); Osmolality,Calculated 278.7 MOS/KG (273-304)
[2019-12-26] MEDS: INSULIN LISPRO 100 UNIT/ML SUBCUT SCH ×3 (07:22→16:11)
[2019-12-26] MEDS: FERROUS SULFATE 325 MG TABLET PO SCH ×2 (07:22→16:11)
[2019-12-26] MEDS: SEVELAMER CARBONATE 800 MG TABLET PO SCH ×3 (07:22→16:11)
[2019-12-26] MEDS: DORNASE ALFA 2.5 MG/2.5 ML VIAL RESP TX SCH (07:54)
[2019-12-26] MEDS ORDERED: LEVOFLOXACIN INJ 500 MG in PREMIX 1 EACH IV SCH (09:00)
[2019-12-26] MEDS: ASPIRIN CHEW 81 MG TABLET PO SCH (10:34)
[2019-12-26] MEDS: MIDODRINE 5 MG TABLET PO SCH ×3 (10:35→23:10)
[2019-12-26] MEDS: CYANOCOBALAMIN 500 MCG TABLET PO SCH (10:35)
[2019-12-26] MEDS: BISOPROLOL 5 MG TABLET PO SCH (10:35)
[2019-12-26] MEDS: POLYCARBOPHIL 625 MG TABLET PO SCH (10:35)
[2019-12-26] MEDS: DILTIAZEM CD 180 MG CAPSULE PO SCH (10:35)
[2019-12-26] MEDS: APIXABAN 2.5 MG TABLET PO SCH ×2 (10:35→23:09)
[2019-12-26] MEDS: PANTOPRAZOLE 40 MG TABLET PO SCH (10:35)
[2019-12-26] MEDS: allopurinoL 300 MG TABLET PO SCH (10:36)
[2019-12-26] MEDS: MEROPENEM 500 MG in SODIUM CHLORIDE 0.9% 100 ML IV SCH (11:22)
[2019-12-26] MEDS: DESITIN 4OZ/NYSTATIN 15 GRAM MIXTURE PASTE TOP SCH ×2 (11:22→23:11)
[2019-12-26] MEDS: DEXTROSE 5% NACL 0.45% 1,000 ML IV SCH (13:43)
[2019-12-26] MEDS: GABAPENTIN 600 MG TABLET PO SCH (23:10)
[2019-12-26] MEDS: ATORVASTATIN 40 MG TABLET PO SCH (23:10)
[2019-12-26] MEDS: FLUTICASONE 50 MCG NASAL SPRAY 16 GM BOTTLE BOTH NARES SCH (23:13)
[2019-12-27] MEDS: ALBUTEROL/IPRATROPIUM 3 ML NEB RESP TX SCH ×5 (03:27→19:06)
[2019-12-27 04:43] LABS: Basophils % 0.4 % (0.0-0.8); Eosinophils # 0.1 10*3/uL (0.0-0.87); Eosinophils % 2.3 % (0.00-10.9); Hematocrit 26.5 VOL% (42.0-52.0); Immature Granulocytes % 0.4 %; Immature Granulocytes Absolute 0.02 #; Lymphocytes # 0.8 10*3/uL (1.4-4.0); Lymphocytes % 16.4 % (21.2-54.2); Mean Corpuscular HGB Conc 30.2 GM/DL (32-36); Mean Corpuscular Volume 98.1 FL (87-102); Mean Platelet Volume 11.3 FL (9.6-12.0); Monocytes % 6.8 % (1.7-12.7); Neutrophils % 73.7 % (38.7-73.9); Platelet Count 107 T/CUMM (130-400); Red Cell Distribution Width 17.8 % (9.3-17.3); White Blood Count 4.8 T/CUMM (4-12)
[2019-12-27 05:30] LABS: Calcium 8.4 MG/DL (8.5-10.1); Osmolality,Calculated 288.4 MOS/KG (273-304)
[2019-12-27] MEDS: DORNASE ALFA 2.5 MG/2.5 ML VIAL RESP TX SCH (08:00)
[2019-12-27] MEDS: DILTIAZEM CD 180 MG CAPSULE PO SCH (12:07)
[2019-12-27] MEDS: ASPIRIN CHEW 81 MG TABLET PO SCH (12:07)
[2019-12-27] MEDS: INSULIN LISPRO 100 UNIT/ML SUBCUT SCH ×3 (12:07→17:59)
[2019-12-27] MEDS: FERROUS SULFATE 325 MG TABLET PO SCH ×2 (12:07→17:58)
[2019-12-27] MEDS: SEVELAMER CARBONATE 800 MG TABLET PO SCH ×3 (12:07→17:59)
[2019-12-27] MEDS: APIXABAN 2.5 MG TABLET PO SCH ×2 (12:08→23:57)
[2019-12-27] MEDS: calcitrioL 0.25 MCG CAPSULE PO SCH (12:08)
[2019-12-27] MEDS: PANTOPRAZOLE 40 MG TABLET PO SCH (12:08)
[2019-12-27] MEDS: POLYCARBOPHIL 625 MG TABLET PO SCH (12:08)
[2019-12-27] MEDS: MIDODRINE 5 MG TABLET PO SCH ×3 (12:08→23:58)
[2019-12-27] MEDS: BISOPROLOL 5 MG TABLET PO SCH (12:09)
[2019-12-27] MEDS: allopurinoL 300 MG TABLET PO SCH (12:09)
[2019-12-27] MEDS: CYANOCOBALAMIN 500 MCG TABLET PO SCH (12:09)
[2019-12-27] MEDS: MEROPENEM 500 MG in SODIUM CHLORIDE 0.9% 100 ML IV SCH (12:41)
[2019-12-27] MEDS: DESITIN 4OZ/NYSTATIN 15 GRAM MIXTURE PASTE TOP SCH ×2 (12:43→23:58)
[2019-12-27] MEDS ORDERED: EPOETIN ALFA 10,000 UNIT/1 ML VIAL IV PRN (16:37)
[2019-12-27] MEDS: DEXTROSE 5% NACL 0.45% 1,000 ML IV SCH (18:00)
[2019-12-27] MEDS: MENTHOL/ZINC OXIDE OINT 71 GM JAR TOP SCH ×2 (18:05→23:58)
[2019-12-27] MEDS: ATORVASTATIN 40 MG TABLET PO SCH (23:57)
[2019-12-27] MEDS: FLUTICASONE 50 MCG NASAL SPRAY 16 GM BOTTLE BOTH NARES SCH (23:57)
[2019-12-27] MEDS: GABAPENTIN 600 MG TABLET PO SCH (23:58)
[2019-12-28] MEDS: ALBUTEROL/IPRATROPIUM 3 ML NEB RESP TX SCH ×8 (00:12→23:28)
[2019-12-28 05:29] LABS: Basophils % 0.6 % (0.0-0.8); Eosinophils # 0.1 10*3/uL (0.0-0.87); Eosinophils % 3.6 % (0.00-10.9); Hematocrit 24.9 VOL% (42.0-52.0); Hemoglobin 7.6 GM/DL (14.0-18.0); Immature Granulocytes % 0.6 %; Immature Granulocytes Absolute 0.02 #; Lymphocytes # 0.7 10*3/uL (1.4-4.0); Mean Corpuscular HGB Conc 30.5 GM/DL (32-36); Mean Corpuscular Volume 96.1 FL (87-102); Mean Platelet Volume 10.7 FL (9.6-12.0); Monocytes % 6.6 % (1.7-12.7); Neutrophils % 69.6 % (38.7-73.9); Platelet Count 93 T/CUMM (130-400); Red Blood Count 2.59 MC/CUMM (3.8-5.5); Red Cell Distribution Width 17.2 % (9.3-17.3); White Blood Count 3.6 T/CUMM (4-12)
[2019-12-28 05:51] LABS: Calcium 8.2 MG/DL (8.5-10.1); Osmolality,Calculated 292.4 MOS/KG (273-304)
[2019-12-28 06:05] LABS: Anisocytosis 1+; Eosinophils 3 % (0-10); Lymphocytes 24 % (20-55); Platelet Estimate Decreased; Segmented Neutrophils 65 % (50-85); Total Cells Counted 100
[2019-12-28 06:06] LABS: Hypochromasia 1+; Macrocytosis Slight
[2019-12-28 06:08] LABS: Ovalocytes Slight; Stomatocytes Slight; Target Cells Few
[2019-12-28] MEDS: DORNASE ALFA 2.5 MG/2.5 ML VIAL RESP TX SCH (07:13)
[2019-12-28] MEDS: PANTOPRAZOLE 40 MG TABLET PO SCH (08:06)
[2019-12-28] MEDS: POLYCARBOPHIL 625 MG TABLET PO SCH (08:06)
[2019-12-28] MEDS: INSULIN LISPRO 100 UNIT/ML SUBCUT SCH ×3 (08:06→16:37)
[2019-12-28] MEDS: MIDODRINE 5 MG TABLET PO SCH ×3 (08:06→23:01)
[2019-12-28] MEDS: APIXABAN 2.5 MG TABLET PO SCH ×2 (08:06→23:02)
[2019-12-28] MEDS: allopurinoL 300 MG TABLET PO SCH (08:06)
[2019-12-28] MEDS: BISOPROLOL 5 MG TABLET PO SCH (08:06)
[2019-12-28] MEDS: DILTIAZEM CD 180 MG CAPSULE PO SCH (08:06)
[2019-12-28] MEDS: CYANOCOBALAMIN 500 MCG TABLET PO SCH (08:06)
[2019-12-28] MEDS: ASPIRIN CHEW 81 MG TABLET PO SCH (08:06)
[2019-12-28] MEDS: SEVELAMER CARBONATE 800 MG TABLET PO SCH ×3 (11:49→16:42)
[2019-12-28] MEDS: FERROUS SULFATE 325 MG TABLET PO SCH ×2 (11:49→16:57)
[2019-12-28] MEDS: DEXTROSE 5% NACL 0.45% 1,000 ML IV SCH (16:32)
[2019-12-28] MEDS: MEROPENEM 500 MG in SODIUM CHLORIDE 0.9% 100 ML IV SCH (16:43)
[2019-12-28] MEDS: DESITIN 4OZ/NYSTATIN 15 GRAM MIXTURE PASTE TOP SCH ×2 (16:44→23:04)
[2019-12-28] MEDS: MENTHOL/ZINC OXIDE OINT 71 GM JAR TOP SCH ×2 (16:57→23:01)
[2019-12-28] MEDS: GABAPENTIN 600 MG TABLET PO SCH (23:01)
[2019-12-28] MEDS: ATORVASTATIN 40 MG TABLET PO SCH (23:02)
[2019-12-28] MEDS: ACETAMINOPHEN 325 MG TABLET PO PRN (23:02)
[2019-12-28] MEDS: FLUTICASONE 50 MCG NASAL SPRAY 16 GM BOTTLE BOTH NARES SCH (23:11)
[2019-12-29] MEDS: ALBUTEROL/IPRATROPIUM 3 ML NEB RESP TX SCH ×5 (03:25→20:13)
[2019-12-29 05:06] LABS: Basophils % 0.6 % (0.0-0.8); Eosinophils # 0.1 10*3/uL (0.0-0.87); Eosinophils % 3.9 % (0.00-10.9); Hematocrit 26.7 VOL% (42.0-52.0); Hemoglobin 8.2 GM/DL (14.0-18.0); Immature Granulocytes % 0.6 %; Immature Granulocytes Absolute 0.02 #; Lymphocytes # 0.7 10*3/uL (1.4-4.0); Lymphocytes % 23.4 % (21.2-54.2); Mean Corpuscular HGB Conc 30.7 GM/DL (32-36); Mean Corpuscular Volume 97.4 FL (87-102); Mean Platelet Volume 10.8 FL (9.6-12.0); Monocytes % 9.1 % (1.7-12.7); Neutrophils % 62.4 % (38.7-73.9); Platelet Count 109 T/CUMM (130-400); Red Blood Count 2.74 MC/CUMM (3.8-5.5); Red Cell Distribution Width 16.8 % (9.3-17.3); White Blood Count 3.1 T/CUMM (4-12)
[2019-12-29 05:32] LABS: Calcium 8.3 MG/DL (8.5-10.1); Osmolality,Calculated 281.4 MOS/KG (273-304)
[2019-12-29] MEDS: DORNASE ALFA 2.5 MG/2.5 ML VIAL RESP TX SCH (07:15)
[2019-12-29] MEDS: INSULIN LISPRO 100 UNIT/ML SUBCUT SCH ×3 (12:06→16:42)
[2019-12-29] MEDS: ASPIRIN CHEW 81 MG TABLET PO SCH (12:06)
[2019-12-29] MEDS: SEVELAMER CARBONATE 800 MG TABLET PO SCH ×3 (12:06→16:19)
[2019-12-29] MEDS: FERROUS SULFATE 325 MG TABLET PO SCH ×2 (12:06→16:19)
[2019-12-29] MEDS: MENTHOL/ZINC OXIDE OINT 71 GM JAR TOP SCH ×2 (12:07→22:03)
[2019-12-29] MEDS: POLYCARBOPHIL 625 MG TABLET PO SCH (12:07)
[2019-12-29] MEDS: DILTIAZEM CD 180 MG CAPSULE PO SCH (12:07)
[2019-12-29] MEDS: MIDODRINE 5 MG TABLET PO SCH ×3 (12:07→22:04)
[2019-12-29] MEDS: APIXABAN 2.5 MG TABLET PO SCH ×2 (12:07→22:04)
[2019-12-29] MEDS: allopurinoL 300 MG TABLET PO SCH (12:09)
[2019-12-29] MEDS: DESITIN 4OZ/NYSTATIN 15 GRAM MIXTURE PASTE TOP SCH ×2 (12:09→22:05)
[2019-12-29] MEDS: calcitrioL 0.25 MCG CAPSULE PO SCH (12:09)
[2019-12-29] MEDS: PANTOPRAZOLE 40 MG TABLET PO SCH (12:09)
[2019-12-29] MEDS: BISOPROLOL 5 MG TABLET PO SCH (12:09)
[2019-12-29] MEDS: CYANOCOBALAMIN 500 MCG TABLET PO SCH (12:09)
[2019-12-29] MEDS: MEROPENEM 500 MG in SODIUM CHLORIDE 0.9% 100 ML IV SCH (12:55)
[2019-12-29] MEDS: ATORVASTATIN 40 MG TABLET PO SCH (22:03)
[2019-12-29] MEDS: GABAPENTIN 600 MG TABLET PO SCH (22:04)
[2019-12-30] MEDS: ALBUTEROL/IPRATROPIUM 3 ML NEB RESP TX SCH ×7 (01:54→23:45)
[2019-12-30 05:35] LABS: Basophils % 1.4 % (0.0-0.8); Eosinophils # 0.2 10*3/uL (0.0-0.87); Eosinophils % 6.8 % (0.00-10.9); Hematocrit 30.8 VOL% (42.0-52.0); Hemoglobin 9.4 GM/DL (14.0-18.0); Immature Granulocytes % 0.7 %; Immature Granulocytes Absolute 0.02 #; Lymphocytes # 0.7 10*3/uL (1.4-4.0); Lymphocytes % 25.1 % (21.2-54.2); Mean Corpuscular HGB Conc 30.5 GM/DL (32-36); Mean Corpuscular Volume 97.5 FL (87-102); Mean Platelet Volume 10.7 FL (9.6-12.0); Monocytes % 10.5 % (1.7-12.7); Neutrophils % 55.5 % (38.7-73.9); Platelet Count 143 T/CUMM (130-400); Red Blood Count 3.16 MC/CUMM (3.8-5.5)
[2019-12-30 06:09] LABS: Calcium 8.1 MG/DL (8.5-10.1); Osmolality,Calculated 284.4 MOS/KG (273-304)
[2019-12-30 06:15] LABS: Eosinophils 6 % (0-10); Hypochromasia 1+; Lymphocytes 30 % (20-55); Platelet Estimate Adequate; Segmented Neutrophils 60 % (50-85); Total Cells Counted 100
[2019-12-30] MEDS: DORNASE ALFA 2.5 MG/2.5 ML VIAL RESP TX SCH (07:50)
[2019-12-30] MEDS ORDERED: MIDAZOLAM 2 MG/2 ML VIAL IV ONE (08:48)
[2019-12-30] MEDS ORDERED: fentaNYL 100 MCG/2 ML VIAL IV ONE (08:48)
[2019-12-30] MEDS ORDERED: DIAZEPAM 5 MG TABLET PO ONE (08:48)
[2019-12-30] MEDS: FLUTICASONE 50 MCG NASAL SPRAY 16 GM BOTTLE BOTH NARES SCH ×2 (08:54→22:32)
[2019-12-30] MEDS ORDERED: SODIUM CHLORIDE 0.45% 1,000 ML IV SCH (09:00)
[2019-12-30] MEDS: SEVELAMER CARBONATE 800 MG TABLET PO SCH ×3 (09:58→17:30)
[2019-12-30] MEDS: FERROUS SULFATE 325 MG TABLET PO SCH ×2 (09:58→17:30)
[2019-12-30] MEDS: INSULIN LISPRO 100 UNIT/ML SUBCUT SCH ×3 (09:58→16:58)
[2019-12-30] MEDS: MIDODRINE 5 MG TABLET PO SCH ×3 (09:59→22:31)
[2019-12-30] MEDS: DILTIAZEM CD 180 MG CAPSULE PO SCH (09:59)
[2019-12-30] MEDS: ASPIRIN CHEW 81 MG TABLET PO SCH (09:59)
[2019-12-30] MEDS: POLYCARBOPHIL 625 MG TABLET PO SCH (09:59)
[2019-12-30] MEDS: PANTOPRAZOLE 40 MG TABLET PO SCH (09:59)
[2019-12-30] MEDS: APIXABAN 2.5 MG TABLET PO SCH ×2 (09:59→22:31)
[2019-12-30] MEDS: CYANOCOBALAMIN 500 MCG TABLET PO SCH (10:00)
[2019-12-30] MEDS: allopurinoL 300 MG TABLET PO SCH (10:00)
[2019-12-30] MEDS: BISOPROLOL 5 MG TABLET PO SCH (10:00)
[2019-12-30] MEDS: MEROPENEM 500 MG in SODIUM CHLORIDE 0.9% 100 ML IV SCH (10:12)
[2019-12-30] MEDS: MENTHOL/ZINC OXIDE OINT 71 GM JAR TOP SCH ×2 (10:40→22:32)
[2019-12-30] MEDS: DESITIN 4OZ/NYSTATIN 15 GRAM MIXTURE PASTE TOP SCH ×2 (10:40→22:32)
[2019-12-30] MEDS ORDERED: HEPARIN/NACL 0.9% 2 UNITS/ML 2,000 ML IV ONE (10:55)
[2019-12-30] MEDS ORDERED: fentaNYL 100 MCG/2 ML VIAL ONE (10:56)
[2019-12-30] MEDS ORDERED: MIDAZOLAM 2 MG/2 ML VIAL ONE (10:56)
[2019-12-30 11:06] LABS: INR 1.1; PT Patient Result 11.4 SECS (9.6-12.2)
[2019-12-30] MEDS ORDERED: TUBERCULIN SKIN TEST 0.1 ML SYRINGE INTRADERM ONE (12:45)
[2019-12-30] MEDS: GABAPENTIN 600 MG TABLET PO SCH (22:31)
[2019-12-30] MEDS: ACETAMINOPHEN 325 MG TABLET PO PRN (22:31)
[2019-12-30] MEDS: ATORVASTATIN 40 MG TABLET PO SCH (22:31)
[2019-12-31] MEDS: ALBUTEROL/IPRATROPIUM 3 ML NEB RESP TX SCH ×5 (03:17→19:36)
[2019-12-31 05:52] LABS: Basophils % 0.9 % (0.0-0.8); Eosinophils # 0.2 10*3/uL (0.0-0.87); Eosinophils % 6.8 % (0.00-10.9); Hematocrit 27.8 VOL% (42.0-52.0); Hemoglobin 8.5 GM/DL (14.0-18.0); Immature Granulocytes % 0.9 %; Immature Granulocytes Absolute 0.03 #; Lymphocytes # 0.8 10*3/uL (1.4-4.0); Lymphocytes % 23.1 % (21.2-54.2); Mean Corpuscular HGB Conc 30.6 GM/DL (32-36); Mean Corpuscular Volume 96.2 FL (87-102); Mean Platelet Volume 10.7 FL (9.6-12.0); Monocytes % 9.6 % (1.7-12.7); Neutrophils % 58.7 % (38.7-73.9); Platelet Count 165 T/CUMM (130-400); Red Blood Count 2.89 MC/CUMM (3.8-5.5); White Blood Count 3.2 T/CUMM (4-12)
[2019-12-31 06:16] LABS: Calcium 7.9 MG/DL (8.5-10.1); Osmolality,Calculated 286.4 MOS/KG (273-304)
[2019-12-31] MEDS: DORNASE ALFA 2.5 MG/2.5 ML VIAL RESP TX SCH (07:10)
[2019-12-31] MEDS: calcitrioL 0.25 MCG CAPSULE PO SCH (08:58)
[2019-12-31] MEDS: BISOPROLOL 5 MG TABLET PO SCH (08:58)
[2019-12-31] MEDS: SEVELAMER CARBONATE 800 MG TABLET PO SCH ×3 (08:58→18:19)
[2019-12-31] MEDS: allopurinoL 300 MG TABLET PO SCH (08:59)
[2019-12-31] MEDS: MIDODRINE 5 MG TABLET PO SCH ×3 (08:59→21:10)
[2019-12-31] MEDS: POLYCARBOPHIL 625 MG TABLET PO SCH (08:59)
[2019-12-31] MEDS: CYANOCOBALAMIN 500 MCG TABLET PO SCH (08:59)
[2019-12-31] MEDS: DESITIN 4OZ/NYSTATIN 15 GRAM MIXTURE PASTE TOP SCH ×2 (09:00→21:11)
[2019-12-31] MEDS: FERROUS SULFATE 325 MG TABLET PO SCH ×2 (09:00→18:19)
[2019-12-31] MEDS: ASPIRIN CHEW 81 MG TABLET PO SCH (09:00)
[2019-12-31] MEDS: DILTIAZEM CD 180 MG CAPSULE PO SCH (09:00)
[2019-12-31] MEDS: MENTHOL/ZINC OXIDE OINT 71 GM JAR TOP SCH ×2 (09:00→21:11)
[2019-12-31] MEDS: PANTOPRAZOLE 40 MG TABLET PO SCH (09:00)
[2019-12-31] MEDS: INSULIN LISPRO 100 UNIT/ML SUBCUT SCH ×2 (09:13→12:23)
[2019-12-31] MEDS: MEROPENEM 500 MG in SODIUM CHLORIDE 0.9% 100 ML IV SCH (09:19)
[2019-12-31] MEDS: HEPARIN 5,000 UNIT/1 ML VIAL SUBCUT SCH ×2 (11:19→18:43)
[2019-12-31] MEDS ORDERED: GLUCOSE GEL 15 GM TUBE PO PRN (12:25)
[2019-12-31] MEDS ORDERED: GLUCOSE GEL 15 GM TUBE PO ONE (12:25)
[2019-12-31] MEDS ORDERED: DEXTROSE 10% 250 ML IV ONE (13:00)
[2019-12-31] MEDS ORDERED: DEXTROSE 10% 250 ML BAG IV PRN (13:00)
[2019-12-31] MEDS: GABAPENTIN 600 MG TABLET PO SCH (21:10)
[2019-12-31] MEDS: ACETAMINOPHEN 325 MG TABLET PO PRN (21:10)
[2019-12-31] MEDS: ATORVASTATIN 40 MG TABLET PO SCH (21:10)
[2020-01-01] MEDS: ALBUTEROL/IPRATROPIUM 3 ML NEB RESP TX SCH ×7 (00:07→22:38)
[2020-01-01] MEDS: FLUTICASONE 50 MCG NASAL SPRAY 16 GM BOTTLE BOTH NARES SCH ×2 (00:42→21:01)
[2020-01-01] MEDS: ACETAMINOPHEN 325 MG TABLET PO PRN (02:25)
[2020-01-01] MEDS: HEPARIN 5,000 UNIT/1 ML VIAL SUBCUT SCH ×3 (02:26→18:16)
[2020-01-01] MEDS: DORNASE ALFA 2.5 MG/2.5 ML VIAL RESP TX SCH (07:18)
[2020-01-01] MEDS: POLYCARBOPHIL 625 MG TABLET PO SCH (08:27)
[2020-01-01] MEDS: MIDODRINE 5 MG TABLET PO SCH ×3 (08:27→21:01)
[2020-01-01] MEDS: ASPIRIN CHEW 81 MG TABLET PO SCH (08:27)
[2020-01-01] MEDS: SEVELAMER CARBONATE 800 MG TABLET PO SCH ×3 (08:28→17:22)
[2020-01-01] MEDS: PANTOPRAZOLE 40 MG TABLET PO SCH (08:28)
[2020-01-01] MEDS: CYANOCOBALAMIN 500 MCG TABLET PO SCH (08:28)
[2020-01-01] MEDS: FERROUS SULFATE 325 MG TABLET PO SCH ×2 (08:28→17:22)
[2020-01-01] MEDS: allopurinoL 300 MG TABLET PO SCH (08:28)
[2020-01-01] MEDS: MENTHOL/ZINC OXIDE OINT 71 GM JAR TOP SCH ×2 (08:29→21:01)
[2020-01-01] MEDS: DESITIN 4OZ/NYSTATIN 15 GRAM MIXTURE PASTE TOP SCH ×2 (08:29→21:01)
[2020-01-01] MEDS: BISOPROLOL 5 MG TABLET PO SCH (09:29)
[2020-01-01] MEDS: DILTIAZEM CD 180 MG CAPSULE PO SCH (09:29)
[2020-01-01] MEDS ORDERED: ALBUMIN 25% 25 GM in PREMIX 1 EACH IV ONE (10:30)
[2020-01-01] MEDS: MEROPENEM 500 MG in SODIUM CHLORIDE 0.9% 100 ML IV SCH (14:09)
[2020-01-01] MEDS: ATORVASTATIN 40 MG TABLET PO SCH (21:01)
[2020-01-01] MEDS: GABAPENTIN 600 MG TABLET PO SCH (21:02)
[2020-01-02] MEDS: ALBUTEROL/IPRATROPIUM 3 ML NEB RESP TX SCH ×6 (02:36→23:45)
[2020-01-02] MEDS: ACETAMINOPHEN 325 MG TABLET PO PRN (02:38)
[2020-01-02] MEDS: HEPARIN 5,000 UNIT/1 ML VIAL SUBCUT SCH ×3 (02:39→17:29)
[2020-01-02] MEDS: DORNASE ALFA 2.5 MG/2.5 ML VIAL RESP TX SCH (07:23)
[2020-01-02] MEDS: DILTIAZEM CD 180 MG CAPSULE PO SCH (08:40)
[2020-01-02] MEDS: MIDODRINE 5 MG TABLET PO SCH ×3 (08:40→21:22)
[2020-01-02] MEDS: allopurinoL 300 MG TABLET PO SCH (08:41)
[2020-01-02] MEDS: FERROUS SULFATE 325 MG TABLET PO SCH ×2 (08:41→17:29)
[2020-01-02] MEDS: SEVELAMER CARBONATE 800 MG TABLET PO SCH ×3 (08:41→17:29)
[2020-01-02] MEDS: PANTOPRAZOLE 40 MG TABLET PO SCH (08:42)
[2020-01-02] MEDS: BISOPROLOL 5 MG TABLET PO SCH (08:42)
[2020-01-02] MEDS: CYANOCOBALAMIN 500 MCG TABLET PO SCH (08:42)
[2020-01-02] MEDS: ASPIRIN CHEW 81 MG TABLET PO SCH (08:42)
[2020-01-02] MEDS: POLYCARBOPHIL 625 MG TABLET PO SCH (08:42)
[2020-01-02] MEDS: MENTHOL/ZINC OXIDE OINT 71 GM JAR TOP SCH ×2 (10:25→21:23)
[2020-01-02] MEDS: DESITIN 4OZ/NYSTATIN 15 GRAM MIXTURE PASTE TOP SCH ×2 (10:25→21:23)
[2020-01-02] MEDS: FLUTICASONE 50 MCG NASAL SPRAY 16 GM BOTTLE BOTH NARES SCH (21:21)
[2020-01-02] MEDS: GABAPENTIN 600 MG TABLET PO SCH (21:22)
[2020-01-02] MEDS: ATORVASTATIN 40 MG TABLET PO SCH (21:22)
[2020-01-03] MEDS: HEPARIN 5,000 UNIT/1 ML VIAL SUBCUT SCH ×3 (02:22→17:47)
[2020-01-03] MEDS: ALBUTEROL/IPRATROPIUM 3 ML NEB RESP TX SCH ×6 (04:03→23:45)
[2020-01-03 05:07] LABS: Basophils % 0.7 % (0.0-0.8); Eosinophils # 0.2 10*3/uL (0.0-0.87); Eosinophils % 4.9 % (0.00-10.9); Hematocrit 25.9 VOL% (42.0-52.0); Hemoglobin 7.9 GM/DL (14.0-18.0); Immature Granulocytes % 1.3 %; Immature Granulocytes Absolute 0.06 #; Lymphocytes # 1.1 10*3/uL (1.4-4.0); Lymphocytes % 23.7 % (21.2-54.2); Mean Corpuscular HGB Conc 30.5 GM/DL (32-36); Mean Corpuscular Volume 97.7 FL (87-102); Mean Platelet Volume 10.4 FL (9.6-12.0); Monocytes % 6.9 % (1.7-12.7); Neutrophils % 62.5 % (38.7-73.9); Platelet Count 248 T/CUMM (130-400); Red Blood Count 2.65 MC/CUMM (3.8-5.5); Red Cell Distribution Width 17.3 % (9.3-17.3); White Blood Count 4.5 T/CUMM (4-12)
[2020-01-03 05:44] LABS: Calcium 8.1 MG/DL (8.5-10.1); Osmolality,Calculated 283.3 MOS/KG (273-304)
[2020-01-03] MEDS ORDERED: ceFAZolin 1,000 MG in SYRINGE 1 EACH IV ONE (06:00)
[2020-01-03] MEDS: DORNASE ALFA 2.5 MG/2.5 ML VIAL RESP TX SCH (07:50)
[2020-01-03] MEDS: FERROUS SULFATE 325 MG TABLET PO SCH ×2 (07:56→16:08)
[2020-01-03] MEDS: SEVELAMER CARBONATE 800 MG TABLET PO SCH ×3 (07:56→16:08)
[2020-01-03] MEDS ORDERED: LIDOCAINE 1%/EPI INJ 20 ML VIAL ONE (08:31)
[2020-01-03] MEDS ORDERED: BUPIVACAINE MPF 0.25% 30 ML VIAL ONE (08:36)
[2020-01-03] MEDS: PANTOPRAZOLE 40 MG TABLET PO SCH (11:30)
[2020-01-03] MEDS: calcitrioL 0.25 MCG CAPSULE PO SCH (11:30)
[2020-01-03] MEDS: DILTIAZEM CD 180 MG CAPSULE PO SCH (11:30)
[2020-01-03] MEDS: POLYCARBOPHIL 625 MG TABLET PO SCH (11:30)
[2020-01-03] MEDS: ASPIRIN CHEW 81 MG TABLET PO SCH (11:30)
[2020-01-03] MEDS: MIDODRINE 5 MG TABLET PO SCH ×3 (11:30→21:34)
[2020-01-03] MEDS: CYANOCOBALAMIN 500 MCG TABLET PO SCH (11:31)
[2020-01-03] MEDS: allopurinoL 300 MG TABLET PO SCH (11:31)
[2020-01-03] MEDS: DESITIN 4OZ/NYSTATIN 15 GRAM MIXTURE PASTE TOP SCH ×2 (11:31→21:34)
[2020-01-03] MEDS: BISOPROLOL 5 MG TABLET PO SCH (11:31)
[2020-01-03] MEDS: MENTHOL/ZINC OXIDE OINT 71 GM JAR TOP SCH ×2 (11:32→21:34)
[2020-01-03] MEDS: ATORVASTATIN 40 MG TABLET PO SCH (21:35)
[2020-01-03] MEDS: GABAPENTIN 600 MG TABLET PO SCH (21:35)
[2020-01-03] MEDS: FLUTICASONE 50 MCG NASAL SPRAY 16 GM BOTTLE BOTH NARES SCH (21:35)
[2020-01-04] MEDS: HEPARIN 5,000 UNIT/1 ML VIAL SUBCUT SCH ×2 (02:46→09:30)
[2020-01-04] MEDS: ALBUTEROL/IPRATROPIUM 3 ML NEB RESP TX SCH ×3 (03:35→10:34)
[2020-01-04 05:05] LABS: Basophils % 0.7 % (0.0-0.8); Eosinophils # 0.3 10*3/uL (0.0-0.87); Hematocrit 26.1 VOL% (42.0-52.0); Hemoglobin 7.8 GM/DL (14.0-18.0); Immature Granulocytes % 1.4 %; Immature Granulocytes Absolute 0.06 #; Lymphocytes % 22.6 % (21.2-54.2); Mean Corpuscular HGB Conc 29.9 GM/DL (32-36); Mean Corpuscular Volume 99.2 FL (87-102); Mean Platelet Volume 10.3 FL (9.6-12.0); Monocytes % 9.5 % (1.7-12.7); Neutrophils % 59.8 % (38.7-73.9); Platelet Count 273 T/CUMM (130-400); Red Blood Count 2.63 MC/CUMM (3.8-5.5); Red Cell Distribution Width 17.6 % (9.3-17.3); White Blood Count 4.2 T/CUMM (4-12)
[2020-01-04] MEDS: DORNASE ALFA 2.5 MG/2.5 ML VIAL RESP TX SCH (08:03)
[2020-01-04] MEDS: FERROUS SULFATE 325 MG TABLET PO SCH (08:17)
[2020-01-04] MEDS: MIDODRINE 5 MG TABLET PO SCH (08:17)
[2020-01-04] MEDS: ASPIRIN CHEW 81 MG TABLET PO SCH (08:17)
[2020-01-04] MEDS: DILTIAZEM CD 180 MG CAPSULE PO SCH (08:17)
[2020-01-04] MEDS: MENTHOL/ZINC OXIDE OINT 71 GM JAR TOP SCH (08:18)
[2020-01-04] MEDS: DESITIN 4OZ/NYSTATIN 15 GRAM MIXTURE PASTE TOP SCH (08:18)
[2020-01-04] MEDS: SEVELAMER CARBONATE 800 MG TABLET PO SCH ×2 (08:18→13:48)
[2020-01-04] MEDS: CYANOCOBALAMIN 500 MCG TABLET PO SCH (08:18)
[2020-01-04] MEDS: POLYCARBOPHIL 625 MG TABLET PO SCH (08:18)
[2020-01-04] MEDS: PANTOPRAZOLE 40 MG TABLET PO SCH (08:18)
[2020-01-04] MEDS: BISOPROLOL 5 MG TABLET PO SCH (08:18)
[2020-01-04] MEDS: allopurinoL 300 MG TABLET PO SCH (08:18)
[2020-01-04 13:48] VITALS: BP 101/46
== END 2020-01-04 15:08 | disposition home health service (06) | DRG 981 ==
LOC: N.ED 10:10 → N.EDINP 13:41 → SUATTDRO 13:41 → N.5E 15:14
PROVIDERS: ADMIT Family Medicine; ATTEND Internal Medicine

== ENCOUNTER 2020-01-19 05:46 | Inpatient (IN) ==
[2020-01-19 06:31] LABS: Basophils % 0.2 % (0.0-0.8); Eosinophils % 0.2 % (0.00-10.9); Hematocrit 34.1 VOL% (42.0-52.0); Hemoglobin 10.3 GM/DL (14.0-18.0); Immature Granulocytes % 0.5 %; Immature Granulocytes Absolute 0.06 #; Lymphocytes # 1.7 10*3/uL (1.4-4.0); Lymphocytes % 14.4 % (21.2-54.2); Mean Corpuscular HGB Conc 30.2 GM/DL (32-36); Mean Corpuscular Volume 97.4 FL (87-102); Mean Platelet Volume 10.7 FL (9.6-12.0); Monocytes % 6.1 % (1.7-12.7); Neutrophils % 78.6 % (38.7-73.9); Platelet Count 177 T/CUMM (130-400); Red Cell Distribution Width 17.3 % (9.3-17.3); White Blood Count 12.1 T/CUMM (4-12)
[2020-01-19 06:48] LABS: Alanine Aminotransferase < 9 U/L (16-61); Albumin 1.7 G/DL (3.4-5.0); Alkaline Phosphatase 168 U/L (45-117); Aspartate Amino Transferase 14 U/L (0-37); Blood Urea Nitrogen 52 MG/DL (7-18); Calcium 8.6 MG/DL (8.5-10.1); Estimated Glom Filtration Rate 11 ML/MIN; Glucose 128 MG/DL (74-106); Osmolality,Calculated 290.7 MOS/KG (273-304); Total Protein 5.1 G/DL (6.4-8.3)
[2020-01-19] MEDS ORDERED: ACETAMINOPHEN 325 MG TABLET PO PRN (09:27)
[2020-01-19] MEDS ORDERED: ONDANSETRON 4 MG/2 ML VIAL IV PRN (09:27)
[2020-01-19] MEDS ORDERED: LACTULOSE 20 GM/30 ML UDCUP PO PRN (09:27)
[2020-01-19] MEDS: ALBUTEROL/IPRATROPIUM 3 ML NEB RESP TX SCH ×3 (13:45→19:20)
[2020-01-19] MEDS ORDERED: TUBERCULIN SKIN TEST 0.1 ML SYRINGE INTRADERM ONE (16:03)
[2020-01-20] MEDS: ALBUTEROL/IPRATROPIUM 3 ML NEB RESP TX SCH ×4 (01:12→19:36)
[2020-01-20 06:47] LABS: Basophils % 0.1 % (0.0-0.8); Eosinophils % 0.3 % (0.00-10.9); Hematocrit 27.1 VOL% (42.0-52.0); Hemoglobin 8.7 GM/DL (14.0-18.0); Immature Granulocytes % 0.3 %; Immature Granulocytes Absolute 0.02 #; Lymphocytes # 0.8 10*3/uL (1.4-4.0); Lymphocytes % 11.3 % (21.2-54.2); Mean Corpuscular HGB Conc 32.1 GM/DL (32-36); Mean Corpuscular Volume 93.4 FL (87-102); Platelet Count 142 T/CUMM (130-400); Red Cell Distribution Width 17.2 % (9.3-17.3); White Blood Count 7.2 T/CUMM (4-12)
[2020-01-20 07:02] LABS: Calcium 7.5 MG/DL (8.5-10.1); Osmolality,Calculated 284.5 MOS/KG (273-304)
[2020-01-20] MEDS: PANTOPRAZOLE 40 MG TABLET PO SCH (10:07)
[2020-01-20] MEDS ORDERED: DOCUSATE/SENNA 50-8.6 MG TABLET PO PRN (15:34)
[2020-01-20] MEDS ORDERED: DEXTROSE 10% 250 ML BAG IV PRN (15:41)
[2020-01-20] MEDS ORDERED: GLUCAGON 1 MG VIAL IM PRN (15:41)
[2020-01-20] MEDS: INSULIN LISPRO 100 UNIT/ML SUBCUT SCH (16:23)
[2020-01-20] MEDS: SEVELAMER CARBONATE 800 MG TABLET PO SCH (16:46)
[2020-01-20] MEDS ORDERED: ALUM/MAG/SIMETH/LIDO VISC 1:1 30 ML BOTTLE PO ONE (18:47)
[2020-01-20] MEDS ORDERED: ATORVASTATIN 40 MG TABLET PO SCH (21:00)
[2020-01-20] MEDS: FLUTICASONE 50 MCG NASAL SPRAY 16 GM BOTTLE BOTH NARES SCH (22:08)
[2020-01-20] MEDS: MIDODRINE 5 MG TABLET PO SCH (22:08)
[2020-01-20] MEDS: GABAPENTIN 600 MG TABLET PO SCH (22:09)
[2020-01-20] MEDS: FERROUS SULFATE 325 MG TABLET PO SCH (22:09)
[2020-01-20] MEDS: APIXABAN 2.5 MG TABLET PO SCH (22:09)
[2020-01-21] MEDS: ALBUTEROL/IPRATROPIUM 3 ML NEB RESP TX SCH ×4 (01:17→19:39)
[2020-01-21 06:21] LABS: Basophils % 0.4 % (0.0-0.8); Eosinophils # 0.1 10*3/uL (0.0-0.87); Eosinophils % 1.1 % (0.00-10.9); Hematocrit 28.9 VOL% (42.0-52.0); Hemoglobin 8.8 GM/DL (14.0-18.0); Immature Granulocytes % 0.7 %; Immature Granulocytes Absolute 0.04 #; Lymphocytes % 17.6 % (21.2-54.2); Mean Corpuscular HGB Conc 30.4 GM/DL (32-36); Mean Corpuscular Volume 96.7 FL (87-102); Mean Platelet Volume 10.3 FL (9.6-12.0); Neutrophils % 71.2 % (38.7-73.9); Platelet Count 156 T/CUMM (130-400); Red Blood Count 2.99 MC/CUMM (3.8-5.5); Red Cell Distribution Width 16.9 % (9.3-17.3); White Blood Count 5.5 T/CUMM (4-12)
[2020-01-21 06:27] LABS: Calcium 7.6 MG/DL (8.5-10.1); Osmolality,Calculated 280.5 MOS/KG (273-304)
[2020-01-21 06:32] LABS: Alanine Aminotransferase < 6 U/L (16-61); Albumin 1.3 G/DL (3.4-5.0); Alkaline Phosphatase 168 U/L (45-117); Aspartate Amino Transferase 12 U/L (0-37); Bilirubin,Indirect 0.3 MG/DL (0.0-1.0); Total Protein 4.2 G/DL (6.4-8.3)
[2020-01-21 07:21] LABS: Sedimentation Rate-Westergren 35 MM/HR (0-20)
[2020-01-21 07:41] LABS: Folate 7.8 NG/ML (5.4-24.0); Vitamin B12 > 2000 PG/ML (211-911)
[2020-01-21 09:15] LABS: Hemoglobin A1 (Alkaline) 97.3 % (96.5-98.5); Hemoglobin A2 (Alkaline) 2.7 % (1.5-3.5)
[2020-01-21] MEDS: MIDODRINE 5 MG TABLET PO SCH ×3 (09:25→21:46)
[2020-01-21] MEDS: ISOSORBIDE MONONITRATE 30 MG TABLET PO SCH (09:27)
[2020-01-21] MEDS: APIXABAN 2.5 MG TABLET PO SCH (09:29)
[2020-01-21] MEDS: PANTOPRAZOLE 40 MG TABLET PO SCH (09:32)
[2020-01-21] MEDS ORDERED: methylPREDNISolone SOD SUC 40 MG/1 ML VIAL IV ONE (12:00)
[2020-01-21] MEDS: SEVELAMER CARBONATE 800 MG TABLET PO SCH ×3 (12:26→16:57)
[2020-01-21] MEDS: calcitrioL 0.25 MCG CAPSULE PO SCH (12:26)
[2020-01-21] MEDS: CYANOCOBALAMIN 500 MCG TABLET PO SCH (12:30)
[2020-01-21] MEDS: allopurinoL 300 MG TABLET PO SCH (12:30)
[2020-01-21] MEDS: POLYCARBOPHIL 625 MG TABLET PO SCH (12:30)
[2020-01-21] MEDS: FERROUS SULFATE 325 MG TABLET PO SCH ×2 (12:30→21:46)
[2020-01-21] MEDS: BISOPROLOL 5 MG TABLET PO SCH (12:30)
[2020-01-21] MEDS: DILTIAZEM CD 180 MG CAPSULE PO SCH (12:30)
[2020-01-21] MEDS: ASPIRIN CHEW 81 MG TABLET PO SCH (12:30)
[2020-01-21] MEDS: INSULIN LISPRO 100 UNIT/ML SUBCUT SCH ×3 (12:31→17:08)
[2020-01-21] MEDS: PIPERACILLIN/TAZOBACTAM 3,375 MG in SODIUM CHLORIDE 0.9% 100 ML IV SCH (15:58)
[2020-01-21] MEDS ORDERED: PIPERACILLIN/TAZOBACTAM 3,375 MG in SODIUM CHLORIDE 0.9% 100 ML IV SCH (16:00)
[2020-01-21] MEDS: FLUTICASONE 50 MCG NASAL SPRAY 16 GM BOTTLE BOTH NARES SCH (21:47)
[2020-01-21] MEDS: DICLOFENAC 1% GEL 100 GM TUBE TOP SCH (21:47)
[2020-01-21] MEDS: GABAPENTIN 600 MG TABLET PO SCH (21:47)
[2020-01-22] MEDS: ALBUTEROL/IPRATROPIUM 3 ML NEB RESP TX SCH ×4 (01:18→19:43)
[2020-01-22] MEDS: PIPERACILLIN/TAZOBACTAM 3,375 MG in SODIUM CHLORIDE 0.9% 100 ML IV SCH ×2 (04:30→15:35)
[2020-01-22 07:00] LABS: Hematocrit 29.5 VOL% (42.0-52.0); Hemoglobin 9.1 GM/DL (14.0-18.0); Immature Granulocytes % 0.6 %; Immature Granulocytes Absolute 0.04 #; Lymphocytes # 0.7 10*3/uL (1.4-4.0); Lymphocytes % 11.4 % (21.2-54.2); Mean Corpuscular HGB Conc 30.8 GM/DL (32-36); Mean Corpuscular Volume 94.2 FL (87-102); Monocytes % 7.5 % (1.7-12.7); Neutrophils % 80.5 % (38.7-73.9); Platelet Count 201 T/CUMM (130-400); Red Blood Count 3.13 MC/CUMM (3.8-5.5); Red Cell Distribution Width 16.9 % (9.3-17.3); White Blood Count 6.4 T/CUMM (4-12)
[2020-01-22 07:17] LABS: Calcium 7.8 MG/DL (8.5-10.1)
[2020-01-22] MEDS ORDERED: LEVOFLOXACIN INJ 500 MG in PREMIX 1 EACH IV SCH (07:30)
[2020-01-22] MEDS: INSULIN LISPRO 100 UNIT/ML SUBCUT SCH ×3 (11:45→17:04)
[2020-01-22] MEDS: SEVELAMER CARBONATE 800 MG TABLET PO SCH ×3 (13:10→17:03)
[2020-01-22] MEDS: ISOSORBIDE MONONITRATE 30 MG TABLET PO SCH (13:11)
[2020-01-22] MEDS: allopurinoL 300 MG TABLET PO SCH (13:31)
[2020-01-22] MEDS: BISOPROLOL 5 MG TABLET PO SCH (13:31)
[2020-01-22] MEDS: CYANOCOBALAMIN 500 MCG TABLET PO SCH (13:32)
[2020-01-22] MEDS: ASPIRIN CHEW 81 MG TABLET PO SCH (13:32)
[2020-01-22] MEDS: MIDODRINE 5 MG TABLET PO SCH ×3 (13:32→20:57)
[2020-01-22] MEDS: FERROUS SULFATE 325 MG TABLET PO SCH ×2 (13:32→20:56)
[2020-01-22] MEDS: PANTOPRAZOLE 40 MG TABLET PO SCH (13:32)
[2020-01-22] MEDS: DICLOFENAC 1% GEL 100 GM TUBE TOP SCH ×3 (13:33→20:55)
[2020-01-22] MEDS: POLYCARBOPHIL 625 MG TABLET PO SCH (13:33)
[2020-01-22] MEDS: DILTIAZEM CD 180 MG CAPSULE PO SCH (13:33)
[2020-01-22] MEDS: FLUTICASONE 50 MCG NASAL SPRAY 16 GM BOTTLE BOTH NARES SCH (20:56)
[2020-01-22] MEDS: GABAPENTIN 600 MG TABLET PO SCH (20:56)
[2020-01-23] MEDS: ALBUTEROL/IPRATROPIUM 3 ML NEB RESP TX SCH ×4 (01:02→19:00)
[2020-01-23] MEDS: PIPERACILLIN/TAZOBACTAM 3,375 MG in SODIUM CHLORIDE 0.9% 100 ML IV SCH ×2 (04:32→16:17)
[2020-01-23 05:32] LABS: Basophils % 0.3 % (0.0-0.8); Eosinophils # 0.1 10*3/uL (0.0-0.87); Hematocrit 28.4 VOL% (42.0-52.0); Hemoglobin 8.7 GM/DL (14.0-18.0); Immature Granulocytes Absolute 0.04 #; Lymphocytes # 1.1 10*3/uL (1.4-4.0); Lymphocytes % 27.1 % (21.2-54.2); Mean Corpuscular HGB Conc 30.6 GM/DL (32-36); Mean Corpuscular Volume 95.6 FL (87-102); Mean Platelet Volume 10.6 FL (9.6-12.0); Neutrophils % 58.6 % (38.7-73.9); Platelet Count 135 T/CUMM (130-400); Red Blood Count 2.97 MC/CUMM (3.8-5.5); Red Cell Distribution Width 16.9 % (9.3-17.3); White Blood Count 3.9 T/CUMM (4-12)
[2020-01-23 05:56] LABS: Calcium 7.5 MG/DL (8.5-10.1); Osmolality,Calculated 276.7 MOS/KG (273-304)
[2020-01-23 06:23] LABS: Eosinophils 3 % (0-10); Lymphocytes 29 % (20-55); Segmented Neutrophils 63 % (50-85); Total Cells Counted 100
[2020-01-23 06:24] LABS: Anisocytosis 1+; Hypochromasia 1+; Platelet Estimate Adequate
[2020-01-23] MEDS: INSULIN LISPRO 100 UNIT/ML SUBCUT SCH ×3 (09:32→17:27)
[2020-01-23] MEDS: allopurinoL 300 MG TABLET PO SCH (09:34)
[2020-01-23] MEDS: MIDODRINE 5 MG TABLET PO SCH ×3 (09:34→21:35)
[2020-01-23] MEDS: FERROUS SULFATE 325 MG TABLET PO SCH ×2 (09:34→21:35)
[2020-01-23] MEDS: CYANOCOBALAMIN 500 MCG TABLET PO SCH (09:34)
[2020-01-23] MEDS: ASPIRIN CHEW 81 MG TABLET PO SCH (09:35)
[2020-01-23] MEDS: POLYCARBOPHIL 625 MG TABLET PO SCH (09:35)
[2020-01-23] MEDS: ISOSORBIDE MONONITRATE 30 MG TABLET PO SCH (09:35)
[2020-01-23] MEDS: SEVELAMER CARBONATE 800 MG TABLET PO SCH ×3 (09:35→17:25)
[2020-01-23] MEDS: DICLOFENAC 1% GEL 100 GM TUBE TOP SCH ×3 (09:35→21:35)
[2020-01-23] MEDS: DILTIAZEM CD 180 MG CAPSULE PO SCH (09:35)
[2020-01-23] MEDS: PANTOPRAZOLE 40 MG TABLET PO SCH (09:35)
[2020-01-23] MEDS: BISOPROLOL 5 MG TABLET PO SCH (09:36)
[2020-01-23] MEDS: GABAPENTIN 600 MG TABLET PO SCH (21:35)
[2020-01-23] MEDS: FLUTICASONE 50 MCG NASAL SPRAY 16 GM BOTTLE BOTH NARES SCH (21:35)
[2020-01-24] MEDS: ALBUTEROL/IPRATROPIUM 3 ML NEB RESP TX SCH ×2 (00:08→07:18)
[2020-01-24] MEDS: PIPERACILLIN/TAZOBACTAM 3,375 MG in SODIUM CHLORIDE 0.9% 100 ML IV SCH (03:40)
[2020-01-24 06:42] LABS: Basophils % 0.7 % (0.0-0.8); Eosinophils # 0.2 10*3/uL (0.0-0.87); Eosinophils % 3.5 % (0.00-10.9); Hematocrit 29.1 VOL% (42.0-52.0); Hemoglobin 8.8 GM/DL (14.0-18.0); Immature Granulocytes % 0.7 %; Immature Granulocytes Absolute 0.03 #; Lymphocytes # 1.1 10*3/uL (1.4-4.0); Lymphocytes % 24.5 % (21.2-54.2); Mean Corpuscular HGB Conc 30.2 GM/DL (32-36); Mean Platelet Volume 10.1 FL (9.6-12.0); Monocytes % 10.4 % (1.7-12.7); Neutrophils % 60.2 % (38.7-73.9); Platelet Count 177 T/CUMM (130-400); Red Blood Count 2.97 MC/CUMM (3.8-5.5); Red Cell Distribution Width 16.7 % (9.3-17.3); White Blood Count 4.3 T/CUMM (4-12)
[2020-01-24 06:53] LABS: Calcium 7.7 MG/DL (8.5-10.1); Osmolality,Calculated 285.3 MOS/KG (273-304)
[2020-01-24 08:02] VITALS: BP 109/51
[2020-01-24] MEDS: MIDODRINE 5 MG TABLET PO SCH (08:13)
[2020-01-24] MEDS: FERROUS SULFATE 325 MG TABLET PO SCH (08:13)
[2020-01-24] MEDS: CYANOCOBALAMIN 500 MCG TABLET PO SCH (08:14)
[2020-01-24] MEDS: PANTOPRAZOLE 40 MG TABLET PO SCH (08:14)
[2020-01-24] MEDS: SEVELAMER CARBONATE 800 MG TABLET PO SCH (08:14)
[2020-01-24] MEDS: calcitrioL 0.25 MCG CAPSULE PO SCH (08:14)
[2020-01-24] MEDS: POLYCARBOPHIL 625 MG TABLET PO SCH (08:14)
[2020-01-24] MEDS: allopurinoL 300 MG TABLET PO SCH (08:14)
[2020-01-24] MEDS: ISOSORBIDE MONONITRATE 30 MG TABLET PO SCH (08:15)
[2020-01-24] MEDS: BISOPROLOL 5 MG TABLET PO SCH (08:15)
[2020-01-24] MEDS: ASPIRIN CHEW 81 MG TABLET PO SCH (08:15)
[2020-01-24] MEDS: DILTIAZEM CD 180 MG CAPSULE PO SCH (08:15)
[2020-01-24] MEDS: INSULIN LISPRO 100 UNIT/ML SUBCUT SCH (08:18)
[2020-01-24] MEDS ORDERED: LEVOFLOXACIN INJ 250 MG in PREMIX 1 EACH IV SCH (08:30)
== END 2020-01-24 10:37 | DRG 177 ==
LOC: EDUNIT# → EDBD → N.ED 05:46 → N.EDINP 05:46 → N.2W 13:45 → N.2E 14:09 → SUATTDRO 01-21 14:58
PROVIDERS: ADMIT Internal Medicine; ATTEND Internal Medicine

== ENCOUNTER 2020-02-11 10:36 | Inpatient (IN) ==
[2020-02-11] MEDS ORDERED: SODIUM CHLORIDE 0.9% 250 ML IV STA (11:07)
[2020-02-11 11:30] LABS: Basophils # 0.1 10*3/uL (0.0-0.2); Basophils % 0.9 % (0.0-0.8); Eosinophils # 0.2 10*3/uL (0.0-0.87); Hematocrit 20.5 VOL% (42.0-52.0); Immature Granulocytes % 0.2 %; Immature Granulocytes Absolute 0.01 #; Lymphocytes # 0.9 10*3/uL (1.4-4.0); Lymphocytes % 17.2 % (21.2-54.2); Mean Corpuscular HGB Conc 30.7 GM/DL (32-36); Mean Platelet Volume 10.1 FL (9.6-12.0); Monocytes % 8.1 % (1.7-12.7); Neutrophils % 69.6 % (38.7-73.9); Platelet Count 182 T/CUMM (130-400); Red Blood Count 2.07 MC/CUMM (3.8-5.5); Red Cell Distribution Width 17.8 % (9.3-17.3); White Blood Count 5.3 T/CUMM (4-12)
[2020-02-11 11:35] LABS: Hemoglobin 6.3 GM/DL (14.0-18.0)
[2020-02-11 11:41] LABS: PT Patient Result 10.6 SECS (9.6-12.2); Partial Thromboplastin Time 28.9 SECS (20.8-36.0)
[2020-02-11 11:57] LABS: Alanine Aminotransferase 11 U/L (16-61); Albumin 1.7 G/DL (3.4-5.0); Alkaline Phosphatase 173 U/L (45-117); Aspartate Amino Transferase 16 U/L (0-37); Bilirubin,Total < 0.39 MG/DL (0.2-1.0); Blood Urea Nitrogen 21 MG/DL (7-18); Calcium 8.1 MG/DL (8.5-10.1); Estimated Glom Filtration Rate 29 ML/MIN; Glucose 119 MG/DL (74-106); Total Protein 4.3 G/DL (6.4-8.3)
[2020-02-11] MEDS ORDERED: SODIUM CHLORIDE 0.9% 1,000 ML IV PRN ×3 (13:07→13:57)
[2020-02-11] MEDS ORDERED: GLUCAGON 1 MG VIAL IM PRN ×2 (13:22→13:30)
[2020-02-11] MEDS ORDERED: ONDANSETRON 4 MG/2 ML VIAL IV PRN (13:22)
[2020-02-11] MEDS ORDERED: ACETAMINOPHEN 325 MG TABLET PO PRN (13:22)
[2020-02-11] MEDS ORDERED: DEXTROSE 50% 25 GM/50 ML VIAL IV PRN ×2 (13:22→13:30)
[2020-02-11] MEDS ORDERED: ALBUTEROL 2.5 MG/3 ML NEB RESP TX ONE (13:37)
[2020-02-11] MEDS ORDERED: DEXTROSE 10% 250 ML BAG IV PRN (14:23)
[2020-02-11] MEDS: MIDODRINE 5 MG TABLET PO SCH ×2 (15:23→20:53)
[2020-02-11] MEDS: calcitrioL 0.25 MCG CAPSULE PO SCH (15:23)
[2020-02-11] MEDS: FERROUS SULFATE 325 MG TABLET PO SCH (16:22)
[2020-02-11] MEDS: ALBUTEROL/IPRATROPIUM 3 ML NEB RESP TX SCH ×2 (16:33→18:53)
[2020-02-11] MEDS: SEVELAMER CARBONATE 800 MG TABLET PO SCH (18:14)
[2020-02-11] MEDS: INSULIN LISPRO 100 UNIT/ML SUBCUT SCH (18:14)
[2020-02-11 19:20] LABS: Hematocrit 31.3 VOL% (42.0-52.0); Hemoglobin 9.6 GM/DL (14.0-18.0)
[2020-02-11] MEDS: GABAPENTIN 600 MG TABLET PO SCH (20:54)
[2020-02-11] MEDS: ATORVASTATIN 40 MG TABLET PO SCH (20:54)
[2020-02-11] MEDS: APIXABAN 2.5 MG TABLET PO SCH (20:54)
[2020-02-11] MEDS: FLUTICASONE 50 MCG NASAL SPRAY 16 GM BOTTLE BOTH NARES SCH (20:59)
[2020-02-12 06:24] LABS: Basophils # 0.1 10*3/uL (0.0-0.2); Basophils % 1.6 % (0.0-0.8); Eosinophils # 0.3 10*3/uL (0.0-0.87); Eosinophils % 5.2 % (0.00-10.9); Hematocrit 30.3 VOL% (42.0-52.0); Hemoglobin 9.2 GM/DL (14.0-18.0); Immature Granulocytes % 0.4 %; Immature Granulocytes Absolute 0.02 #; Lymphocytes # 1.3 10*3/uL (1.4-4.0); Lymphocytes % 25.5 % (21.2-54.2); Mean Corpuscular HGB Conc 30.4 GM/DL (32-36); Mean Corpuscular Volume 99.7 FL (87-102); Mean Platelet Volume 10.1 FL (9.6-12.0); Monocytes % 9.4 % (1.7-12.7); Neutrophils % 57.9 % (38.7-73.9); Platelet Count 176 T/CUMM (130-400); Red Blood Count 3.04 MC/CUMM (3.8-5.5); Red Cell Distribution Width 16.8 % (9.3-17.3)
[2020-02-12] MEDS: ALBUTEROL/IPRATROPIUM 3 ML NEB RESP TX SCH ×4 (06:55→19:19)
[2020-02-12 07:06] LABS: Calcium 8.2 MG/DL (8.5-10.1); Osmolality,Calculated 272.8 MOS/KG (273-304)
[2020-02-12] MEDS: INSULIN LISPRO 100 UNIT/ML SUBCUT SCH ×3 (09:16→16:18)
[2020-02-12] MEDS: MIDODRINE 5 MG TABLET PO SCH ×3 (09:17→21:21)
[2020-02-12] MEDS: POLYCARBOPHIL 625 MG TABLET PO SCH (09:17)
[2020-02-12] MEDS: SEVELAMER CARBONATE 800 MG TABLET PO SCH ×3 (09:17→18:02)
[2020-02-12] MEDS: APIXABAN 2.5 MG TABLET PO SCH ×2 (09:18→21:21)
[2020-02-12] MEDS: PANTOPRAZOLE 40 MG TABLET PO SCH (09:18)
[2020-02-12] MEDS: FERROUS SULFATE 325 MG TABLET PO SCH ×2 (09:18→15:45)
[2020-02-12] MEDS: allopurinoL 300 MG TABLET PO SCH (09:18)
[2020-02-12] MEDS: ASPIRIN CHEW 81 MG TABLET PO SCH (09:18)
[2020-02-12] MEDS: ISOSORBIDE MONONITRATE 30 MG TABLET PO SCH (09:18)
[2020-02-12] MEDS: BISOPROLOL 5 MG TABLET PO SCH (09:18)
[2020-02-12] MEDS: DILTIAZEM CD 180 MG CAPSULE PO SCH (09:25)
[2020-02-12] MEDS: CYANOCOBALAMIN 100 MCG TABLET PO SCH (09:26)
[2020-02-12] MEDS ORDERED: ALBUMIN 25% 25 GM in PREMIX 1 EACH IV ONE ×4 (10:00→14:30)
[2020-02-12] MEDS: FLUTICASONE 50 MCG NASAL SPRAY 16 GM BOTTLE BOTH NARES SCH (21:18)
[2020-02-12] MEDS: GABAPENTIN 600 MG TABLET PO SCH (21:21)
[2020-02-12] MEDS: ATORVASTATIN 40 MG TABLET PO SCH (21:21)
[2020-02-13] MEDS: ALBUTEROL/IPRATROPIUM 3 ML NEB RESP TX SCH ×4 (07:15→19:31)
[2020-02-13] MEDS: DOCUSATE/SENNA 50-8.6 MG TABLET PO PRN (09:04)
[2020-02-13] MEDS: APIXABAN 2.5 MG TABLET PO SCH ×2 (09:05→22:21)
[2020-02-13] MEDS: ISOSORBIDE MONONITRATE 30 MG TABLET PO SCH (09:05)
[2020-02-13] MEDS: MIDODRINE 5 MG TABLET PO SCH ×3 (09:05→22:21)
[2020-02-13] MEDS: FERROUS SULFATE 325 MG TABLET PO SCH ×2 (09:05→16:22)
[2020-02-13] MEDS: PANTOPRAZOLE 40 MG TABLET PO SCH (09:06)
[2020-02-13] MEDS: allopurinoL 300 MG TABLET PO SCH (09:06)
[2020-02-13] MEDS: POLYCARBOPHIL 625 MG TABLET PO SCH (09:06)
[2020-02-13] MEDS: BISOPROLOL 5 MG TABLET PO SCH (09:06)
[2020-02-13] MEDS: SEVELAMER CARBONATE 800 MG TABLET PO SCH ×3 (09:06→16:21)
[2020-02-13] MEDS: ASPIRIN CHEW 81 MG TABLET PO SCH (09:06)
[2020-02-13] MEDS: INSULIN LISPRO 100 UNIT/ML SUBCUT SCH ×3 (09:07→16:11)
[2020-02-13] MEDS: CYANOCOBALAMIN 100 MCG TABLET PO SCH (09:07)
[2020-02-13] MEDS: DILTIAZEM CD 180 MG CAPSULE PO SCH (09:07)
[2020-02-13] MEDS: GABAPENTIN 600 MG TABLET PO SCH (22:21)
[2020-02-13] MEDS: ATORVASTATIN 40 MG TABLET PO SCH (22:21)
[2020-02-13] MEDS: FLUTICASONE 50 MCG NASAL SPRAY 16 GM BOTTLE BOTH NARES SCH (22:22)
[2020-02-14 04:50] LABS: Basophils # 0.1 10*3/uL (0.0-0.2); Basophils % 1.1 % (0.0-0.8); Eosinophils # 0.3 10*3/uL (0.0-0.87); Eosinophils % 4.4 % (0.00-10.9); Hematocrit 29.1 VOL% (42.0-52.0); Hemoglobin 8.9 GM/DL (14.0-18.0); Immature Granulocytes % 0.2 %; Immature Granulocytes Absolute 0.01 #; Lymphocytes # 1.3 10*3/uL (1.4-4.0); Lymphocytes % 22.5 % (21.2-54.2); Mean Corpuscular HGB Conc 30.6 GM/DL (32-36); Mean Corpuscular Volume 100.3 FL (87-102); Mean Platelet Volume 10.3 FL (9.6-12.0); Monocytes % 10.5 % (1.7-12.7); Neutrophils % 61.3 % (38.7-73.9); Platelet Count 172 T/CUMM (130-400); Red Cell Distribution Width 16.2 % (9.3-17.3); White Blood Count 5.7 T/CUMM (4-12)
[2020-02-14 05:07] LABS: Calcium 8.5 MG/DL (8.5-10.1); Osmolality,Calculated 277.7 MOS/KG (273-304)
[2020-02-14] MEDS: ALBUTEROL/IPRATROPIUM 3 ML NEB RESP TX SCH ×4 (07:43→19:05)
[2020-02-14] MEDS: MIDODRINE 5 MG TABLET PO SCH ×4 (08:38→20:59)
[2020-02-14] MEDS: INSULIN LISPRO 100 UNIT/ML SUBCUT SCH ×3 (08:39→17:47)
[2020-02-14] MEDS: ISOSORBIDE MONONITRATE 30 MG TABLET PO SCH ×2 (08:40→15:51)
[2020-02-14] MEDS: ASPIRIN CHEW 81 MG TABLET PO SCH ×2 (08:40→15:52)
[2020-02-14] MEDS: FERROUS SULFATE 325 MG TABLET PO SCH ×3 (08:40→15:49)
[2020-02-14] MEDS: PANTOPRAZOLE 40 MG TABLET PO SCH ×2 (08:41→15:52)
[2020-02-14] MEDS: POLYCARBOPHIL 625 MG TABLET PO SCH ×2 (08:41→15:50)
[2020-02-14] MEDS: SEVELAMER CARBONATE 800 MG TABLET PO SCH ×3 (08:42→17:48)
[2020-02-14] MEDS: DILTIAZEM CD 180 MG CAPSULE PO SCH ×2 (08:42→15:52)
[2020-02-14] MEDS: allopurinoL 300 MG TABLET PO SCH ×2 (08:42→15:51)
[2020-02-14] MEDS: APIXABAN 2.5 MG TABLET PO SCH ×2 (14:30→20:58)
[2020-02-14] MEDS: BISOPROLOL 5 MG TABLET PO SCH (15:50)
[2020-02-14] MEDS: calcitrioL 0.25 MCG CAPSULE PO SCH (15:54)
[2020-02-14] MEDS: CYANOCOBALAMIN 100 MCG TABLET PO SCH (16:12)
[2020-02-14] MEDS: GABAPENTIN 600 MG TABLET PO SCH (20:58)
[2020-02-14] MEDS: ATORVASTATIN 40 MG TABLET PO SCH (20:58)
[2020-02-14] MEDS: FLUTICASONE 50 MCG NASAL SPRAY 16 GM BOTTLE BOTH NARES SCH (21:00)
[2020-02-15 06:04] LABS: Basophils # 0.1 10*3/uL (0.0-0.2); Basophils % 1.1 % (0.0-0.8); Eosinophils # 0.3 10*3/uL (0.0-0.87); Eosinophils % 4.9 % (0.00-10.9); Hematocrit 30.1 VOL% (42.0-52.0); Hemoglobin 9.3 GM/DL (14.0-18.0); Immature Granulocytes % 0.4 %; Immature Granulocytes Absolute 0.02 #; Lymphocytes # 1.3 10*3/uL (1.4-4.0); Lymphocytes % 23.5 % (21.2-54.2); Mean Corpuscular HGB Conc 30.9 GM/DL (32-36); Mean Platelet Volume 10.3 FL (9.6-12.0); Neutrophils % 59.1 % (38.7-73.9); Platelet Count 207 T/CUMM (130-400); Red Blood Count 3.04 MC/CUMM (3.8-5.5); Red Cell Distribution Width 16.3 % (9.3-17.3); White Blood Count 5.4 T/CUMM (4-12)
[2020-02-15 06:28] LABS: Calcium 8.4 MG/DL (8.5-10.1); Osmolality,Calculated 274.7 MOS/KG (273-304)
[2020-02-15] MEDS: ALBUTEROL/IPRATROPIUM 3 ML NEB RESP TX SCH ×4 (07:08→18:50)
[2020-02-15] MEDS: SEVELAMER CARBONATE 800 MG TABLET PO SCH ×3 (08:12→17:08)
[2020-02-15] MEDS: INSULIN LISPRO 100 UNIT/ML SUBCUT SCH ×3 (08:12→17:08)
[2020-02-15] MEDS: FERROUS SULFATE 325 MG TABLET PO SCH ×2 (08:12→15:50)
[2020-02-15] MEDS: DILTIAZEM CD 180 MG CAPSULE PO SCH (08:12)
[2020-02-15] MEDS: ISOSORBIDE MONONITRATE 30 MG TABLET PO SCH (08:12)
[2020-02-15] MEDS: BISOPROLOL 5 MG TABLET PO SCH (08:13)
[2020-02-15] MEDS: MIDODRINE 5 MG TABLET PO SCH ×3 (08:14→20:40)
[2020-02-15] MEDS: ASPIRIN CHEW 81 MG TABLET PO SCH (08:14)
[2020-02-15] MEDS: POLYCARBOPHIL 625 MG TABLET PO SCH (08:14)
[2020-02-15] MEDS: PANTOPRAZOLE 40 MG TABLET PO SCH (08:14)
[2020-02-15] MEDS: CYANOCOBALAMIN 100 MCG TABLET PO SCH (08:14)
[2020-02-15] MEDS: APIXABAN 2.5 MG TABLET PO SCH ×2 (08:14→20:40)
[2020-02-15] MEDS: allopurinoL 300 MG TABLET PO SCH (08:14)
[2020-02-15] MEDS: COLLAGENASE OINT 30 GM TUBE TOP SCH (18:05)
[2020-02-15] MEDS: FLUTICASONE 50 MCG NASAL SPRAY 16 GM BOTTLE BOTH NARES SCH (20:40)
[2020-02-15] MEDS: GABAPENTIN 600 MG TABLET PO SCH (20:41)
[2020-02-15] MEDS: ATORVASTATIN 40 MG TABLET PO SCH (20:41)
[2020-02-16 05:16] LABS: Basophils # 0.1 10*3/uL (0.0-0.2); Basophils % 1.2 % (0.0-0.8); Eosinophils # 0.3 10*3/uL (0.0-0.87); Eosinophils % 5.5 % (0.00-10.9); Hematocrit 28.5 VOL% (42.0-52.0); Hemoglobin 8.8 GM/DL (14.0-18.0); Immature Granulocytes % 0.5 %; Immature Granulocytes Absolute 0.03 #; Lymphocytes # 1.4 10*3/uL (1.4-4.0); Lymphocytes % 22.9 % (21.2-54.2); Mean Corpuscular HGB Conc 30.9 GM/DL (32-36); Mean Corpuscular Volume 99.3 FL (87-102); Mean Platelet Volume 10.2 FL (9.6-12.0); Neutrophils % 60.9 % (38.7-73.9); Platelet Count 213 T/CUMM (130-400); Red Blood Count 2.87 MC/CUMM (3.8-5.5); Red Cell Distribution Width 16.2 % (9.3-17.3)
[2020-02-16 05:43] LABS: Calcium 8.4 MG/DL (8.5-10.1); Osmolality,Calculated 278.7 MOS/KG (273-304)
[2020-02-16] MEDS: ALBUTEROL/IPRATROPIUM 3 ML NEB RESP TX SCH ×5 (07:11→19:35)
[2020-02-16] MEDS: DOCUSATE/SENNA 50-8.6 MG TABLET PO PRN (08:43)
[2020-02-16] MEDS: CYANOCOBALAMIN 100 MCG TABLET PO SCH (08:45)
[2020-02-16] MEDS: allopurinoL 300 MG TABLET PO SCH (08:45)
[2020-02-16] MEDS: FERROUS SULFATE 325 MG TABLET PO SCH ×2 (08:46→17:20)
[2020-02-16] MEDS: ASPIRIN CHEW 81 MG TABLET PO SCH (08:46)
[2020-02-16] MEDS: POLYCARBOPHIL 625 MG TABLET PO SCH (08:46)
[2020-02-16] MEDS: PANTOPRAZOLE 40 MG TABLET PO SCH (08:46)
[2020-02-16] MEDS: SEVELAMER CARBONATE 800 MG TABLET PO SCH ×3 (08:46→17:20)
[2020-02-16] MEDS: ISOSORBIDE MONONITRATE 30 MG TABLET PO SCH (08:46)
[2020-02-16] MEDS: INSULIN LISPRO 100 UNIT/ML SUBCUT SCH ×3 (08:53→17:51)
[2020-02-16] MEDS: CYANOCOBALAMIN 500 MCG TABLET PO SCH (08:54)
[2020-02-16] MEDS: COLLAGENASE OINT 30 GM TUBE TOP SCH (08:54)
[2020-02-16] MEDS: BISOPROLOL 5 MG TABLET PO SCH (17:19)
[2020-02-16] MEDS: MIDODRINE 5 MG TABLET PO SCH ×2 (17:21→21:52)
[2020-02-16] MEDS: calcitrioL 0.25 MCG CAPSULE PO SCH (17:21)
[2020-02-16] MEDS: APIXABAN 2.5 MG TABLET PO SCH ×2 (17:22→21:52)
[2020-02-16] MEDS: DILTIAZEM CD 180 MG CAPSULE PO SCH (17:22)
[2020-02-16] MEDS: ATORVASTATIN 40 MG TABLET PO SCH (21:51)
[2020-02-16] MEDS: GABAPENTIN 600 MG TABLET PO SCH (21:51)
[2020-02-16] MEDS: FLUTICASONE 50 MCG NASAL SPRAY 16 GM BOTTLE BOTH NARES SCH (21:51)
[2020-02-17] MEDS: ALBUTEROL/IPRATROPIUM 3 ML NEB RESP TX SCH ×2 (07:25→12:00)
[2020-02-17] MEDS: POLYCARBOPHIL 625 MG TABLET PO SCH (09:02)
[2020-02-17] MEDS: SEVELAMER CARBONATE 800 MG TABLET PO SCH ×2 (09:02→11:54)
[2020-02-17] MEDS: ISOSORBIDE MONONITRATE 30 MG TABLET PO SCH (09:03)
[2020-02-17] MEDS: DILTIAZEM CD 180 MG CAPSULE PO SCH (09:03)
[2020-02-17] MEDS: allopurinoL 300 MG TABLET PO SCH (09:03)
[2020-02-17] MEDS: DOCUSATE/SENNA 50-8.6 MG TABLET PO PRN (09:03)
[2020-02-17] MEDS: APIXABAN 2.5 MG TABLET PO SCH (09:04)
[2020-02-17] MEDS: PANTOPRAZOLE 40 MG TABLET PO SCH (09:04)
[2020-02-17] MEDS: FERROUS SULFATE 325 MG TABLET PO SCH (09:04)
[2020-02-17] MEDS: ASPIRIN CHEW 81 MG TABLET PO SCH (09:04)
[2020-02-17] MEDS: BISOPROLOL 5 MG TABLET PO SCH (09:04)
[2020-02-17] MEDS: MIDODRINE 5 MG TABLET PO SCH (09:04)
[2020-02-17] MEDS: CYANOCOBALAMIN 500 MCG TABLET PO SCH (09:04)
[2020-02-17] MEDS: INSULIN LISPRO 100 UNIT/ML SUBCUT SCH (09:05)
[2020-02-17] MEDS: COLLAGENASE OINT 30 GM TUBE TOP SCH (09:05)
[2020-02-17 13:01] VITALS: BP 102/43
== END 2020-02-17 15:07 | disposition swing bed (61) | DRG 291 ==
LOC: EDUNIT# → EDBD → N.EDINP 10:36 → N.ED 10:36 → N.5E 13:40 → SUATTDRO 02-12 10:22
PROVIDERS: ADMIT Internal Medicine Geriatric Medicine; ATTEND Internal Medicine

== ENCOUNTER 2020-02-28 10:14 | Inpatient (IN) ==
[2020-02-28 11:35] LABS: Basophils # 0.1 10*3/uL (0.0-0.2); Basophils % 0.7 % (0.0-0.8); Eosinophils # 0.3 10*3/uL (0.0-0.87); Eosinophils % 3.8 % (0.00-10.9); Hematocrit 29.4 VOL% (42.0-52.0); Hemoglobin 8.6 GM/DL (14.0-18.0); Immature Granulocytes % 0.4 %; Immature Granulocytes Absolute 0.03 #; Lymphocytes # 1.5 10*3/uL (1.4-4.0); Lymphocytes % 20.8 % (21.2-54.2); Mean Corpuscular HGB Conc 29.3 GM/DL (32-36); Mean Corpuscular Volume 104.3 FL (87-102); Mean Platelet Volume 10.2 FL (9.6-12.0); Monocytes % 8.6 % (1.7-12.7); Neutrophils % 65.7 % (38.7-73.9); Platelet Count 205 T/CUMM (130-400); Red Blood Count 2.82 MC/CUMM (3.8-5.5); Red Cell Distribution Width 16.3 % (9.3-17.3); White Blood Count 7.1 T/CUMM (4-12)
[2020-02-28 11:42] LABS: INR 1.1; PT Patient Result 11.9 SECS (9.8-11.9)
[2020-02-28 12:03] LABS: Alanine Aminotransferase < 9 U/L (16-61); Albumin 2.2 G/DL (3.4-5.0); Alkaline Phosphatase 149 U/L (45-117); Aspartate Amino Transferase 11 U/L (0-37); Blood Urea Nitrogen 22 MG/DL (7-18); Calcium 8.3 MG/DL (8.5-10.1); Estimated Glom Filtration Rate 17 ML/MIN; Glucose 113 MG/DL (74-106); Osmolality,Calculated 284.3 MOS/KG (273-304); Total Protein 4.9 G/DL (6.4-8.3)
[2020-02-28] MEDS ORDERED: ONDANSETRON 4 MG/2 ML VIAL IV PRN (14:26)
[2020-02-28] MEDS ORDERED: DOCUSATE SODIUM 100 MG CAPSULE PO PRN (14:26)
[2020-02-28] MEDS ORDERED: GLUCAGON 1 MG VIAL IM PRN (14:26)
[2020-02-28] MEDS ORDERED: DEXTROSE 10% 250 ML BAG IV PRN (14:26)
[2020-02-28] MEDS ORDERED: LACTULOSE 20 GM/30 ML UDCUP PO PRN (14:26)
[2020-02-28] MEDS: MORPHINE 4 MG/1 ML VIAL IV PRN (16:30)
[2020-02-28] MEDS: HEPARIN 5,000 UNIT/1 ML VIAL SUBCUT SCH ×2 (16:30→22:37)
[2020-02-28] MEDS: INSULIN LISPRO 100 UNIT/ML SUBCUT SCH ×2 (16:40→20:26)
[2020-02-29 05:09] LABS: Basophils # 0.1 10*3/uL (0.0-0.2); Basophils % 0.9 % (0.0-0.8); Eosinophils # 0.2 10*3/uL (0.0-0.87); Eosinophils % 3.6 % (0.00-10.9); Hematocrit 32.3 VOL% (42.0-52.0); Hemoglobin 9.6 GM/DL (14.0-18.0); Immature Granulocytes % 0.4 %; Immature Granulocytes Absolute 0.02 #; Lymphocytes # 1.7 10*3/uL (1.4-4.0); Mean Corpuscular HGB Conc 29.7 GM/DL (32-36); Mean Corpuscular Volume 103.2 FL (87-102); Mean Platelet Volume 9.9 FL (9.6-12.0); Monocytes % 7.7 % (1.7-12.7); Neutrophils % 57.4 % (38.7-73.9); Platelet Count 190 T/CUMM (130-400); Red Blood Count 3.13 MC/CUMM (3.8-5.5); Red Cell Distribution Width 16.4 % (9.3-17.3); White Blood Count 5.6 T/CUMM (4-12)
[2020-02-29 05:46] LABS: Alanine Aminotransferase < 9 U/L (16-61); Albumin 2.3 G/DL (3.4-5.0); Alkaline Phosphatase 160 U/L (45-117); Aspartate Amino Transferase 10 U/L (0-37); Blood Urea Nitrogen 27 MG/DL (7-18); Calcium 9.3 MG/DL (8.5-10.1); Estimated Glom Filtration Rate 14 ML/MIN; Glucose 105 MG/DL (74-106); Osmolality,Calculated 283.4 MOS/KG (273-304); Total Protein 5.9 G/DL (6.4-8.3)
[2020-02-29] MEDS: HEPARIN 5,000 UNIT/1 ML VIAL SUBCUT SCH ×3 (08:16→23:11)
[2020-02-29] MEDS: PANTOPRAZOLE 40 MG TABLET PO SCH (08:17)
[2020-02-29] MEDS: INSULIN LISPRO 100 UNIT/ML SUBCUT SCH ×4 (08:17→20:23)
[2020-02-29] MEDS ORDERED: ALBUMIN IV ONE (10:30)
[2020-02-29] MEDS: MORPHINE 4 MG/1 ML VIAL IV PRN (13:41)
[2020-02-29] MEDS: DESITIN 4OZ/NYSTATIN 15 GRAM MIXTURE PASTE TOP SCH ×2 (16:00→21:14)
[2020-03-01] MEDS: MORPHINE 4 MG/1 ML VIAL IV PRN (02:26)
[2020-03-01 05:46] LABS: Basophils # 0.1 10*3/uL (0.0-0.2); Basophils % 0.9 % (0.0-0.8); Eosinophils # 0.2 10*3/uL (0.0-0.87); Eosinophils % 3.3 % (0.00-10.9); Hematocrit 29.5 VOL% (42.0-52.0); Hemoglobin 8.6 GM/DL (14.0-18.0); Immature Granulocytes % 0.2 %; Immature Granulocytes Absolute 0.01 #; Lymphocytes # 1.3 10*3/uL (1.4-4.0); Mean Corpuscular HGB Conc 29.2 GM/DL (32-36); Mean Corpuscular Volume 106.5 FL (87-102); Mean Platelet Volume 10.5 FL (9.6-12.0); Monocytes % 9.2 % (1.7-12.7); Neutrophils % 63.4 % (38.7-73.9); Platelet Count 160 T/CUMM (130-400); Red Blood Count 2.77 MC/CUMM (3.8-5.5); Red Cell Distribution Width 16.2 % (9.3-17.3); White Blood Count 5.4 T/CUMM (4-12)
[2020-03-01 06:37] LABS: Alanine Aminotransferase < 9 U/L (16-61); Albumin 2.3 G/DL (3.4-5.0); Alkaline Phosphatase 131 U/L (45-117); Aspartate Amino Transferase 16 U/L (0-37); Blood Urea Nitrogen 14 MG/DL (7-18); Calcium 8.5 MG/DL (8.5-10.1); Estimated Glom Filtration Rate 24 ML/MIN; Glucose 82 MG/DL (74-106); Osmolality,Calculated 274.7 MOS/KG (273-304); Total Protein 5.4 G/DL (6.4-8.3)
[2020-03-01] MEDS: INSULIN LISPRO 100 UNIT/ML SUBCUT SCH ×4 (08:05→20:53)
[2020-03-01] MEDS: HEPARIN 5,000 UNIT/1 ML VIAL SUBCUT SCH ×3 (08:20→23:44)
[2020-03-01] MEDS: PANTOPRAZOLE 40 MG TABLET PO SCH (09:00)
[2020-03-01] MEDS ORDERED: SODIUM CHLORIDE 0.9% 250 ML IV SCH (09:30)
[2020-03-01] MEDS ORDERED: LIDOCAINE 2%/EPI 20 ML VIAL ONE (09:43)
[2020-03-01] MEDS ORDERED: PHENYLEPHRINE 1 MG/10 ML SYRINGE IV ONE (10:59)
[2020-03-01] MEDS ORDERED: MIDAZOLAM 2 MG/2 ML VIAL ONE (10:59)
[2020-03-01] MEDS ORDERED: KETAMINE 500 MG/10 ML VIAL ONE (10:59)
[2020-03-01] MEDS: ALBUTEROL/IPRATROPIUM 3 ML NEB RESP TX PRN ×2 (12:05→16:53)
[2020-03-01] MEDS: DESITIN 4OZ/NYSTATIN 15 GRAM MIXTURE PASTE TOP SCH ×2 (14:42→20:05)
[2020-03-01] MEDS ORDERED: ALBUTEROL 2.5 MG/3 ML NEB RESP TX ONE (17:09)
[2020-03-01 17:21] LABS: ABG Base Excess 2.7 MMOL/L (-2.5-2.5); ABG HCO3 26.7 MMOL/L (20-26); ABG Oxygen Saturation 91.6 % (95-100); ABG PH 7.225 (7.35-7.45); ABG TCO2 30.4 MMOL/L (23-27)
[2020-03-01 17:23] LABS: ABG PCO2 77.4 MM HG (35-48)
[2020-03-01] MEDS ORDERED: SODIUM CHLORIDE 0.9% 250 ML IV ONE (17:31)
[2020-03-01 17:48] LABS: Basophils % 0.7 % (0.0-0.8); Eosinophils # 0.2 10*3/uL (0.0-0.87); Eosinophils % 2.9 % (0.00-10.9); Hematocrit 28.1 VOL% (42.0-52.0); Hemoglobin 8.1 GM/DL (14.0-18.0); Immature Granulocytes % 0.5 %; Immature Granulocytes Absolute 0.03 #; Lymphocytes # 1.2 10*3/uL (1.4-4.0); Lymphocytes % 20.5 % (21.2-54.2); Mean Corpuscular HGB Conc 28.8 GM/DL (32-36); Mean Corpuscular Volume 105.6 FL (87-102); Mean Platelet Volume 9.4 FL (9.6-12.0); Monocytes % 9.2 % (1.7-12.7); Neutrophils % 66.2 % (38.7-73.9); Platelet Count 200 T/CUMM (130-400); Red Blood Count 2.66 MC/CUMM (3.8-5.5); Red Cell Distribution Width 16.8 % (9.3-17.3); White Blood Count 5.8 T/CUMM (4-12)
[2020-03-01 18:10] LABS: Alanine Aminotransferase < 9 U/L (16-61); Albumin 2.4 G/DL (3.4-5.0); Alkaline Phosphatase 133 U/L (45-117); Aspartate Amino Transferase 10 U/L (0-37); Blood Urea Nitrogen 16 MG/DL (7-18); Calcium 8.6 MG/DL (8.5-10.1); Estimated Glom Filtration Rate 19 ML/MIN; Glucose 107 MG/DL (74-106); Osmolality,Calculated 279.4 MOS/KG (273-304); Total Protein 5.4 G/DL (6.4-8.3); Troponin I < 0.015 NG/ML (0.00-0.045)
[2020-03-01 18:41] LABS: ABG Base Excess 2.3 MMOL/L (-2.5-2.5); ABG HCO3 26.4 MMOL/L (20-26); ABG Oxygen Saturation 93.5 % (95-100); ABG PCO2 61.9 MM HG (35-48); ABG PH 7.293 (7.35-7.45); ABG PO2 66.2 MM HG (80-95); ABG TCO2 28.1 MMOL/L (23-27); Pt O2 Delivery Device BIPAP
[2020-03-02 04:23] LABS: ABG Base Excess 0.5 MMOL/L (-2.5-2.5); ABG HCO3 24.9 MMOL/L (20-26); ABG Oxygen Saturation 99.2 % (95-100); ABG PCO2 56.3 MM HG (35-48); ABG PH 7.298 (7.35-7.45); ABG TCO2 25.9 MMOL/L (23-27); Allen Test Positive; Pt O2 Delivery Device BIPAP
[2020-03-02 04:52] LABS: Basophils % 0.7 % (0.0-0.8); Eosinophils # 0.2 10*3/uL (0.0-0.87); Eosinophils % 3.7 % (0.00-10.9); Hematocrit 25.2 VOL% (42.0-52.0); Hemoglobin 7.5 GM/DL (14.0-18.0); Immature Granulocytes % 0.7 %; Immature Granulocytes Absolute 0.03 #; Lymphocytes % 23.7 % (21.2-54.2); Mean Corpuscular HGB Conc 29.8 GM/DL (32-36); Mean Corpuscular Volume 102.4 FL (87-102); Mean Platelet Volume 10.1 FL (9.6-12.0); Monocytes % 10.3 % (1.7-12.7); Neutrophils % 60.9 % (38.7-73.9); Platelet Count 172 T/CUMM (130-400); Red Blood Count 2.46 MC/CUMM (3.8-5.5); Red Cell Distribution Width 16.6 % (9.3-17.3); White Blood Count 4.4 T/CUMM (4-12)
[2020-03-02 05:23] LABS: Calcium 8.5 MG/DL (8.5-10.1); Osmolality,Calculated 280.3 MOS/KG (273-304)
[2020-03-02] MEDS: INSULIN LISPRO 100 UNIT/ML SUBCUT SCH ×4 (08:37→21:10)
[2020-03-02] MEDS: HEPARIN 5,000 UNIT/1 ML VIAL SUBCUT SCH ×3 (09:00→23:49)
[2020-03-02] MEDS: PANTOPRAZOLE 40 MG TABLET PO SCH (09:00)
[2020-03-02] MEDS: DESITIN 4OZ/NYSTATIN 15 GRAM MIXTURE PASTE TOP SCH ×2 (09:00→21:03)
[2020-03-02] MEDS ORDERED: EPOETIN ALFA 10,000 UNIT/1 ML VIAL IV PRN (10:51)
[2020-03-02] MEDS ORDERED: ALBUMIN 25% 25 GM in PREMIX 1 EACH IV PRN ×2 (10:52→12:02)
[2020-03-02] MEDS: TRIAMCINOLONE 0.1% CREAM 15 GM TUBE TOP SCH ×3 (12:30→21:04)
[2020-03-02 15:22] LABS: ABG Base Excess 2.5 MMOL/L (-2.5-2.5); ABG HCO3 26.6 MMOL/L (20-26); ABG Oxygen Saturation 93.8 % (95-100); ABG PCO2 57.8 MM HG (35-48); ABG PH 7.317 (7.35-7.45); ABG PO2 67.2 MM HG (80-95); ABG TCO2 27.7 MMOL/L (23-27)
[2020-03-02] MEDS: MIDODRINE 5 MG TABLET PO SCH ×2 (16:53→21:15)
[2020-03-02] MEDS: SEVELAMER CARBONATE 800 MG TABLET PO SCH (17:40)
[2020-03-02] MEDS ORDERED: FLUTICASONE 50 MCG NASAL SPRAY 16 GM BOTTLE BOTH NARES SCH (21:00)
[2020-03-02] MEDS: FERROUS SULFATE 325 MG TABLET PO SCH (21:15)
[2020-03-02] MEDS ORDERED: EPINEPHrine 1 MG/10 ML SYRINGE ONE (22:50)
[2020-03-02] MEDS ORDERED: SODIUM BICARBONATE 50 MEQ/50 ML SYRINGE IV ONE (22:50)
[2020-03-02] MEDS: NOREPINEPHRINE 8 MG in SODIUM CHLORIDE 0.9% 242 ML IV PRN (22:50)
[2020-03-02 23:44] LABS: ABG HCO3 23.6 MMOL/L (20-26); ABG Oxygen Saturation 98.3 % (95-100); ABG PH 7.297 (7.35-7.45); ABG TCO2 24.3 MMOL/L (23-27); Allen Test Positive; Pt O2 Delivery Device Ventilator
[2020-03-03] MEDS: NOREPINEPHRINE 8 MG in SODIUM CHLORIDE 0.9% 242 ML IV PRN ×4 (02:19→23:20)
[2020-03-03 03:39] LABS: ABG HCO3 21.1 MMOL/L (20-26); ABG PCO2 49.8 MM HG (35-48); ABG PH 7.273 (7.35-7.45); ABG TCO2 21.4 MMOL/L (23-27); Allen Test Positive; Pt O2 Delivery Device Ventilator
[2020-03-03 08:55] LABS: Basophils # 0.1 10*3/uL (0.0-0.2); Basophils % 0.4 % (0.0-0.8); Eosinophils % 0.1 % (0.00-10.9); Hematocrit 31.5 VOL% (42.0-52.0); Immature Granulocytes % 0.4 %; Immature Granulocytes Absolute 0.06 #; Lymphocytes # 0.9 10*3/uL (1.4-4.0); Lymphocytes % 6.3 % (21.2-54.2); Mean Corpuscular HGB Conc 29.5 GM/DL (32-36); Mean Corpuscular Volume 105.4 FL (87-102); Mean Platelet Volume 10.1 FL (9.6-12.0); Monocytes % 6.9 % (1.7-12.7); NRBC # 0.03 10*3/uL; Neutrophils % 85.9 % (38.7-73.9); Red Cell Distribution Width 17.1 % (9.3-17.3)
[2020-03-03] MEDS: PANTOPRAZOLE 40 MG VIAL IV SCH (08:59)
[2020-03-03] MEDS: MIDODRINE 5 MG TABLET PO SCH ×3 (09:00→21:47)
[2020-03-03] MEDS: SEVELAMER CARBONATE 800 MG TABLET PO SCH (09:00)
[2020-03-03] MEDS: FERROUS SULFATE 325 MG TABLET PO SCH (09:00)
[2020-03-03] MEDS ORDERED: NON-FORMULARY MEDICATION (Omeprazole 20 MG) PO SCH (09:00)
[2020-03-03] MEDS: HEPARIN 5,000 UNIT/1 ML VIAL SUBCUT SCH (09:02)
[2020-03-03 09:07] LABS: Hemoglobin 9.3 GM/DL (14.0-18.0); Red Blood Count 2.99 MC/CUMM (3.8-5.5); White Blood Count 14.2 T/CUMM (4-12)
[2020-03-03] MEDS: DESITIN 4OZ/NYSTATIN 15 GRAM MIXTURE PASTE TOP SCH ×2 (09:07→21:57)
[2020-03-03] MEDS: TRIAMCINOLONE 0.1% CREAM 15 GM TUBE TOP SCH ×2 (09:07→21:58)
[2020-03-03 09:08] LABS: Platelet Count 253 T/CUMM (130-400)
[2020-03-03 09:20] LABS: Calcium 8.7 MG/DL (8.5-10.1); Osmolality,Calculated 276.7 MOS/KG (273-304)
[2020-03-03 09:21] LABS: Total Protein 5.3 G/DL (6.4-8.3)
[2020-03-03] MEDS ORDERED: NOREPINEPHRINE 4 MG/4 ML VIAL IV ONE (09:43)
[2020-03-03] MEDS ORDERED: PHENYLEPHRINE DRIP 40 MG/250 ML PREMIX IV ONE (09:51)
[2020-03-03] MEDS: INSULIN LISPRO 100 UNIT/ML SUBCUT SCH ×5 (11:19→22:29)
[2020-03-03 11:26] LABS: Eosinophils,Pleural Fluid 2 %; Lymphocytes,Pleural Fluid 37 %; Monocytes,Pleural Fluid 10 %; Neutrophils,Pleural Fluid 51 %
[2020-03-03 11:31] LABS: RBC,Pleural Fluid 8927 T/CUMM
[2020-03-03 11:41] LABS: Total Protein,Pleural Fluid 2.4 G/DL
[2020-03-03] MEDS: CEFEPIME 1,000 MG in SODIUM CHLORIDE 0.9% 100 ML IV SCH ×2 (11:43→23:12)
[2020-03-03 12:15] LABS: ABG Base Excess -6.5 MMOL/L (-2.5-2.5); ABG HCO3 19.1 MMOL/L (20-26); ABG PCO2 52.4 MM HG (35-48); Allen Test Positive; Pt O2 Delivery Device Ventilator
[2020-03-03 12:42] LABS: Troponin I 0.151 NG/ML (0.00-0.045)
[2020-03-03] MEDS: PHENYLEPHRINE DRIP 40 MG/250 ML PREMIX IV PRN ×3 (12:49→23:21)
[2020-03-03] MEDS ORDERED: DIGOXIN 0.5 MG/2 ML AMP IV ONE ×2 (13:05→17:00)
[2020-03-03] MEDS: methylPREDNISolone SOD SUC 40 MG/1 ML VIAL IV SCH ×2 (13:23→21:47)
[2020-03-03] MEDS: calcitrioL 0.25 MCG CAPSULE PO SCH (13:23)
[2020-03-03] MEDS: ASPIRIN CHEW 81 MG TABLET PO SCH (14:34)
[2020-03-03] MEDS: DEXMEDETOMIDINE 200 MCG in SODIUM CHLORIDE 0.9% 48 ML IV PRN (15:19)
[2020-03-03 15:57] LABS: ABG HCO3 18.7 MMOL/L (20-26); ABG Oxygen Saturation 97.6 % (95-100); ABG PCO2 48.8 MM HG (35-48); ABG PH 7.233 (7.35-7.45); ABG PO2 98.7 MM HG (80-95); ABG TCO2 19.1 MMOL/L (23-27)
[2020-03-03] MEDS: CYANOCOBALAMIN 100 MCG TABLET PO SCH (17:36)
[2020-03-03] MEDS: EZETIMIBE 10 MG TABLET NG SCH (21:47)
[2020-03-04] MEDS: DEXMEDETOMIDINE 200 MCG in SODIUM CHLORIDE 0.9% 48 ML IV PRN ×4 (02:46→21:55)
[2020-03-04] MEDS: PHENYLEPHRINE DRIP 40 MG/250 ML PREMIX IV PRN ×5 (03:26→23:39)
[2020-03-04 04:36] LABS: ABG Base Excess -2.2 MMOL/L (-2.5-2.5); ABG HCO3 23.9 MMOL/L (20-26); ABG Oxygen Saturation 98.7 % (95-100); ABG PCO2 46.3 MM HG (35-48); ABG PO2 130.3 MM HG (80-95); ABG TCO2 25.3 MMOL/L (23-27); Allen Test Positive; Pt O2 Delivery Device Ventilator
[2020-03-04] MEDS: methylPREDNISolone SOD SUC 40 MG/1 ML VIAL IV SCH ×3 (05:05→22:48)
[2020-03-04 06:34] LABS: Basophils % 0.1 % (0.0-0.8); Calcium 8.4 MG/DL (8.5-10.1); Hematocrit 31.2 VOL% (42.0-52.0); Hemoglobin 9.6 GM/DL (14.0-18.0); Immature Granulocytes % 0.6 %; Immature Granulocytes Absolute 0.05 #; Lymphocytes # 0.5 10*3/uL (1.4-4.0); Lymphocytes % 5.5 % (21.2-54.2); Mean Corpuscular HGB Conc 30.8 GM/DL (32-36); Mean Platelet Volume 9.8 FL (9.6-12.0); Monocytes % 3.1 % (1.7-12.7); NRBC # 0.02 10*3/uL; Neutrophils % 90.7 % (38.7-73.9); Osmolality,Calculated 285.4 MOS/KG (273-304); Platelet Count 218 T/CUMM (130-400); Red Blood Count 3.06 MC/CUMM (3.8-5.5); Red Cell Distribution Width 17.2 % (9.3-17.3); White Blood Count 8.8 T/CUMM (4-12)
[2020-03-04 06:45] LABS: Folate 4.3 NG/ML (5.4-24.0); Vitamin B12 > 2000 PG/ML (211-911)
[2020-03-04 07:25] LABS: Anisocytosis 2+; Band Neutrophils 28 % (0-10); Hypochromasia Slight; Lymphocytes 2 % (20-55); Macrocytosis 2+; Platelet Estimate Normal; Segmented Neutrophils 69 % (50-85); Smudge Cells Few; Total Cells Counted 100
[2020-03-04 07:26] LABS: Polychromasia 1+
[2020-03-04] MEDS: INSULIN LISPRO 100 UNIT/ML SUBCUT SCH ×4 (07:34→22:26)
[2020-03-04] MEDS: MIDODRINE 5 MG TABLET PO SCH ×3 (08:29→22:51)
[2020-03-04] MEDS: PANTOPRAZOLE 40 MG VIAL IV SCH (08:29)
[2020-03-04] MEDS: ASPIRIN CHEW 81 MG TABLET PO SCH (08:30)
[2020-03-04] MEDS: CYANOCOBALAMIN 100 MCG TABLET PO SCH (08:30)
[2020-03-04] MEDS: FOLIC ACID 1 MG TABLET PER TUBE SCH (08:30)
[2020-03-04] MEDS: CEFEPIME 1,000 MG in SODIUM CHLORIDE 0.9% 100 ML IV SCH ×2 (10:07→23:45)
[2020-03-04] MEDS: TRIAMCINOLONE 0.1% CREAM 15 GM TUBE TOP SCH ×2 (10:08→22:50)
[2020-03-04] MEDS: DESITIN 4OZ/NYSTATIN 15 GRAM MIXTURE PASTE TOP SCH ×2 (10:08→22:49)
[2020-03-04 18:04] LABS: Hepatitis B Core IgM Quant < 0.05 Index; Hepatitis B Surface Ag Quant < 0.10 Index; Hepatitis B Surface Ag Result Negative (Negative); Hepatitis C Virus Ab Quant 0.12 Index; Hepatitis C Virus Ab Result Negative (Negative)
[2020-03-04] MEDS: EZETIMIBE 10 MG TABLET NG SCH (22:24)
[2020-03-05] MEDS: DEXMEDETOMIDINE 200 MCG in SODIUM CHLORIDE 0.9% 48 ML IV PRN ×3 (02:00→09:35)
[2020-03-05 04:40] LABS: ABG Base Excess -1.6 MMOL/L (-2.5-2.5); ABG HCO3 23.1 MMOL/L (20-26); ABG Oxygen Saturation 98.1 % (95-100); ABG PCO2 37.3 MM HG (35-48); ABG PH 7.396 (7.35-7.45); ABG PO2 91.1 MM HG (80-95); ABG TCO2 20.6 MMOL/L (23-27)
[2020-03-05 05:07] LABS: Hematocrit 30.5 VOL% (42.0-52.0); Hemoglobin 9.1 GM/DL (14.0-18.0); Immature Granulocytes % 0.5 %; Immature Granulocytes Absolute 0.02 #; Lymphocytes # 0.3 10*3/uL (1.4-4.0); Lymphocytes % 6.8 % (21.2-54.2); Mean Corpuscular HGB Conc 29.8 GM/DL (32-36); Mean Corpuscular Volume 101.3 FL (87-102); Mean Platelet Volume 10.2 FL (9.6-12.0); Monocytes % 9.1 % (1.7-12.7); NRBC # 0.02 10*3/uL; Neutrophils % 83.6 % (38.7-73.9); Platelet Count 206 T/CUMM (130-400); Red Blood Count 3.01 MC/CUMM (3.8-5.5); White Blood Count 4.4 T/CUMM (4-12)
[2020-03-05] MEDS: PHENYLEPHRINE DRIP 40 MG/250 ML PREMIX IV PRN ×2 (05:12→17:40)
[2020-03-05] MEDS: INSULIN LISPRO 100 UNIT/ML SUBCUT SCH ×3 (06:05→18:10)
[2020-03-05] MEDS: methylPREDNISolone SOD SUC 40 MG/1 ML VIAL IV SCH ×3 (06:06→21:09)
[2020-03-05] MEDS ORDERED: LEVOFLOXACIN INJ 750 MG in PREMIX 1 EACH IV ONE (08:33)
[2020-03-05] MEDS ORDERED: MIDAZOLAM 2 MG/2 ML VIAL IV ONE (08:34)
[2020-03-05] MEDS ORDERED: MIDAZOLAM 10 MG/2 ML VIAL ONE (08:35)
[2020-03-05] MEDS: PANTOPRAZOLE 40 MG VIAL IV SCH (08:42)
[2020-03-05] MEDS: ASPIRIN CHEW 81 MG TABLET PO SCH (08:43)
[2020-03-05] MEDS: CYANOCOBALAMIN 100 MCG TABLET PO SCH (08:43)
[2020-03-05] MEDS: MIDODRINE 5 MG TABLET PO SCH ×3 (08:43→21:07)
[2020-03-05] MEDS: FOLIC ACID 1 MG TABLET PER TUBE SCH (08:43)
[2020-03-05] MEDS: DESITIN 4OZ/NYSTATIN 15 GRAM MIXTURE PASTE TOP SCH ×2 (10:25→21:08)
[2020-03-05] MEDS: TRIAMCINOLONE 0.1% CREAM 15 GM TUBE TOP SCH (10:25)
[2020-03-05] MEDS: CEFEPIME 1,000 MG in SODIUM CHLORIDE 0.9% 100 ML IV SCH (12:52)
[2020-03-05] MEDS ORDERED: PHENYLEPHRINE DRIP 40 MG/250 ML PREMIX IV PRN (17:40)
[2020-03-05] MEDS ORDERED: methylPREDNISolone SOD SUC 40 MG/1 ML VIAL IV SCH (18:00)
[2020-03-05] MEDS ORDERED: propofoL 200 MG/20 ML VIAL IV ONE (18:52)
[2020-03-05] MEDS: ALBUTEROL/IPRATROPIUM 3 ML NEB RESP TX SCH (19:27)
[2020-03-05] MEDS: APIXABAN 2.5 MG TABLET PO SCH (21:07)
[2020-03-05] MEDS: EZETIMIBE 10 MG TABLET NG SCH (21:09)
[2020-03-06] MEDS: TRIAMCINOLONE 0.1% CREAM 15 GM TUBE TOP SCH ×3 (00:05→21:35)
[2020-03-06] MEDS: CEFEPIME 1,000 MG in SODIUM CHLORIDE 0.9% 100 ML IV SCH ×3 (00:23→23:43)
[2020-03-06] MEDS: INSULIN LISPRO 100 UNIT/ML SUBCUT SCH ×4 (00:24→18:15)
[2020-03-06] MEDS: ALBUTEROL/IPRATROPIUM 3 ML NEB RESP TX SCH ×6 (03:05→23:43)
[2020-03-06 04:06] LABS: Hematocrit 25.6 VOL% (42.0-52.0); Hemoglobin 7.8 GM/DL (14.0-18.0); Immature Granulocytes % 0.7 %; Immature Granulocytes Absolute 0.02 #; Lymphocytes # 0.3 10*3/uL (1.4-4.0); Lymphocytes % 9.4 % (21.2-54.2); Mean Corpuscular HGB Conc 30.5 GM/DL (32-36); Mean Corpuscular Volume 100.4 FL (87-102); Mean Platelet Volume 9.7 FL (9.6-12.0); Monocytes % 10.5 % (1.7-12.7); Neutrophils % 79.4 % (38.7-73.9); Platelet Count 128 T/CUMM (130-400); Red Blood Count 2.55 MC/CUMM (3.8-5.5); Red Cell Distribution Width 16.8 % (9.3-17.3); White Blood Count 2.9 T/CUMM (4-12)
[2020-03-06 04:36] LABS: Calcium 8.4 MG/DL (8.5-10.1); Osmolality,Calculated 295.5 MOS/KG (273-304); Prealbumin 5.5 MG/DL (20-40)
[2020-03-06] MEDS: MIDODRINE 5 MG TABLET PO SCH ×3 (08:13→21:23)
[2020-03-06] MEDS: APIXABAN 2.5 MG TABLET PO SCH ×2 (08:13→21:22)
[2020-03-06] MEDS: ASPIRIN CHEW 81 MG TABLET PO SCH (08:13)
[2020-03-06] MEDS: FOLIC ACID 1 MG TABLET PER TUBE SCH (08:13)
[2020-03-06] MEDS: PANTOPRAZOLE 40 MG VIAL IV SCH (08:14)
[2020-03-06] MEDS: methylPREDNISolone SOD SUC 40 MG/1 ML VIAL IV SCH ×2 (08:16→21:23)
[2020-03-06] MEDS: DESITIN 4OZ/NYSTATIN 15 GRAM MIXTURE PASTE TOP SCH ×2 (08:18→21:35)
[2020-03-06] MEDS: CYANOCOBALAMIN 100 MCG TABLET PO SCH (09:46)
[2020-03-06] MEDS: CYANOCOBALAMIN 500 MCG TABLET PO SCH (10:15)
[2020-03-06] MEDS: calcitrioL 0.25 MCG CAPSULE PO SCH (14:00)
[2020-03-06] MEDS: EZETIMIBE 10 MG TABLET NG SCH (21:22)
[2020-03-07] MEDS: INSULIN LISPRO 100 UNIT/ML SUBCUT SCH ×4 (01:23→18:14)
[2020-03-07] MEDS: ALBUTEROL/IPRATROPIUM 3 ML NEB RESP TX SCH ×4 (03:01→16:02)
[2020-03-07 05:31] LABS: Hematocrit 25.3 VOL% (42.0-52.0); Hemoglobin 7.4 GM/DL (14.0-18.0); Immature Granulocytes % 0.3 %; Immature Granulocytes Absolute 0.01 #; Lymphocytes # 0.2 10*3/uL (1.4-4.0); Lymphocytes % 7.9 % (21.2-54.2); Mean Corpuscular HGB Conc 29.2 GM/DL (32-36); Mean Corpuscular Volume 104.5 FL (87-102); Mean Platelet Volume 10.3 FL (9.6-12.0); Monocytes % 8.2 % (1.7-12.7); NRBC # 0.02 10*3/uL; Neutrophils % 83.6 % (38.7-73.9); Platelet Count 106 T/CUMM (130-400); Red Blood Count 2.42 MC/CUMM (3.8-5.5); Red Cell Distribution Width 16.7 % (9.3-17.3)
[2020-03-07 05:57] LABS: Calcium 8.6 MG/DL (8.5-10.1); Osmolality,Calculated 301.4 MOS/KG (273-304)
[2020-03-07] MEDS ORDERED: LEVOFLOXACIN INJ 500 MG in PREMIX 1 EACH IV SCH (09:00)
[2020-03-07] MEDS: ASPIRIN CHEW 81 MG TABLET PO SCH (10:33)
[2020-03-07] MEDS: CYANOCOBALAMIN 500 MCG TABLET PO SCH ×2 (10:34→10:50)
[2020-03-07] MEDS: APIXABAN 2.5 MG TABLET PO SCH ×2 (10:34→10:50)
[2020-03-07] MEDS: FOLIC ACID 1 MG TABLET PER TUBE SCH ×2 (10:34→10:50)
[2020-03-07] MEDS: MIDODRINE 5 MG TABLET PO SCH ×3 (10:34→15:55)
[2020-03-07] MEDS: PANTOPRAZOLE 40 MG VIAL IV SCH (10:35)
[2020-03-07] MEDS: TRIAMCINOLONE 0.1% CREAM 15 GM TUBE TOP SCH (10:35)
[2020-03-07] MEDS: methylPREDNISolone SOD SUC 40 MG/1 ML VIAL IV SCH (10:35)
[2020-03-07] MEDS: DESITIN 4OZ/NYSTATIN 15 GRAM MIXTURE PASTE TOP SCH (10:35)
[2020-03-07] MEDS: CEFEPIME 1,000 MG in SODIUM CHLORIDE 0.9% 100 ML IV SCH (11:52)
[2020-03-07] MEDS ORDERED: PHENYLEPHRINE DRIP 40 MG/250 ML PREMIX IV PRN (19:00)
[2020-03-07 19:28] LABS: Calcium 9.9 MG/DL (8.5-10.1); Osmolality,Calculated 290.1 MOS/KG (273-304)
[2020-03-07] MEDS ORDERED: PHENYLEPHRINE DRIP 40 MG/250 ML PREMIX IV ONE (19:28)
[2020-03-07 19:35] LABS: Basophils % 0.2 % (0.0-0.8); Hematocrit 27.9 VOL% (42.0-52.0); Hemoglobin 8.1 GM/DL (14.0-18.0); Immature Granulocytes % 2.2 %; Lymphocytes # 1.9 10*3/uL (1.4-4.0); Lymphocytes % 20.6 % (21.2-54.2); Mean Corpuscular Volume 104.9 FL (87-102); Mean Platelet Volume 10.4 FL (9.6-12.0); Monocytes % 4.5 % (1.7-12.7); NRBC # 0.13 10*3/uL; Neutrophils % 72.5 % (38.7-73.9); Platelet Count 149 T/CUMM (130-400); Red Blood Count 2.66 MC/CUMM (3.8-5.5); White Blood Count 9.2 T/CUMM (4-12)
[2020-03-07] MEDS ORDERED: MORPHINE 4 MG/1 ML VIAL IV ONE (22:37)
[2020-03-08] MEDS ORDERED: MORPHINE 4 MG/1 ML VIAL IV PRN (00:51)
[2020-03-08 01:32] VITALS: BP 141/85
== END 2020-03-08 06:30 | disposition expired | DRG 264 ==
LOC: EDBD → EDUNIT# → N.ED 10:14 → SUATTDRO 14:26 → N.EDINP 14:26 → INTOOBSV 14:26 → N.TELES 15:25 → N.ICU 03-01 17:24 → SUATTDRO 03-02 09:38 → N.TELEN 03-06 15:50 → N.ICU 03-07 19:19 → N.TELEN 03-08 06:11
PROVIDERS: ADMIT Family Medicine; ATTEND Internal Medicine